=== PATIENT | female | born 1990 | race African-American/Black ===

== ENCOUNTER 2017-04-21 10:23 | Inpatient (IN) ==
[2017-04-21] MEDS ORDERED: SODIUM CHLORIDE 0.9% 250 ML IV PRN (11:23)
[2017-04-21] MEDS ORDERED: ACETAMINOPHEN 325 MG TABLET PO PRN (11:28)
--- NOTE | 2017-04-21 11:44 | Nephrology History & Physical ---
History of Present Illness Chief complaint: Uremia, anemia History of present illness: Ms. Carter is a 26 year old female with known chronic renal failure. She presents to the office today as a working and because of shortness of breath with exertion a.m. nausea and anorexia. Also with increasing edema. She has renal failure due to nephrosclerosis and hypertension. She was to have had a peritoneal catheter placed next week but with the development of symptomatic uremia we had recommended that she go ahead and begin hemodialysis and get a peritoneal catheter later. Creatinine is 9.8 She has a hematocrit of 22 and will need blood transfusion. Iron saturation is 13%. She will be given intravenous iron as well. She has 4 children at home and hopes to peritoneal dialysis will allow her to be with them more. For now she needs to go ahead and begin dialysis, get transfused, and began to feel better. Home Medications Medication Instructions Recorded Confirmed Type Insulin Glargine,Hum.rec.anlog 10 unit SUBCUT BEDTIME 04/13/17 04/21/17 History [Kristen Ruvalcaba] Sodium Bicarb Tab 650 mg PO BID 04/13/17 04/21/17 History amLODIPine [Norvasc] 10 mg PO DAILY 04/13/17 04/21/17 History Allergies Allergy/AdvReac Type Severity Reaction Status Date / Time No Known Allergies Allergy Verified 04/21/17 11:25 Review of Systems 12 point system: reviewed and no additional remarkable complaints except as stated Medical,Surgical,& Family Hx - Medical History Cardio: History of: Hypertension HEENT: History of: Eye Problem (Wears glasses) Endocrine: History of: Diabetes Mellitus (IDDM), Diabetes Mellitus (NIDDM) Respiratory: History of: Pneumonia Renal: History of: Renal Failure Hematology: History of: Anemia - Surgical History HEENT Surgeries: Surgical HX of: Tonsilectomy & Adenoidectomy - Family History Family History: Reports;: Family Hypertension (Father, sister), Family Psychiatric Problems (brother, sister) Denies;: Family Anesthesia Reaction, Family Cancer, Family Diabetes, Family Heart Disease, Family Stroke - Social History Smoking Status: Current every day smoker Exam - Nephrology - General Appearance General appearance: anxious EENT: ATNC Neck: no JVD, no thyromegaly, no carotid bruit, supple Respiratory: no kyphosis, no scoliosis Cardiology: no murmurs, no rub, no gallops, no edema, regular rate, regular rhythm, normal S1, normal S2 Gastrointestinal: normoactive bowel sounds Integumentary: no rash, warm and dry Neurologic: no focal deficit, no asterixis, alert and oriented x3, reflexes 2+ and symmetric, gait normal, strength 5/5 Musculoskeletal: no deformities, no erythema, no cyanosis, no clubbing Psychiatric: mood/affect appropriate (2+ edema), cooperative Assessment and Plan (1) ESRD (end stage renal disease) Status: Acute Assessment and plan: Begin hemodialysis Current Visit: Yes (2) Anemia Status: Acute Current Visit: Yes Qualifiers: Anemia type: due to chronic kidney disease
[2017-04-21] MEDS ORDERED: GLUCAGON 1 MG VIAL IM PRN ×2 (11:49→17:18)
[2017-04-21] MEDS ORDERED: DEXTROSE 50% 25 GM/50 ML SYRINGE IV PRN (11:49)
--- NOTE | 2017-04-21 12:15 | General Surgery Consult Note ---
Assessment and Plan (1) ESRD (end stage renal disease) Status: Acute Assessment and plan: Patient has peritoneal catheter placement scheduled for Wednesday, April 26, 2017. At this time she has developed worsening renal failure with symptomatic uremia and it is recommended she proceed with hemodialysis today, so she will require placement of a tunneled hemodialysis catheter. Current Visit: Yes History of Present Illness Chief complaint: increased edema History of present illness: Ms. 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 Rivera with placement of peritoneal catheter scheduled for April. Unfortunately in the interim, the patient has developed nausea symptomatic uremia with creatinine of 9.8. She was admitted for tunneled hemodialysis catheter placement to receive hemodialysis and blood transfusion. Home Medications Medication Instructions Recorded Confirmed Type Insulin Glargine,Hum.rec.anlog 10 unit SUBCUT BEDTIME 04/13/17 04/21/17 History [Toujeo SoloStar] Sodium Bicarb Tab 650 mg PO BID 04/13/17 04/21/17 History amLODIPine [Norvasc] 10 mg PO DAILY 04/13/17 04/21/17 History Gabapentin Cap/Tab [Neurontin 300 mg PO BEDTIME 04/21/17 04/21/17 History Cap/Tab] Allergies Allergy/AdvReac Type Severity Reaction Status Date / Time No Known Allergies Allergy Verified 04/21/17 11:25 Medical,Surgical,& Family Hx - Medical History Cardio: History of: Hypertension HEENT: History of: Eye Problem (Wears glasses) Endocrine: History of: Diabetes Mellitus (IDDM), Diabetes Mellitus (NIDDM) Respiratory: History of: Pneumonia Renal: History of: Renal Failure (ESRD - progressed secondary to nephrosclerosis due to HTN) Hematology: History of: Anemia - Surgical History HEENT Surgeries: Surgical HX of: Tonsilectomy & Adenoidectomy - Family History Family History: Reports;: Family Hypertension (Father, sister), Family Psychiatric Problems (brother, sister) Denies;: Family Anesthesia Reaction - Social History Smoking Status: Current every day smoker Frequency of Alcohol Use: None Type of Drug Use: None - Constitutional Constitutional: Absent: chills, fever(s) - Cardiovascular Cardiovascular: Absent: chest pain at rest, chest pain with activity - Respiratory Respiratory: Present: as per HPI. Absent: wheezing - Gastrointestinal Gastrointestinal: Present: as per HPI. Absent: diarrhea, vomiting Exam - Constitutional Vitals: Period Temp Pulse Resp BP Sys/Ayoub Pulse Ox Last 24 Hr 98.4 F 104 16-18 149/88 100 General appearance: no acute distress - Respiratory Respiratory exam: Present: clear to auscultation bilaterally - Cardiovascular Cardiovascular exam: Present: RRR - GI/Abdominal GI/Abdominal exam: Present: normal bowel sounds, soft. Absent: tenderness - Neurological Exam Neurological exam: Present: alert, oriented X3 - Skin Skin exam: Present: normal color Results - Labs Labs: Pending Dr. Valdes reported creatinine 9.8 in office and Hct 22.
[2017-04-21 12:35] LABS: Alanine Aminotransferase 18 U/L (13-56); Albumin 3.3 G/DL (3.4-5.0); Alkaline Phosphatase 95 U/L (45-117); Aspartate Amino Transferase 14 U/L (0-37); Bilirubin,Total < 0.39 MG/DL (0.2-1.0); Blood Urea Nitrogen 60 MG/DL (7-18); Calcium 8.8 MG/DL (8.5-10.1); Glucose 187 MG/DL (74-106); Osmolality,Calculated 300.4 MOS/KG (273-304); Potassium 5.1 MMOL/L (3.5-5.1); Sodium 140 MMOL/L (136-145); Total Protein 7.4 G/DL (6.4-8.3)
[2017-04-21] MEDS ORDERED: BUPIVACAINE 0.25% 50 ML VIAL ONE (12:39)
[2017-04-21] MEDS ORDERED: LIDOCAINE 1%/EPI INJ 20 ML VIAL ONE (12:39)
[2017-04-21] MEDS ORDERED: HEPARIN 5,000 UNIT/1 ML VIAL ONE (12:39)
[2017-04-21] MEDS ORDERED: LIDOCAINE 2% 5 ML VIAL ONE (13:40)
[2017-04-21] MEDS ORDERED: DEXAMETHASONE 4 MG/1 ML VIAL ONE (13:40)
[2017-04-21] MEDS ORDERED: PROPOFOL 200 MG/20 ML VIAL IV ONE (13:40)
[2017-04-21] MEDS ORDERED: ONDANSETRON 4 MG/2 ML VIAL ONE (13:40)
[2017-04-21] MEDS ORDERED: KETAMINE 500 MG/10 ML VIAL ONE (13:58)
--- NOTE | 2017-04-21 14:17 | Anesthesia Post-Op ---
Anesthesia Post OP - Post Ansesthetic Evaluation Patient seen in post op: Yes Resp: within normal limits CV: within normal limits Mental: within normal limits Temp: within normal limits [id number]: within normal limits Nausea and Vomiting: within normal limits Pain: within normal limits
[2017-04-21] MEDS ORDERED: fentaNYL 100 MCG/2 ML VIAL ONE (14:20)
[2017-04-21] MEDS ORDERED: MIDAZOLAM 2 MG/2 ML VIAL ONE (14:20)
--- NOTE | 2017-04-21 14:40 | XRay Report ---
Exam: XR chest 1V portable Date: 04/21/2017 2:04 PM Indication: Dialysis catheter placement Comparison: 11/03/2013 Technical: AP Findings: A right IJ dialysis catheter has been placed with the distal tip in the right atrium. Mild cardiac enlargement. No pneumothorax. External cardiac leads are present. Mediastinum is intact. Mid inspiratory chest was obtained with mild interstitial edema Impression: 1. Interval placement of the right-sided dialysis catheter 2. Cardiomegaly with mild interstitial edema 3. No pneumothorax PROCEDURE INTERPRETED AT [facility] DEPARTMENT OF RADIOLOGY Final Report Signed by: Dr. Jim Lake
--- NOTE | 2017-04-21 15:18 | Dialysis Note ---
Dialysis Note - Dialysis Note First dialysis with catheter going well. Good blood flow and tolerating well. Will be transfused today. We will begin iron tomorrow since her iron saturation is only 13% and will begin Epogen tomorrow as well.
[2017-04-21] MEDS ORDERED: EPOETIN ALFA 10,000 UNIT/1 ML VIAL IV PRN (15:19)
--- NOTE | 2017-04-21 16:07 | Operative Note ---
Date of procedure: 04/21/17 Pre-op diagnosis: End-stage renal disease Post-op diagnosis: same Procedure: Procedure performed: Placement of right internal jugular tunneled hemodialysis catheter Procedure in detail: After informed consent was obtained, the patient was taken operating suite lies upon the operating table. After monitored anesthesia initiated the bilateral neck and chest were prepped and draped in usual sterile fashion. After procedural pause local anesthetic infiltrated skin and subcutaneous tissue the right neck. Ultrasound confirmed a patent and compressible right internal jugular vein. The right internal jugular vein was then accessed using an 18-gauge Seldinger needle under ultrasound guidance on the first attempt. There was return of nonpulsatile dark red blood. Guidewire inserted without resistance. Fluoroscopy demonstrated guidewire be coursing in the appropriate position. Next a 19 cm cuffed hemodialysis catheter was tunneled from a separate incision in the right chest wall up to the base the right neck. Dilator and sheath were placed over the guidewire using Seldinger technique under fluoroscopic guidance. The dilator and guidewire were removed leaving the sheath in place. Catheter inserted through the sheath and sheath peeled away leaving the catheter tip at the junction of the superior vena cava and right atrium. Catheter was slightly longer than usual but I was unable to bring it any further back because on the outside it would be intact to her right breast. The catheter withdrew and flushed easily and was locked with heparinized saline. There was good hemostasis and the incision was closed with 2-0 nylon. Catheter was secured in place with 2-0 nylon. Sterile dressings applied. The patient was taken recovery room in stable condition. All lap and needle counts correct at the end of the case. Anesthesia: MAC, local Surgeon / Physician: Tristin Rivera Estimated blood loss: other (Less than 10 cc) Specimens: none sent Condition: stable Disposition: PACU Results - Labs CBC & BMP: 04/21/17 11:45 Discharge Plan - Discharge Medications No Action amLODIPine [Norvasc] 10 mg PO DAILY Sodium Bicarb Tab 650 mg PO BID Insulin Glargine,Hum.rec.anlog [Kristen Ruvalcaba] 10 unit SUBCUT BEDTIME Gabapentin Cap/Tab [Neurontin Cap/Tab] 300 mg PO BEDTIME - Follow Up or Referral - Forms/Instructions
[2017-04-21] MEDS ORDERED: HEPARIN 10,000 UNIT/10 ML VIAL IV PRN (16:40)
[2017-04-21] MEDS ORDERED: DEXTROSE 50% 25 GM/50 ML VIAL IV PRN (17:18)
--- NOTE | 2017-04-21 17:26 | Interventional Radiology Rpt ---
IR fluoro guide cv cath Indication: Dialysis catheter placement. Fluoroscopy chest: 2 captured fluoroscopic images show a tunneled right IJ dialysis catheter with the tip in the high right atrium. No pneumothorax seen. Fluoroscopy time: 10 seconds, 2 captured images. Impression: Dialysis catheter as described. PROCEDURE INTERPRETED AT [facility] DEPARTMENT OF RADIOLOGY Final Report Signed by: Chauncey Ramirez M.D.
[2017-04-21] MEDS: traMADol 50 MG TABLET PO PRN (17:45)
[2017-04-21] MEDS: INSULIN LISPRO 100 UNIT/ML SUBCUT SCH ×2 (17:46→20:49)
[2017-04-21] MEDS: MORPHINE 2 MG/1 ML SYRINGE IV PRN (19:47)
[2017-04-21] MEDS: GABAPENTIN 300 MG CAPSULE PO SCH (20:49)
[2017-04-22] MEDS ORDERED: IRON SUCROSE 100 MG/5 ML VIAL IV SCH (00:01)
[2017-04-22 06:28] LABS: Basophils % 0.4 % (0.0-0.8); Eosinophils # 0.3 10*3/uL (0.0-0.87); Eosinophils % 3.2 % (0.00-10.9); Hematocrit 28.7 VOL% (35.7-47.0); Hemoglobin 9.9 GM/DL (12.0-16.0); Immature Granulocytes % 0.5 %; Immature Granulocytes Absolute 0.05 #; Lymphocytes # 3.4 10*3/uL (1.4-4.0); Lymphocytes % 34.3 % (21.3-54.2); Mean Corpuscular HGB Conc 34.5 GM/DL (32-36); Mean Corpuscular Hemoglobin 28 PG (27-34); Mean Corpuscular Volume 81.1 FL (87-102); Mean Platelet Volume 8.4 FL (9.6-12.0); Monocytes # 0.6 10*3/uL (0.11-0.8); Neutrophils # 5.6 10*3/uL (1.4-7.4); Neutrophils % 55.6 % (38.7-73.9); Platelet Count 265 T/CUMM (130-400); Red Blood Count 3.54 MC/CUMM (3.8-5.5); Red Cell Distribution Width 14.6 % (9.3-17.3)
[2017-04-22 08:01] LABS: Hepatitis A Ab IgM Result Negative (Negative); Hepatitis B Core IgM Quant 0.15 Index; Hepatitis B Core IgM Result Negative (Negative); Hepatitis B Surface Ag Quant 0.34 Index; Hepatitis B Surface Ag Result Negative (Negative); Hepatitis C Virus Ab Quant 0.05 Index; Hepatitis C Virus Ab Result Negative (Negative)
[2017-04-22] MEDS: MORPHINE 2 MG/1 ML SYRINGE IV PRN ×3 (08:22→21:12)
[2017-04-22] MEDS: INSULIN LISPRO 100 UNIT/ML SUBCUT SCH ×4 (08:22→21:11)
[2017-04-22] MEDS: amLODIPine 10 MG TABLET PO SCH (08:22)
[2017-04-22] MEDS ORDERED: INSULIN GLARGINE 100 UNIT/ML SUBCUT SCH (09:00)
--- NOTE | 2017-04-22 12:43 | Dialysis Note ---
Dialysis Note - Dialysis Note Ms. Carter is seen during her hemodialysis. She received Venofer as an iron supplement today during dialysis and we remove 3 kg of volume. She is feeling better and says her chilly sensation has completely gone away after transfusion 2 units packed red cells. Her hematocrit is 28. Plan is for probable dialysis tomorrow and then discharge to outpatient status we are awaiting a dialysis schedule as an outpatient.
--- NOTE | 2017-04-22 13:51 | Event Note ---
Patient was on her 1 status post tunneled hemodialysis catheter placement the right internal jugular vein for urgent dialysis. She has received dialysis and blood transfusion through this access without complication. There is no local evidence of an infection or hematoma. She feels much improved since admission. Patient is scheduled for peritoneal dialysis catheter on Wednesday and has instructions for arrival.
[2017-04-22] MEDS: traMADol 50 MG TABLET PO PRN (14:09)
[2017-04-22] MEDS: GABAPENTIN 300 MG CAPSULE PO SCH (21:11)
[2017-04-23 07:46] VITALS: BP 138/88
[2017-04-23] MEDS: amLODIPine 10 MG TABLET PO SCH (09:05)
[2017-04-23] MEDS: INSULIN LISPRO 100 UNIT/ML SUBCUT SCH ×2 (09:05→11:53)
--- NOTE | 2017-04-23 09:55 | Dialysis Note ---
Dialysis Note - Dialysis Note Ms. Carter is seen during her hemodialysis. She is tolerating it well we are removing more fluid today she will be discharged postdialysis and will have her peritoneal catheter placed on Wednesday. She will then go for hemodialysis Wednesday at the [facility].
--- NOTE | 2017-04-23 09:57 | Discharge Summary ---
Hospital Course - Hospital Course Hospital Course: Ms. Carter is a 26-year-old lady who presented with uremia and was admitted for placement of hemodialysis catheter and institution of dialysis. Dr. Rivera placed catheter and she had dialysis on the . She received 2 units packed red cells on the and experienced significant improvement in her exercise tolerance. She has a hematocrit of approximately 28 at discharge and is now well dialyzed. He ultimately hopes to do peritoneal dialysis and was scheduled to have peritoneal dialysis catheter placed on this coming Wednesday. She will have that done and we will continue with hemodialysis until she is able to begin training with her peritoneal dialysis. She will be followed in the hemodialysis unit and subsequently in the peritoneal dialysis unit. See medication list below Final diagnosis end-stage renal disease #2 symptomatic anemia #3 hypertension Disposition hemo-dialysis Wednesday thank you - Time spent with patient Time with patient DS: Greater than 30 minutes Time spent discussing smoking cessation with patient: 3 to 10 minutes Diagnosis - Discharge Diagnosis (1) ESRD (end stage renal disease) Status: Acute (2) Anemia Status: Chronic Specialty Discharge - Follow Up or Referrals - Speciality Discharge Instructions Nephrology Instructions: Hemodialysis as scheduled Wednesday. Placement of peritoneal catheter next week by Dr. Abernathy as scheduled. Discharge Plan - Discharge Data Condition at Discharge: Stable Discharge Diet: advance to your usual diet Activity: resume usual activities as tolerated Hygiene: no restrictions Weight Bearing at Discharge: full weight bearing Driving: no restrictions - Discharge Medications New Iron Sucrose [Venofer] 100 mg IV WITH DIALYSIS vial traMADol TAB [Ultram] 50 mg PO Q6H PRN tablet PRN Reason: Pain Acetaminophen Tab [Tylenol Tab] 650 mg PO Q6H PRN tablet PRN Reason: Fever, Headache, Mild Pain amLODIPine [Norvasc] 10 mg PO DAILY tablet Continue Gabapentin Cap/Tab [Neurontin Cap/Tab] 300 mg PO BEDTIME No Action amLODIPine [Norvasc] 10 mg PO DAILY Sodium Bicarb Tab 650 mg PO BID Insulin Glargine,Hum.rec.anlog [Kristen Ruvalcaba] 10 unit SUBCUT BEDTIME - Follow Up or Referral - Forms/Instructions Exam - Constitutional Vitals: Period Temp Pulse Resp BP Sys/Ayoub Pulse Ox Last 24 Hr 97.0 F-98.8 F 85-107 16-20 128-155/70-98 92-98 Discharge Results Labs on day of discharge: Labs from last 24 hours 04/22/17 04/22/17 04/22/17 20:03 16:09 13:36 POC Glucose 110 H 343 H 138 H DS: Provider Date of admission: 04/21/17 10:48 Primary care physician: GAMA Dorman Attending physician on admission: Gene Valdes MD Consults: 04/21/17 12:10 Consult to Physician [CONS] Routine Comment: Consulting Provider: Tristin Rivera Person Notified: Attending physician Consult Notification Comment: No call required. Dr. Rivera aware and has seen patient. 04/21/17 12:53 Consult to Case Mgmt/Social Srvs [CONS] Routine Reason for Case Mgmt/Social Srvs: Other Consult Comment: having trouble getting insulin and diabetic supplies /ins related 04/21/17 14:36 Consult to Case Mgmt/Social Srvs [CONS] Routine Reason for Case Mgmt/Social Srvs: Other Consult Comment: will be new hemodialysis pt 04/21/17 15:06 Consult to Case Mgmt/Social Srvs [CONS] Routine Reason for Case Mgmt/Social Srvs: Dialysis Consult Comment: arrange outpt dialysis Discharging clinician: Gene Valdes MD
== END 2017-04-23 14:44 | disposition home or self-care (01) | DRG 950 ==
LOC: N.5E 10:48
PROVIDERS: ADMIT Internal Medicine Nephrology; ATTEND Internal Medicine Nephrology

== ENCOUNTER 2018-03-30 22:32 | Inpatient (IN) ==
[2018-03-30] MEDS ORDERED: ONDANSETRON 4 MG/2 ML VIAL IV STA (23:12)
[2018-03-30] MEDS ORDERED: METOCLOPRAMIDE 10 MG/2 ML VIAL IV STA (23:12)
[2018-03-30] MEDS ORDERED: DICYCLOMINE 20 MG/2 ML AMP IM ONE (23:12)
[2018-03-31 00:01] LABS: Basophils % 0.1 % (0.0-0.8); Eosinophils # 0.2 10*3/uL (0.0-0.87); Eosinophils % 1.3 % (0.00-10.9); Hematocrit 36.7 VOL% (35.7-47.0); Hemoglobin 11.6 GM/DL (12.0-16.0); Immature Granulocytes % 0.5 %; Immature Granulocytes Absolute 0.08 #; Lymphocytes # 2.5 10*3/uL (1.4-4.0); Lymphocytes % 16.6 % (21.3-54.2); Mean Corpuscular HGB Conc 31.6 GM/DL (32-36); Mean Corpuscular Hemoglobin 25 PG (27-34); Mean Corpuscular Volume 78.1 FL (87-102); Mean Platelet Volume 9.9 FL (9.6-12.0); Monocytes # 0.6 10*3/uL (0.11-0.8); Monocytes % 3.9 % (1.7-12.7); Neutrophils # 11.4 10*3/uL (1.4-7.4); Neutrophils % 77.6 % (38.7-73.9); Platelet Count 238 T/CUMM (130-400); Red Cell Distribution Width 17.9 % (9.3-17.3); White Blood Count 14.7 T/CUMM (4-12)
[2018-03-31 00:16] LABS: Alanine Aminotransferase 16 U/L (13-56); Albumin 2.7 G/DL (3.4-5.0); Alkaline Phosphatase 132 U/L (45-117); Amylase 92 U/L (25-115); Aspartate Amino Transferase 23 U/L (0-37); Bilirubin,Total < 0.39 MG/DL (0.2-1.0); Blood Urea Nitrogen 44 MG/DL (7-18); Calcium 8.6 MG/DL (8.5-10.1); Glucose 117 MG/DL (74-106); Lactic Acid 0.8 MMOL/L (0.4-2.0); Osmolality,Calculated 292.3 MOS/KG (273-304); Potassium 3.6 MMOL/L (3.5-5.1); Sodium 141 MMOL/L (136-145); Total Protein 7.2 G/DL (6.4-8.3)
[2018-03-31] MEDS ORDERED: ONDANSETRON 4 MG/2 ML VIAL IV STA (00:39)
[2018-03-31] MEDS ORDERED: fentaNYL 100 MCG/2 ML VIAL IV STA (00:39)
[2018-03-31] MEDS ORDERED: hydrALAZINE 20 MG/1 ML VIAL IV STA (01:07)
[2018-03-31] MEDS ORDERED: HYDROmorphone 2 MG/1 ML VIAL IV ONE (02:33)
[2018-03-31] MEDS ORDERED: PROMETHAZINE 25 MG/1 ML VIAL IM STA (02:33)
[2018-03-31] MEDS ORDERED: HYDROmorphone 2 MG/1 ML VIAL ONE (02:35)
[2018-03-31 02:59] LABS: RBC,Peritoneal Fluid 2153 T/CUMM
[2018-03-31 03:03] LABS: Neutrophils,Peritoneal Fluid 86 %
[2018-03-31] MEDS ORDERED: VANCOMYCIN INJ 1,000 MG in SODIUM CHLORIDE 0.9% 250 ML IV ONE (03:53)
[2018-03-31] MEDS ORDERED: LACTULOSE 20 GM/30 ML UDCUP PO PRN (03:53)
[2018-03-31] MEDS ORDERED: diphenhydrAMINE CAP 25 MG CAPSULE PO PRN (03:53)
[2018-03-31] MEDS ORDERED: ONDANSETRON 4 MG/2 ML VIAL IV PRN (03:53)
[2018-03-31] MEDS ORDERED: ACETAMINOPHEN 325 MG TABLET PO PRN (03:53)
[2018-03-31] MEDS ORDERED: GLUCAGON 1 MG VIAL IM PRN ×2 (04:11→08:00)
[2018-03-31] MEDS: SODIUM CHLORIDE 0.9% 1,000 ML IV SCH (05:01)
[2018-03-31] MEDS: MORPHINE 4 MG/1 ML VIAL IV PRN (06:11)
[2018-03-31 06:20] LABS: Basophils % 0.1 % (0.0-0.8); Eosinophils % 0.1 % (0.00-10.9); Hematocrit 38.2 VOL% (35.7-47.0); Hemoglobin 12.1 GM/DL (12.0-16.0); Immature Granulocytes % 0.5 %; Immature Granulocytes Absolute 0.05 #; Lymphocytes % 18.1 % (21.3-54.2); Mean Corpuscular HGB Conc 31.7 GM/DL (32-36); Mean Corpuscular Hemoglobin 25 PG (27-34); Mean Corpuscular Volume 78.3 FL (87-102); Mean Platelet Volume 9.5 FL (9.6-12.0); Monocytes # 0.4 10*3/uL (0.11-0.8); Monocytes % 3.5 % (1.7-12.7); Neutrophils # 8.5 10*3/uL (1.4-7.4); Neutrophils % 77.7 % (38.7-73.9); Platelet Count 252 T/CUMM (130-400); Red Blood Count 4.88 MC/CUMM (3.8-5.5); Red Cell Distribution Width 18.5 % (9.3-17.3)
[2018-03-31 06:55] LABS: Albumin 2.6 G/DL (3.4-5.0); Bilirubin,Total 0.6 MG/DL (0.2-1.0); Calcium 8.6 MG/DL (8.5-10.1); Osmolality,Calculated 288.5 MOS/KG (273-304); Total Protein 7.4 G/DL (6.4-8.3)
[2018-03-31] MEDS ORDERED: DEXTROSE 50% 25 GM/50 ML VIAL IV PRN (08:00)
[2018-03-31] MEDS ORDERED: SEVELAMER CARBONATE 800 MG TABLET PO SCH (09:00)
[2018-03-31] MEDS: INSULIN REGULAR 100 UNIT/ML SUBCUT SCH ×4 (09:08→20:54)
[2018-03-31] MEDS: IRBESARTAN 150 MG TABLET PO SCH (09:09)
[2018-03-31] MEDS: CARVEDILOL 25 MG TABLET PO SCH ×2 (09:09→20:52)
[2018-03-31] MEDS: CALCITRIOL 0.25 MCG CAPSULE PO SCH (09:09)
[2018-03-31] MEDS: amLODIPine 10 MG TABLET PO SCH (09:09)
[2018-03-31] MEDS: CINACALCET 30 MG TABLET PO SCH (09:09)
[2018-03-31] MEDS: DEXTROSE 50% 25 GM/50 ML VIAL IV PRN ×2 (11:07→11:40)
[2018-03-31] MEDS ORDERED: GENTAMICIN 80 MG/2 ML VIAL INTRAPERIT ONE (11:09)
[2018-03-31] MEDS: SEVELAMER CARBONATE 800 MG TABLET PO SCH ×2 (11:56→16:51)
[2018-03-31 14:16] LABS: Apearance,Urine CLEAR (Clear); Bacteria,Urine Occasional /HPF (Few); Bilirubin,Urine Negative (Negative); Blood, Urine Small mg/dL (Negative); Glucose,Urine (UA) 150 mg/dL (Negative); Ketones,Urine Negative (Negative); Mucus,Urine Occasional /LPF (Occasional); Nitrite,Urine Negative (Negative); Protein,Urine >=500 MG/DL; RBC,Urine 4 /HPF (0-4); Squamous Epithelial Cell,Urine Occasional /HPF (0-10); Urine Color Straw (Yellow); Urine Specific Gravity 1.005 (1.001-1.035); Urine Urobilinogen < 2.0 EU/DL (0.2-1.0); WBC,Urine 9 /HPF (0-6)
[2018-03-31] MEDS ORDERED: GENTAMICIN 80 MG/2 ML VIAL INTRAPERIT SCH (18:00)
[2018-03-31] MEDS ORDERED: INSULIN GLARGINE 100 UNIT/ML SUBCUT SCH (21:00)
[2018-04-01] MEDS: MORPHINE 4 MG/1 ML VIAL IV PRN (00:03)
[2018-04-01] MEDS: GENTAMICIN 80 MG/2 ML VIAL INTRAPERIT SCH ×4 (00:08→18:45)
[2018-04-01] MEDS: SODIUM CHLORIDE 0.9% 1,000 ML IV SCH ×2 (03:20→23:49)
[2018-04-01] MEDS: INSULIN REGULAR 100 UNIT/ML SUBCUT SCH ×5 (08:14→23:00)
[2018-04-01] MEDS: CARVEDILOL 25 MG TABLET PO SCH ×2 (08:27→21:52)
[2018-04-01] MEDS: CINACALCET 30 MG TABLET PO SCH (08:27)
[2018-04-01] MEDS: CALCITRIOL 0.25 MCG CAPSULE PO SCH (08:27)
[2018-04-01] MEDS: amLODIPine 10 MG TABLET PO SCH (08:27)
[2018-04-01] MEDS: SEVELAMER CARBONATE 800 MG TABLET PO SCH ×3 (08:27→17:06)
[2018-04-01] MEDS: IRBESARTAN 150 MG TABLET PO SCH (08:27)
[2018-04-01] MEDS ORDERED: VANCOMYCIN INJ 1,000 MG in SODIUM CHLORIDE 0.9% 250 ML IV PRN (13:00)
[2018-04-02] MEDS: GENTAMICIN 80 MG/2 ML VIAL INTRAPERIT SCH ×4 (00:15→17:58)
[2018-04-02] MEDS: SODIUM CHLORIDE 0.9% 1,000 ML IV SCH (06:22)
[2018-04-02] MEDS: SEVELAMER CARBONATE 800 MG TABLET PO SCH ×3 (08:29→17:29)
[2018-04-02] MEDS: amLODIPine 10 MG TABLET PO SCH (08:29)
[2018-04-02] MEDS: CALCITRIOL 0.25 MCG CAPSULE PO SCH (08:29)
[2018-04-02] MEDS: CARVEDILOL 25 MG TABLET PO SCH ×2 (08:29→21:09)
[2018-04-02] MEDS: CINACALCET 30 MG TABLET PO SCH (08:29)
[2018-04-02] MEDS: IRBESARTAN 150 MG TABLET PO SCH (08:29)
[2018-04-02] MEDS ORDERED: VANCOMYCIN INJ 1,000 MG in SODIUM CHLORIDE 0.9% 250 ML IV ONE (09:00)
[2018-04-02] MEDS: INSULIN REGULAR 100 UNIT/ML SUBCUT SCH ×3 (10:26→17:28)
[2018-04-03] MEDS: GENTAMICIN 80 MG/2 ML VIAL INTRAPERIT SCH ×4 (00:09→18:34)
[2018-04-03] MEDS: SODIUM CHLORIDE 0.9% 1,000 ML IV SCH (03:51)
[2018-04-03] MEDS: amLODIPine 10 MG TABLET PO SCH (08:44)
[2018-04-03] MEDS: SEVELAMER CARBONATE 800 MG TABLET PO SCH ×3 (08:44→17:02)
[2018-04-03] MEDS: CALCITRIOL 0.25 MCG CAPSULE PO SCH (08:44)
[2018-04-03] MEDS: CARVEDILOL 25 MG TABLET PO SCH ×2 (08:44→22:08)
[2018-04-03] MEDS: IRBESARTAN 150 MG TABLET PO SCH (08:44)
[2018-04-03] MEDS: INSULIN REGULAR 100 UNIT/ML SUBCUT SCH ×4 (08:44→22:16)
[2018-04-03] MEDS: CINACALCET 30 MG TABLET PO SCH (08:45)
[2018-04-04] MEDS: GENTAMICIN 80 MG/2 ML VIAL INTRAPERIT SCH ×3 (00:12→12:25)
[2018-04-04] MEDS: INSULIN REGULAR 100 UNIT/ML SUBCUT SCH ×3 (10:05→16:54)
[2018-04-04] MEDS: CALCITRIOL 0.25 MCG CAPSULE PO SCH (10:06)
[2018-04-04] MEDS: CARVEDILOL 25 MG TABLET PO SCH (10:06)
[2018-04-04] MEDS: CINACALCET 30 MG TABLET PO SCH (10:06)
[2018-04-04] MEDS: IRBESARTAN 150 MG TABLET PO SCH (10:06)
[2018-04-04] MEDS: SEVELAMER CARBONATE 800 MG TABLET PO SCH ×3 (10:06→16:35)
[2018-04-04] MEDS: amLODIPine 10 MG TABLET PO SCH (10:06)
[2018-04-04 16:21] VITALS: BP 133/85
[2018-04-04] MEDS ORDERED: VANCOMYCIN INJ 1,000 MG in SODIUM CHLORIDE 0.9% 250 ML IV ONE (21:00)
== END 2018-04-04 16:45 | disposition home or self-care (01) | DRG 466 ==
LOC: EDUNIT# → EDBD → N.ED 22:32 → N.EDINP 22:32 → SUATTDRO 03-31 03:42 → N.5E 03-31 05:15 → SUATTDRO 04-01 12:35
PROVIDERS: ADMIT Nurse Practitioner Adult Health; ATTEND Internal Medicine

== ENCOUNTER 2018-10-02 12:52 | Inpatient (IN) ==
[2018-10-02] MEDS ORDERED: amLODIPine 5 MG TABLET PO STA (13:37)
[2018-10-02] MEDS ORDERED: CARVEDILOL 3.125 MG TABLET PO STA (13:40)
[2018-10-02 13:51] LABS: Basophils % 0.4 % (0.0-0.8); Eosinophils # 0.1 10*3/uL (0.0-0.87); Eosinophils % 1.6 % (0.00-10.9); Hematocrit 35.7 VOL% (35.7-47.0); Hemoglobin 10.8 GM/DL (12.0-16.0); Immature Granulocytes % 0.5 %; Immature Granulocytes Absolute 0.04 #; Lymphocytes # 1.8 10*3/uL (1.4-4.0); Lymphocytes % 24.4 % (21.3-54.2); Mean Corpuscular HGB Conc 30.3 GM/DL (32-36); Mean Corpuscular Hemoglobin 23 PG (27-34); Mean Corpuscular Volume 76.9 FL (87-102); Mean Platelet Volume 9.2 FL (9.6-12.0); Monocytes # 0.5 10*3/uL (0.11-0.8); Neutrophils # 4.9 10*3/uL (1.4-7.4); Neutrophils % 66.1 % (38.7-73.9); Platelet Count 201 T/CUMM (130-400); Red Blood Count 4.64 MC/CUMM (3.8-5.5); Red Cell Distribution Width 18.9 % (9.3-17.3); White Blood Count 7.4 T/CUMM (4-12)
[2018-10-02 14:07] LABS: Bilirubin,Total 0.4 MG/DL (0.2-1.0); Calcium 8.1 MG/DL (8.5-10.1); Osmolality,Calculated 283.7 MOS/KG (273-304); Potassium 3.5 MMOL/L (3.5-5.1); Total Protein 6.7 G/DL (6.4-8.3)
[2018-10-02 15:10] LABS: Apearance,Urine Slightly Hazy (Clear); Bilirubin,Urine Negative (Negative); Blood, Urine Small mg/dL (Negative); Glucose,Urine (UA) 50 mg/dL (Negative); Ketones,Urine Negative (Negative); Mucus,Urine Occasional /LPF (Occasional); Nitrite,Urine Negative (Negative); Protein,Urine >=500 MG/DL; RBC,Urine 10 /HPF (0-4); Squamous Epithelial Cell,Urine Occasional /HPF (0-10); Urine Color Yellow (Yellow); Urine Specific Gravity 1.011 (1.001-1.035); Urine Urobilinogen < 2.0 EU/DL (0.2-1.0); WBC,Urine 6 /HPF (0-6)
[2018-10-02] MEDS: LOSARTAN 50 MG TABLET PO SCH (15:30)
[2018-10-02] MEDS ORDERED: BISACODYL 5 MG TABLET PO PRN (15:48)
[2018-10-02] MEDS ORDERED: GLUCAGON 1 MG VIAL IM PRN (15:48)
[2018-10-02] MEDS ORDERED: DEXTROSE 50% 25 GM/50 ML VIAL IV PRN (15:48)
[2018-10-02] MEDS ORDERED: ZALEPLON 5 MG CAPSULE PO PRN (15:48)
[2018-10-02 17:22] LABS: Neutrophils,Peritoneal Fluid 59 %; RBC,Peritoneal Fluid 46 T/CUMM
[2018-10-02] MEDS ORDERED: MORPHINE 4 MG/1 ML VIAL IV STA (18:06)
[2018-10-02] MEDS ORDERED: ONDANSETRON 4 MG/2 ML VIAL ONE (18:07)
[2018-10-02] MEDS ORDERED: MORPHINE 4 MG/1 ML VIAL ONE (18:08)
[2018-10-02] MEDS: ONDANSETRON 4 MG/2 ML VIAL IV PRN (18:13)
[2018-10-02] MEDS: CARVEDILOL 25 MG TABLET PO SCH (20:30)
[2018-10-02] MEDS ORDERED: SEVELAMER HCL 800 MG PO SCH (21:00)
[2018-10-02] MEDS: INSULIN NPH 100 UNIT/ML SUBCUT SCH (21:02)
[2018-10-02] MEDS: INSULIN REGULAR 100 UNIT/ML SUBCUT SCH (21:03)
[2018-10-02] MEDS: ENOXAPARIN 30 MG/0.3 ML SYRINGE SUBCUT SCH (21:03)
[2018-10-03 06:22] LABS: Basophils % 0.2 % (0.0-0.8); Eosinophils # 0.3 10*3/uL (0.0-0.87); Eosinophils % 3.1 % (0.00-10.9); Hematocrit 31.8 VOL% (35.7-47.0); Hemoglobin 9.9 GM/DL (12.0-16.0); Immature Granulocytes % 0.4 %; Immature Granulocytes Absolute 0.03 #; Lymphocytes # 2.6 10*3/uL (1.4-4.0); Lymphocytes % 32.5 % (21.3-54.2); Mean Corpuscular HGB Conc 31.1 GM/DL (32-36); Mean Corpuscular Hemoglobin 24 PG (27-34); Mean Platelet Volume 9.9 FL (9.6-12.0); Monocytes # 0.6 10*3/uL (0.11-0.8); Monocytes % 7.4 % (1.7-12.7); Neutrophils # 4.6 10*3/uL (1.4-7.4); Neutrophils % 56.4 % (38.7-73.9); Platelet Count 211 T/CUMM (130-400); Red Blood Count 4.13 MC/CUMM (3.8-5.5); Red Cell Distribution Width 18.8 % (9.3-17.3); White Blood Count 8.1 T/CUMM (4-12)
[2018-10-03] MEDS: INSULIN REGULAR 100 UNIT/ML SUBCUT SCH ×4 (07:49→21:30)
[2018-10-03] MEDS: INSULIN NPH 100 UNIT/ML SUBCUT SCH ×2 (08:46→16:05)
[2018-10-03] MEDS: CARVEDILOL 25 MG TABLET PO SCH ×2 (08:47→21:29)
[2018-10-03] MEDS: CINACALCET 30 MG TABLET PO SCH (08:47)
[2018-10-03] MEDS: CALCITRIOL 0.25 MCG CAPSULE PO SCH (08:47)
[2018-10-03] MEDS: LOSARTAN 50 MG TABLET PO SCH (08:47)
[2018-10-03] MEDS: amLODIPine 10 MG TABLET PO SCH (08:47)
[2018-10-03] MEDS ORDERED: IRBESARTAN 150 MG TABLET PO SCH (09:00)
[2018-10-03] MEDS: ENOXAPARIN 30 MG/0.3 ML SYRINGE SUBCUT SCH ×2 (21:29→21:33)
[2018-10-04 05:48] LABS: Basophils % 0.1 % (0.0-0.8); Eosinophils # 0.2 10*3/uL (0.0-0.87); Hematocrit 27.7 VOL% (35.7-47.0); Hemoglobin 8.7 GM/DL (12.0-16.0); Immature Granulocytes % 0.3 %; Immature Granulocytes Absolute 0.03 #; Lymphocytes # 2.2 10*3/uL (1.4-4.0); Lymphocytes % 25.7 % (21.3-54.2); Mean Corpuscular HGB Conc 31.4 GM/DL (32-36); Mean Corpuscular Hemoglobin 24 PG (27-34); Mean Corpuscular Volume 75.3 FL (87-102); Mean Platelet Volume 10.3 FL (9.6-12.0); Monocytes # 0.6 10*3/uL (0.11-0.8); Monocytes % 7.1 % (1.7-12.7); Neutrophils # 5.6 10*3/uL (1.4-7.4); Neutrophils % 64.8 % (38.7-73.9); Platelet Count 221 T/CUMM (130-400); Red Blood Count 3.68 MC/CUMM (3.8-5.5); Red Cell Distribution Width 18.5 % (9.3-17.3); White Blood Count 8.6 T/CUMM (4-12)
[2018-10-04 06:05] LABS: Calcium 6.9 MG/DL (8.5-10.1); Osmolality,Calculated 277.1 MOS/KG (273-304); Potassium 3.3 MMOL/L (3.5-5.1)
[2018-10-04] MEDS: INSULIN NPH 100 UNIT/ML SUBCUT SCH ×2 (07:49→17:40)
[2018-10-04] MEDS: INSULIN REGULAR 100 UNIT/ML SUBCUT SCH ×4 (07:49→21:29)
[2018-10-04] MEDS: CARVEDILOL 25 MG TABLET PO SCH ×2 (09:08→20:32)
[2018-10-04] MEDS: CALCITRIOL 0.25 MCG CAPSULE PO SCH (09:08)
[2018-10-04] MEDS: amLODIPine 10 MG TABLET PO SCH (09:08)
[2018-10-04] MEDS: LOSARTAN 50 MG TABLET PO SCH (09:08)
[2018-10-04] MEDS: CINACALCET 30 MG TABLET PO SCH (09:08)
[2018-10-04] MEDS ORDERED: MAGNESIUM SULF RIDER 4 GM in PREMIX 1 EACH IV PRN (17:07)
[2018-10-04] MEDS ORDERED: ACETAMINOPHEN 325 MG TABLET PO PRN (17:58)
[2018-10-04] MEDS: MORPHINE 4 MG/1 ML VIAL IV PRN (18:07)
[2018-10-04] MEDS: MAGNESIUM SULF RIDER 2 GM in PREMIX 1 EACH IV PRN ×2 (18:08→19:48)
[2018-10-04] MEDS: POTASSIUM CHLORIDE 20 MEQ TABLET PO PRN ×2 (19:46→21:30)
[2018-10-04] MEDS: ONDANSETRON 4 MG/2 ML VIAL IV PRN (19:53)
[2018-10-04] MEDS: ENOXAPARIN 30 MG/0.3 ML SYRINGE SUBCUT SCH (23:11)
[2018-10-05] MEDS: MORPHINE 4 MG/1 ML VIAL IV PRN (00:09)
[2018-10-05] MEDS: ONDANSETRON 4 MG/2 ML VIAL IV PRN (00:11)
[2018-10-05] MEDS: POTASSIUM CHLORIDE 20 MEQ TABLET PO PRN (00:14)
[2018-10-05] MEDS: ceFAZolin 1,000 MG VIAL INTRAPERIT SCH (01:20)
[2018-10-05] MEDS ORDERED: ceFAZolin 1,000 MG VIAL INTRAPERIT SCH (09:00)
[2018-10-05] MEDS: INSULIN REGULAR 100 UNIT/ML SUBCUT SCH ×4 (10:16→21:26)
[2018-10-05] MEDS: CARVEDILOL 25 MG TABLET PO SCH ×2 (10:18→20:56)
[2018-10-05] MEDS: LOSARTAN 50 MG TABLET PO SCH (10:18)
[2018-10-05] MEDS: amLODIPine 10 MG TABLET PO SCH (10:19)
[2018-10-05] MEDS: CALCITRIOL 0.25 MCG CAPSULE PO SCH (10:19)
[2018-10-05] MEDS: ENOXAPARIN 30 MG/0.3 ML SYRINGE SUBCUT SCH (21:27)
[2018-10-06] MEDS: ceFAZolin 1,000 MG VIAL INTRAPERIT SCH (00:17)
[2018-10-06 05:30] LABS: Basophils % 0.2 % (0.0-0.8); Eosinophils # 0.1 10*3/uL (0.0-0.87); Eosinophils % 1.2 % (0.00-10.9); Hematocrit 28.7 VOL% (35.7-47.0); Hemoglobin 9.1 GM/DL (12.0-16.0); Immature Granulocytes % 0.5 %; Immature Granulocytes Absolute 0.05 #; Lymphocytes # 1.5 10*3/uL (1.4-4.0); Lymphocytes % 15.3 % (21.3-54.2); Mean Corpuscular HGB Conc 31.7 GM/DL (32-36); Mean Corpuscular Hemoglobin 24 PG (27-34); Mean Corpuscular Volume 75.1 FL (87-102); Mean Platelet Volume 10.2 FL (9.6-12.0); Monocytes # 0.8 10*3/uL (0.11-0.8); Monocytes % 7.6 % (1.7-12.7); Neutrophils # 7.4 10*3/uL (1.4-7.4); Neutrophils % 75.2 % (38.7-73.9); Platelet Count 273 T/CUMM (130-400); Red Blood Count 3.82 MC/CUMM (3.8-5.5); Red Cell Distribution Width 18.5 % (9.3-17.3); White Blood Count 9.9 T/CUMM (4-12)
[2018-10-06] MEDS: MORPHINE 4 MG/1 ML VIAL IV PRN ×2 (05:38→12:20)
[2018-10-06 06:06] LABS: Calcium 7.3 MG/DL (8.5-10.1); Osmolality,Calculated 265.9 MOS/KG (273-304); Potassium 3.8 MMOL/L (3.5-5.1)
[2018-10-06] MEDS ORDERED: MEROPENEM 1,000 MG in SODIUM CHLORIDE 0.9% 100 ML IV SCH (07:00)
[2018-10-06] MEDS: INSULIN REGULAR 100 UNIT/ML SUBCUT SCH ×4 (07:46→20:08)
[2018-10-06] MEDS: ALBUTEROL/IPRATROPIUM 3 ML NEB RESP TX SCH ×3 (07:54→20:05)
[2018-10-06] MEDS ORDERED: LEVOFLOXACIN INJ 750 MG in PREMIX 1 EACH IV ONE (08:00)
[2018-10-06] MEDS: CALCITRIOL 0.25 MCG CAPSULE PO SCH (08:00)
[2018-10-06] MEDS: LOSARTAN 50 MG TABLET PO SCH (08:01)
[2018-10-06] MEDS: CARVEDILOL 25 MG TABLET PO SCH ×2 (08:01→21:19)
[2018-10-06] MEDS: amLODIPine 10 MG TABLET PO SCH (08:01)
[2018-10-06] MEDS: ONDANSETRON 4 MG/2 ML VIAL IV PRN ×2 (08:54→12:19)
[2018-10-06] MEDS: HYDROmorphone 2 MG/1 ML VIAL IV PRN ×2 (18:26→23:40)
[2018-10-06] MEDS: ENOXAPARIN 30 MG/0.3 ML SYRINGE SUBCUT SCH (21:19)
[2018-10-07] MEDS: ceFAZolin 1,000 MG VIAL INTRAPERIT SCH (00:29)
[2018-10-07] MEDS: ALBUTEROL/IPRATROPIUM 3 ML NEB RESP TX SCH ×4 (00:42→19:13)
[2018-10-07] MEDS: INSULIN REGULAR 100 UNIT/ML SUBCUT SCH ×4 (07:47→21:06)
[2018-10-07] MEDS: HYDROmorphone 2 MG/1 ML VIAL IV PRN ×4 (07:54→23:43)
[2018-10-07] MEDS: LOSARTAN 50 MG TABLET PO SCH (08:36)
[2018-10-07] MEDS: CALCITRIOL 0.25 MCG CAPSULE PO SCH (08:37)
[2018-10-07] MEDS: CARVEDILOL 25 MG TABLET PO SCH ×2 (08:37→20:26)
[2018-10-07] MEDS: amLODIPine 10 MG TABLET PO SCH (08:37)
[2018-10-07] MEDS: ENOXAPARIN 30 MG/0.3 ML SYRINGE SUBCUT SCH (20:44)
[2018-10-08] MEDS: VANCOMYCIN 1,000 MG VIAL INTRAPERIT SCH (00:40)
[2018-10-08] MEDS: ALBUTEROL/IPRATROPIUM 3 ML NEB RESP TX SCH ×4 (01:07→19:51)
[2018-10-08] MEDS: HYDROmorphone 2 MG/1 ML VIAL IV PRN ×4 (07:33→21:29)
[2018-10-08] MEDS: INSULIN REGULAR 100 UNIT/ML SUBCUT SCH ×4 (07:34→20:31)
[2018-10-08] MEDS: amLODIPine 10 MG TABLET PO SCH (08:56)
[2018-10-08] MEDS: CALCITRIOL 0.25 MCG CAPSULE PO SCH (08:56)
[2018-10-08] MEDS: ONDANSETRON 4 MG/2 ML VIAL IV PRN ×3 (08:56→23:55)
[2018-10-08] MEDS: LEVOFLOXACIN INJ 500 MG in PREMIX 1 EACH IV SCH (08:57)
[2018-10-08] MEDS: LOSARTAN 50 MG TABLET PO SCH (08:57)
[2018-10-08] MEDS: CARVEDILOL 25 MG TABLET PO SCH ×2 (08:57→21:29)
[2018-10-08] MEDS: POLYETHYLENE GLYCOL POWDER 17 GM PACK PO SCH (15:44)
[2018-10-08] MEDS: DOCUSATE SODIUM 100 MG CAPSULE PO SCH (15:44)
[2018-10-08] MEDS: ENOXAPARIN 30 MG/0.3 ML SYRINGE SUBCUT SCH (21:30)
[2018-10-09] MEDS: ALBUTEROL/IPRATROPIUM 3 ML NEB RESP TX SCH ×4 (00:16→19:39)
[2018-10-09] MEDS: VANCOMYCIN 1,000 MG VIAL INTRAPERIT SCH (01:02)
[2018-10-09] MEDS: INSULIN REGULAR 100 UNIT/ML SUBCUT SCH ×4 (07:48→21:34)
[2018-10-09] MEDS: CALCITRIOL 0.25 MCG CAPSULE PO SCH (08:00)
[2018-10-09] MEDS: DOCUSATE SODIUM 100 MG CAPSULE PO SCH ×2 (08:01→21:34)
[2018-10-09] MEDS: amLODIPine 10 MG TABLET PO SCH (08:01)
[2018-10-09] MEDS: LOSARTAN 50 MG TABLET PO SCH (08:01)
[2018-10-09] MEDS: POLYETHYLENE GLYCOL POWDER 17 GM PACK PO SCH (08:01)
[2018-10-09] MEDS: CARVEDILOL 25 MG TABLET PO SCH ×2 (08:01→21:34)
[2018-10-09] MEDS: HYDROmorphone 2 MG/1 ML VIAL IV PRN ×3 (08:05→21:43)
[2018-10-09] MEDS: ENOXAPARIN 30 MG/0.3 ML SYRINGE SUBCUT SCH (21:35)
[2018-10-10] MEDS: VANCOMYCIN 1,000 MG VIAL INTRAPERIT SCH (00:12)
[2018-10-10] MEDS: ALBUTEROL/IPRATROPIUM 3 ML NEB RESP TX SCH ×2 (00:34→07:35)
[2018-10-10 07:36] VITALS: BP 134/68
[2018-10-10] MEDS: INSULIN REGULAR 100 UNIT/ML SUBCUT SCH (08:26)
[2018-10-10] MEDS: LOSARTAN 50 MG TABLET PO SCH (08:27)
[2018-10-10] MEDS: CARVEDILOL 25 MG TABLET PO SCH (08:28)
[2018-10-10] MEDS: CALCITRIOL 0.25 MCG CAPSULE PO SCH (08:28)
[2018-10-10] MEDS: LEVOFLOXACIN INJ 500 MG in PREMIX 1 EACH IV SCH (08:28)
[2018-10-10] MEDS: amLODIPine 10 MG TABLET PO SCH (08:28)
[2018-10-10] MEDS: POLYETHYLENE GLYCOL POWDER 17 GM PACK PO SCH (08:28)
[2018-10-10] MEDS: DOCUSATE SODIUM 100 MG CAPSULE PO SCH (08:28)
[2018-10-10] MEDS: HYDROmorphone 2 MG/1 ML VIAL IV PRN (08:35)
== END 2018-10-10 11:03 | disposition home or self-care (01) | DRG 466 ==
LOC: N.ED 12:52 → SUATTDRO 15:59 → N.EDINP 15:59 → N.5E 19:32
PROVIDERS: ADMIT Internal Medicine Cardiovascular Disease; ATTEND Internal Medicine

== ENCOUNTER 2018-12-25 12:28 | Inpatient (IN) ==
[2018-12-25] MEDS ORDERED: LEVOFLOXACIN INJ 500 MG in PREMIX 1 EACH IV STA (15:59)
[2018-12-25] MEDS ORDERED: ALBUTEROL 2.5 MG/3 ML NEB RESP TX STA (16:01)
[2018-12-25 16:03] LABS: Basophils # 0.1 10*3/uL (0.0-0.2); Basophils % 0.4 % (0.0-0.8); Eosinophils # 0.2 10*3/uL (0.0-0.87); Eosinophils % 1.3 % (0.00-10.9); Hematocrit 34.1 VOL% (35.7-47.0); Hemoglobin 10.3 GM/DL (12.0-16.0); Immature Granulocytes % 0.6 %; Immature Granulocytes Absolute 0.07 #; Lymphocytes # 2.5 10*3/uL (1.4-4.0); Lymphocytes % 19.7 % (21.3-54.2); Mean Corpuscular HGB Conc 30.2 GM/DL (32-36); Mean Corpuscular Volume 76.8 FL (87-102); Monocytes % 4.9 % (1.7-12.7); Neutrophils % 73.1 % (38.7-73.9); Platelet Count 188 T/CUMM (130-400); Red Blood Count 4.44 MC/CUMM (3.8-5.5); Red Cell Distribution Width 18.3 % (9.3-17.3); White Blood Count 12.7 T/CUMM (4-12)
[2018-12-25 16:11] LABS: INR 0.9; PT Patient Result 10.3 SECS
[2018-12-25 16:20] LABS: Albumin 2.2 G/DL (3.4-5.0); Bilirubin,Total 0.5 MG/DL (0.2-1.0); Calcium 8.7 MG/DL (8.5-10.1); Osmolality,Calculated 290.4 MOS/KG (273-304); Total Protein 7.4 G/DL (6.4-8.3)
[2018-12-25] MEDS ORDERED: ONDANSETRON 4 MG/2 ML VIAL IV PRN (16:38)
[2018-12-25] MEDS ORDERED: ALBUTEROL 2.5 MG/3 ML NEB RESP TX PRN (16:38)
[2018-12-25] MEDS ORDERED: PROMETHAZINE 25 MG/1 ML VIAL IM PRN (16:38)
[2018-12-25] MEDS ORDERED: ACETAMINOPHEN 325 MG TABLET PO PRN (16:38)
[2018-12-25] MEDS: FUROSEMIDE 100 MG/10 ML VIAL IV SCH (16:56)
[2018-12-25] MEDS ORDERED: PANTOPRAZOLE 40 MG TABLET PO SCH (17:00)
[2018-12-25] MEDS ORDERED: DEXTROSE 50% 25 GM/50 ML VIAL IV PRN (17:44)
[2018-12-25] MEDS ORDERED: GLUCAGON 1 MG VIAL IM PRN (17:44)
[2018-12-25] MEDS: CALCITRIOL 0.5 MCG CAPSULE PO SCH (18:15)
[2018-12-25] MEDS: MAGNESIUM OXIDE 400 MG TABLET PO SCH (18:15)
[2018-12-25] MEDS: amLODIPine 10 MG TABLET PO SCH (18:15)
[2018-12-25] MEDS: LOSARTAN 50 MG TABLET PO SCH (18:15)
[2018-12-25] MEDS: PANTOPRAZOLE 40 MG TABLET PO SCH (18:15)
[2018-12-25] MEDS: FERROUS SULFATE 325 MG TABLET PO SCH (18:15)
[2018-12-25] MEDS: CINACALCET 30 MG TABLET PO SCH (18:16)
[2018-12-25] MEDS: LABETALOL 100 MG/20 ML VIAL IV PRN (19:12)
[2018-12-25] MEDS: ALBUTEROL/IPRATROPIUM 3 ML NEB RESP TX SCH (19:30)
[2018-12-25] MEDS: INSULIN LISPRO 100 UNIT/ML SUBCUT SCH (21:49)
[2018-12-25] MEDS: cloNIDine 0.1 MG TABLET PO SCH (21:49)
[2018-12-25] MEDS: CARVEDILOL 25 MG TABLET PO SCH (21:49)
[2018-12-26] MEDS: ALBUTEROL/IPRATROPIUM 3 ML NEB RESP TX SCH ×4 (01:23→19:59)
[2018-12-26 04:23] LABS: Basophils # 0.1 10*3/uL (0.0-0.2); Basophils % 0.4 % (0.0-0.8); Eosinophils % 0.2 % (0.00-10.9); Hematocrit 27.2 VOL% (35.7-47.0); Hemoglobin 8.4 GM/DL (12.0-16.0); Immature Granulocytes % 0.7 %; Immature Granulocytes Absolute 0.09 #; Lymphocytes # 1.7 10*3/uL (1.4-4.0); Lymphocytes % 12.9 % (21.3-54.2); Mean Corpuscular HGB Conc 30.9 GM/DL (32-36); Mean Corpuscular Volume 77.3 FL (87-102); Neutrophils % 81.8 % (38.7-73.9); Platelet Count 148 T/CUMM (130-400); Red Blood Count 3.52 MC/CUMM (3.8-5.5); Red Cell Distribution Width 17.8 % (9.3-17.3); White Blood Count 12.9 T/CUMM (4-12)
[2018-12-26 04:45] LABS: Alanine Aminotransferase < 9 U/L (13-56); Albumin 1.8 G/DL (3.4-5.0); Alkaline Phosphatase 83 U/L (45-117); Aspartate Amino Transferase 19 U/L (0-37); Blood Urea Nitrogen 51 MG/DL (7-18); Calcium 8.2 MG/DL (8.5-10.1); Glucose 156 MG/DL (74-106); HDL Cholesterol 59 MG/DL (40-60); Osmolality,Calculated 297.3 MOS/KG (273-304); Risk Ratio 2.93; Triglycerides 57 MG/DL (2-150); VLDL CHOLESTEROL 11.4 MG/DL
[2018-12-26 04:47] LABS: Hypochromasia 1+
[2018-12-26 04:48] LABS: Microcytosis 1+; Platelet Estimate Adequate; Target Cells Slight
[2018-12-26] MEDS: LABETALOL 100 MG/20 ML VIAL IV PRN (06:36)
[2018-12-26] MEDS: MAGNESIUM OXIDE 400 MG TABLET PO SCH (09:16)
[2018-12-26] MEDS: FUROSEMIDE 100 MG/10 ML VIAL IV SCH (09:16)
[2018-12-26] MEDS: LOSARTAN 50 MG TABLET PO SCH (09:16)
[2018-12-26] MEDS: FERROUS SULFATE 325 MG TABLET PO SCH ×3 (09:17→16:40)
[2018-12-26] MEDS: INSULIN LISPRO 100 UNIT/ML SUBCUT SCH ×2 (09:17→11:39)
[2018-12-26] MEDS: CALCITRIOL 0.5 MCG CAPSULE PO SCH (09:17)
[2018-12-26] MEDS: CARVEDILOL 25 MG TABLET PO SCH ×2 (09:17→16:40)
[2018-12-26] MEDS: PANTOPRAZOLE 40 MG TABLET PO SCH (09:17)
[2018-12-26] MEDS: amLODIPine 10 MG TABLET PO SCH (09:17)
[2018-12-26] MEDS: cloNIDine 0.1 MG TABLET PO SCH ×2 (09:20→21:45)
[2018-12-26] MEDS: CINACALCET 30 MG TABLET PO SCH (16:40)
[2018-12-27] MEDS: ALBUTEROL/IPRATROPIUM 3 ML NEB RESP TX SCH ×4 (01:58→19:18)
[2018-12-27 04:29] LABS: Basophils % 0.3 % (0.0-0.8); Eosinophils # 0.5 10*3/uL (0.0-0.87); Eosinophils % 5.1 % (0.00-10.9); Hemoglobin 7.5 GM/DL (12.0-16.0); Immature Granulocytes % 0.3 %; Immature Granulocytes Absolute 0.03 #; Lymphocytes # 2.4 10*3/uL (1.4-4.0); Lymphocytes % 27.7 % (21.3-54.2); Mean Corpuscular Volume 77.6 FL (87-102); Monocytes % 4.2 % (1.7-12.7); Neutrophils % 62.4 % (38.7-73.9); Platelet Count 158 T/CUMM (130-400); Red Blood Count 3.22 MC/CUMM (3.8-5.5); Red Cell Distribution Width 17.9 % (9.3-17.3); White Blood Count 8.8 T/CUMM (4-12)
[2018-12-27 04:48] LABS: Calcium 8.2 MG/DL (8.5-10.1); Osmolality,Calculated 290.5 MOS/KG (273-304)
[2018-12-27 08:37] LABS: Risk Ratio 2.49; VLDL CHOLESTEROL 11.4 MG/DL
[2018-12-27] MEDS: CARVEDILOL 25 MG TABLET PO SCH ×2 (09:30→17:50)
[2018-12-27] MEDS: FERROUS SULFATE 325 MG TABLET PO SCH ×3 (09:31→17:50)
[2018-12-27] MEDS: CALCITRIOL 0.5 MCG CAPSULE PO SCH (09:31)
[2018-12-27] MEDS: LOSARTAN 50 MG TABLET PO SCH (09:32)
[2018-12-27] MEDS: amLODIPine 10 MG TABLET PO SCH (09:33)
[2018-12-27] MEDS: PANTOPRAZOLE 40 MG TABLET PO SCH (09:33)
[2018-12-27] MEDS: cloNIDine 0.1 MG TABLET PO SCH (09:34)
[2018-12-27] MEDS: MAGNESIUM OXIDE 400 MG TABLET PO SCH (09:35)
[2018-12-27] MEDS ORDERED: EPOETIN ALFA 10,000 UNIT/1 ML VIAL SUBCUT ONE (12:47)
[2018-12-27] MEDS: CINACALCET 30 MG TABLET PO SCH (17:54)
[2018-12-27] MEDS ORDERED: LEVOFLOXACIN INJ 250 MG in PREMIX 1 EACH IV SCH (18:00)
[2018-12-27 20:06] VITALS: BP 107/83
== END 2018-12-27 20:19 | disposition home or self-care (01) | DRG 133 ==
LOC: N.ED 12:28 → N.EDINP 16:38 → SUATTDRO 16:38 → N.CC 17:24
PROVIDERS: ADMIT Internal Medicine; ATTEND Internal Medicine

== ENCOUNTER 2019-03-02 08:58 | Inpatient (IN) ==
[2019-03-02] MEDS ORDERED: PIPERACILLIN/TAZOBACTAM 3,375 MG in SODIUM CHLORIDE 0.9% 100 ML IV STA (09:17)
[2019-03-02] MEDS ORDERED: ONDANSETRON 4 MG/2 ML VIAL IV STA ×2 (09:17→13:15)
[2019-03-02] MEDS ORDERED: HYDROmorphone 2 MG/1 ML VIAL IV STA ×2 (09:17→13:15)
[2019-03-02] MEDS ORDERED: HYDROmorphone 2 MG/1 ML VIAL ONE (09:20)
[2019-03-02] MEDS ORDERED: ONDANSETRON 4 MG/2 ML VIAL ONE (09:20)
[2019-03-02 10:12] LABS: Basophils % 0.2 % (0.0-0.8); Eosinophils # 0.3 10*3/uL (0.0-0.87); Eosinophils % 1.9 % (0.00-10.9); Hematocrit 43.6 VOL% (35.7-47.0); Hemoglobin 13.4 GM/DL (12.0-16.0); Immature Granulocytes % 0.5 %; Immature Granulocytes Absolute 0.07 #; Lymphocytes # 1.1 10*3/uL (1.4-4.0); Lymphocytes % 8.4 % (21.3-54.2); Mean Corpuscular HGB Conc 30.7 GM/DL (32-36); Mean Corpuscular Volume 76.5 FL (87-102); Monocytes % 3.9 % (1.7-12.7); Neutrophils % 85.1 % (38.7-73.9); Platelet Count 203 T/CUMM (130-400); Red Cell Distribution Width 21.6 % (9.3-17.3); White Blood Count 12.9 T/CUMM (4-12)
[2019-03-02 10:31] LABS: Albumin 2.3 G/DL (3.4-5.0); Bilirubin,Total 0.4 MG/DL (0.2-1.0); Calcium 8.6 MG/DL (8.5-10.1); Total Protein 6.9 G/DL (6.4-8.3)
[2019-03-02 11:08] LABS: Hypochromasia 1+; Platelet Estimate Adequate
[2019-03-02] MEDS ORDERED: VANCOMYCIN 5,000 MG VIAL IV ONE (13:50)
[2019-03-02] MEDS ORDERED: DEXTROSE 50% 25 GM/50 ML VIAL IV PRN (13:54)
[2019-03-02] MEDS ORDERED: ONDANSETRON 4 MG/2 ML VIAL IV PRN (13:54)
[2019-03-02] MEDS ORDERED: GLUCAGON 1 MG VIAL IM PRN (13:54)
[2019-03-02] MEDS ORDERED: ACETAMINOPHEN 325 MG TABLET PO PRN (13:54)
[2019-03-02] MEDS ORDERED: VANCOMYCIN 1,000 MG VIAL INTRAPERIT ONE ×2 (14:02→23:00)
[2019-03-02] MEDS ORDERED: NICOTINE 14 MG/24 HR PATCH TRANSDERM PRN (14:21)
[2019-03-02] MEDS: cloNIDine 0.1 MG TABLET PO SCH ×2 (15:56→21:11)
[2019-03-02] MEDS: amLODIPine 10 MG TABLET PO SCH (15:56)
[2019-03-02] MEDS: LOSARTAN 50 MG TABLET PO SCH (15:56)
[2019-03-02] MEDS ORDERED: CINACALCET 30 MG TABLET PO SCH (17:00)
[2019-03-02] MEDS ORDERED: Sucroferric Oxyhydroxide [Velphoro] 1,000 MG PO SCH (17:00)
[2019-03-02] MEDS: SEVELAMER CARBONATE 800 MG TABLET PO SCH (17:36)
[2019-03-02] MEDS: INSULIN LISPRO 100 UNIT/ML SUBCUT SCH ×2 (17:46→20:25)
[2019-03-02] MEDS: HYDROmorphone 2 MG/1 ML VIAL IV PRN ×2 (18:17→23:58)
[2019-03-02] MEDS ORDERED: INSULIN GLARGINE 100 UNIT/ML SUBCUT SCH (21:00)
[2019-03-02] MEDS: CARVEDILOL 25 MG TABLET PO SCH (21:11)
[2019-03-03 06:36] LABS: Basophils % 0.3 % (0.0-0.8); Eosinophils # 0.2 10*3/uL (0.0-0.87); Hematocrit 43.7 VOL% (35.7-47.0); Hemoglobin 13.4 GM/DL (12.0-16.0); Immature Granulocytes % 0.4 %; Immature Granulocytes Absolute 0.04 #; Lymphocytes # 2.4 10*3/uL (1.4-4.0); Lymphocytes % 22.7 % (21.3-54.2); Mean Corpuscular HGB Conc 30.7 GM/DL (32-36); Mean Corpuscular Volume 76.9 FL (87-102); Monocytes % 8.4 % (1.7-12.7); Neutrophils % 66.2 % (38.7-73.9); Platelet Count 206 T/CUMM (130-400); Red Blood Count 5.68 MC/CUMM (3.8-5.5); Red Cell Distribution Width 21.4 % (9.3-17.3); White Blood Count 10.7 T/CUMM (4-12)
[2019-03-03 06:54] LABS: Hypochromasia 1+; Platelet Estimate Adequate
[2019-03-03 07:02] LABS: Calcium 8.4 MG/DL (8.5-10.1); Osmolality,Calculated 276.1 MOS/KG (273-304)
[2019-03-03] MEDS: INSULIN LISPRO 100 UNIT/ML SUBCUT SCH ×2 (07:51→13:10)
[2019-03-03] MEDS: HYDROmorphone 2 MG/1 ML VIAL IV PRN (08:29)
[2019-03-03] MEDS: SEVELAMER CARBONATE 800 MG TABLET PO SCH ×2 (08:32→13:10)
[2019-03-03] MEDS: CARVEDILOL 25 MG TABLET PO SCH (08:33)
[2019-03-03] MEDS: LOSARTAN 50 MG TABLET PO SCH (08:33)
[2019-03-03] MEDS: amLODIPine 10 MG TABLET PO SCH (08:33)
[2019-03-03] MEDS: cloNIDine 0.1 MG TABLET PO SCH (08:33)
[2019-03-03] MEDS ORDERED: MAGNESIUM OXIDE 400 MG TABLET PO SCH (09:00)
[2019-03-03] MEDS ORDERED: diphenhydrAMINE CAP 25 MG CAPSULE PO PRN (09:46)
[2019-03-03] MEDS ORDERED: diphenhydrAMINE CAP 50 MG CAPSULE PO ONE (09:46)
[2019-03-03 11:37] VITALS: BP 138/83
== END 2019-03-03 14:30 | disposition home or self-care (01) | DRG 466 ==
LOC: EDUNIT# → EDBD → N.ED 08:58 → N.EDINP 13:13 → INTOOBSV 13:13 → OBSVTOIN 13:13 → N.5E 14:53
PROVIDERS: ADMIT Internal Medicine; ATTEND Internal Medicine

== ENCOUNTER 2019-04-10 17:47 | Inpatient (IN) ==
[2019-04-10] MEDS ORDERED: ONDANSETRON 4 MG/2 ML VIAL IV STA (18:10)
[2019-04-10] MEDS ORDERED: MORPHINE 4 MG/1 ML VIAL IV STA (18:10)
[2019-04-10 18:19] LABS: Basophils % 0.5 % (0.0-0.8); Eosinophils # 0.1 10*3/uL (0.0-0.87); Eosinophils % 1.2 % (0.00-10.9); Hematocrit 53.5 VOL% (35.7-47.0); Hemoglobin 17.2 GM/DL (12.0-16.0); Immature Granulocytes % 0.3 %; Immature Granulocytes Absolute 0.02 #; Lymphocytes # 1.5 10*3/uL (1.4-4.0); Mean Corpuscular HGB Conc 32.1 GM/DL (32-36); Mean Corpuscular Volume 73.8 FL (87-102); Monocytes % 5.9 % (1.7-12.7); Neutrophils % 66.1 % (38.7-73.9); Platelet Count 211 T/CUMM (130-400); Red Blood Count 7.25 MC/CUMM (3.8-5.5); Red Cell Distribution Width 20.8 % (9.3-17.3); White Blood Count 5.7 T/CUMM (4-12)
[2019-04-10] MEDS ORDERED: hydrALAZINE 20 MG/1 ML VIAL IV STA ×2 (18:29→20:18)
[2019-04-10 18:39] LABS: Alanine Aminotransferase 16 U/L (13-56); Albumin 2.7 G/DL (3.4-5.0); Alkaline Phosphatase 140 U/L (45-117); Amylase 64 U/L (25-115); Aspartate Amino Transferase 24 U/L (0-37); Blood Urea Nitrogen 32 MG/DL (7-18); Calcium 9.3 MG/DL (8.5-10.1); Glucose 175 MG/DL (74-106); Osmolality,Calculated 278.2 MOS/KG (273-304); Total Protein 8.6 G/DL (6.4-8.3)
[2019-04-10 18:57] LABS: Apearance,Urine Slightly Hazy (Clear); Glucose,Urine (UA) 150 mg/dL (Negative); Ketones,Urine Negative (Negative); Nitrite,Urine Negative (Negative); Protein,Urine >=500 MG/DL; Urine Color Light Yellow (Yellow); Urine Specific Gravity 1.005 (1.001-1.035)
[2019-04-10 18:58] LABS: Bacteria,Urine Moderate /HPF (Few); Bilirubin,Urine Negative (Negative); Blood, Urine Negative (Negative); RBC,Urine 0-3 /HPF (0-4); Urine Urobilinogen 0.2 EU/DL (0.2-1.0)
[2019-04-10] MEDS ORDERED: HYDROmorphone 2 MG/1 ML VIAL IV STA (19:35)
[2019-04-10] MEDS ORDERED: hydrALAZINE 20 MG/1 ML VIAL IV ONE (22:10)
[2019-04-10] MEDS: HEPARIN 5,000 UNIT/1 ML VIAL SUBCUT SCH (23:22)
[2019-04-10] MEDS: ONDANSETRON 4 MG/2 ML VIAL IV PRN (23:31)
[2019-04-11] MEDS ORDERED: DEXTROSE 50% 25 GM/50 ML VIAL IV PRN (04:49)
[2019-04-11] MEDS ORDERED: GLUCAGON 1 MG VIAL IM PRN (04:49)
[2019-04-11 05:31] LABS: Basophils % 0.5 % (0.0-0.8); Eosinophils % 0.5 % (0.00-10.9); Hematocrit 41.8 VOL% (35.7-47.0); Hemoglobin 13.1 GM/DL (12.0-16.0); Immature Granulocytes % 0.5 %; Immature Granulocytes Absolute 0.03 #; Lymphocytes # 2.2 10*3/uL (1.4-4.0); Mean Corpuscular HGB Conc 31.3 GM/DL (32-36); Mean Corpuscular Volume 74.9 FL (87-102); Monocytes % 7.6 % (1.7-12.7); Neutrophils % 57.9 % (38.7-73.9); Platelet Count 179 T/CUMM (130-400); Red Blood Count 5.58 MC/CUMM (3.8-5.5); Red Cell Distribution Width 19.8 % (9.3-17.3); White Blood Count 6.6 T/CUMM (4-12)
[2019-04-11 06:04] LABS: Hypochromasia 1+; Platelet Estimate Adequate
[2019-04-11 06:05] LABS: Albumin 1.9 G/DL (3.4-5.0); Bilirubin,Total 0.4 MG/DL (0.2-1.0); Calcium 8.1 MG/DL (8.5-10.1); Osmolality,Calculated 283.5 MOS/KG (273-304); Total Protein 5.8 G/DL (6.4-8.3)
[2019-04-11] MEDS ORDERED: Sucroferric Oxyhydroxide [Velphoro] 1,000 MG PO SCH (08:00)
[2019-04-11] MEDS: INSULIN LISPRO 100 UNIT/ML SUBCUT SCH ×4 (08:14→21:18)
[2019-04-11] MEDS: LOSARTAN 50 MG TABLET PO SCH (08:53)
[2019-04-11] MEDS: cloNIDine 0.1 MG TABLET PO SCH ×2 (08:54→21:18)
[2019-04-11] MEDS: PANTOPRAZOLE 40 MG TABLET PO SCH (08:54)
[2019-04-11] MEDS: CARVEDILOL 25 MG TABLET PO SCH ×2 (08:54→21:18)
[2019-04-11] MEDS: amLODIPine 10 MG TABLET PO SCH (08:54)
[2019-04-11] MEDS: ONDANSETRON 4 MG/2 ML VIAL IV PRN ×2 (09:18→21:07)
[2019-04-11] MEDS: HEPARIN 5,000 UNIT/1 ML VIAL SUBCUT SCH ×3 (09:36→21:18)
[2019-04-11] MEDS ORDERED: CINACALCET 30 MG TABLET PO SCH (17:00)
[2019-04-12] MEDS: CARVEDILOL 25 MG TABLET PO SCH (08:48)
[2019-04-12] MEDS: cloNIDine 0.1 MG TABLET PO SCH (08:48)
[2019-04-12] MEDS: PANTOPRAZOLE 40 MG TABLET PO SCH (08:48)
[2019-04-12] MEDS: amLODIPine 10 MG TABLET PO SCH (08:48)
[2019-04-12] MEDS: LOSARTAN 50 MG TABLET PO SCH (08:48)
[2019-04-12] MEDS: INSULIN LISPRO 100 UNIT/ML SUBCUT SCH ×2 (09:02→12:09)
[2019-04-12 09:18] VITALS: BP 194/101
[2019-04-12] MEDS: HEPARIN 5,000 UNIT/1 ML VIAL SUBCUT SCH (10:11)
== END 2019-04-12 13:00 | disposition home or self-care (01) | DRG 249 ==
LOC: EDBD → EDUNIT# → N.ED 17:47 → N.EDINP 21:33 → N.5E 22:05
PROVIDERS: ADMIT Internal Medicine; ATTEND Internal Medicine

== ENCOUNTER 2019-05-10 18:01 | Inpatient (IN) ==
[2019-05-10] MEDS ORDERED: FUROSEMIDE 100 MG/10 ML VIAL IV STA (18:50)
[2019-05-10] MEDS ORDERED: hydrALAZINE 20 MG/1 ML VIAL IV STA ×2 (18:50→20:33)
[2019-05-10] MEDS ORDERED: methylPREDNISolone SOD SUC 125 MG/2 ML VIAL IV STA (18:50)
[2019-05-10] MEDS ORDERED: ONDANSETRON 4 MG/2 ML VIAL IV STA (18:50)
[2019-05-10] MEDS ORDERED: MORPHINE 4 MG/1 ML VIAL ONE (19:06)
[2019-05-10] MEDS ORDERED: MORPHINE 4 MG/1 ML VIAL IV STA (19:13)
[2019-05-10 19:27] LABS: Basophils % 0.4 % (0.0-0.8); Eosinophils # 0.1 10*3/uL (0.0-0.87); Eosinophils % 0.6 % (0.00-10.9); Hematocrit 39.7 VOL% (35.7-47.0); Hemoglobin 12.9 GM/DL (12.0-16.0); Immature Granulocytes % 0.7 %; Immature Granulocytes Absolute 0.07 #; Mean Corpuscular HGB Conc 32.5 GM/DL (32-36); Mean Corpuscular Volume 70.3 FL (87-102); Monocytes % 5.2 % (1.7-12.7); Neutrophils % 73.1 % (38.7-73.9); Platelet Count 253 T/CUMM (130-400); Red Blood Count 5.65 MC/CUMM (3.8-5.5); Red Cell Distribution Width 21.5 % (9.3-17.3)
[2019-05-10 19:29] LABS: Alanine Aminotransferase < 9 U/L (13-56); Albumin 2.6 G/DL (3.4-5.0); Alkaline Phosphatase 132 U/L (45-117); Aspartate Amino Transferase 29 U/L (0-37); Blood Urea Nitrogen 58 MG/DL (7-18); Calcium 10.1 MG/DL (8.5-10.1); Estimated Glom Filtration Rate 2 ML/MIN; Glucose 67 MG/DL (74-106); Osmolality,Calculated 283.1 MOS/KG (273-304); Total Protein 8.2 G/DL (6.4-8.3)
[2019-05-10 19:48] LABS: INR 0.9; PT Patient Result 9.9 SECS (9.6-12.2)
[2019-05-10] MEDS ORDERED: ONDANSETRON 4 MG/2 ML VIAL IV PRN (21:00)
[2019-05-10] MEDS ORDERED: PROMETHAZINE 25 MG/1 ML VIAL IM PRN (21:00)
[2019-05-10] MEDS ORDERED: diphenhydrAMINE CAP 25 MG CAPSULE PO PRN (21:00)
[2019-05-10] MEDS ORDERED: hydrALAZINE 20 MG/1 ML VIAL IV PRN (21:00)
[2019-05-10] MEDS ORDERED: ACETAMINOPHEN 325 MG TABLET PO PRN (21:00)
[2019-05-11] MEDS: cloNIDine 0.1 MG TABLET PO SCH ×3 (00:03→23:16)
[2019-05-11 05:19] LABS: Basophils % 0.2 % (0.0-0.8); Hematocrit 32.4 VOL% (35.7-47.0); Hemoglobin 10.5 GM/DL (12.0-16.0); Immature Granulocytes % 0.5 %; Immature Granulocytes Absolute 0.03 #; Lymphocytes # 0.7 10*3/uL (1.4-4.0); Lymphocytes % 11.9 % (21.3-54.2); Mean Corpuscular HGB Conc 32.4 GM/DL (32-36); Mean Corpuscular Volume 70.4 FL (87-102); Neutrophils % 86.4 % (38.7-73.9); Platelet Count 188 T/CUMM (130-400); Red Cell Distribution Width 21.1 % (9.3-17.3); White Blood Count 6.2 T/CUMM (4-12)
[2019-05-11 05:39] LABS: Anisocytosis 1+; Hypochromasia 1+; Microcytosis 1+; Ovalocytes Slight
[2019-05-11 05:40] LABS: Platelet Estimate Adequate
[2019-05-11 05:55] LABS: Alanine Aminotransferase < 6 U/L (13-56); Albumin 1.9 G/DL (3.4-5.0); Alkaline Phosphatase 105 U/L (45-117); Aspartate Amino Transferase 19 U/L (0-37); Blood Urea Nitrogen 62 MG/DL (7-18); Calcium 9.3 MG/DL (8.5-10.1); Estimated Glom Filtration Rate 3 ML/MIN; Glucose 196 MG/DL (74-106); Osmolality,Calculated 292.1 MOS/KG (273-304); Total Protein 6.6 G/DL (6.4-8.3)
[2019-05-11] MEDS: amLODIPine 10 MG TABLET PO SCH (09:19)
[2019-05-11] MEDS: carvediloL 25 MG TABLET PO SCH ×2 (09:19→16:37)
[2019-05-11] MEDS: LOSARTAN 50 MG TABLET PO SCH (09:19)
[2019-05-11] MEDS: MORPHINE 4 MG/1 ML VIAL IV PRN ×2 (10:12)
[2019-05-11 15:13] LABS: Apearance,Urine Slightly Hazy (Clear); Bacteria,Urine Occasional /HPF (Few); Bilirubin,Urine Negative (Negative); Blood, Urine Small mg/dL (Negative); Glucose,Urine (UA) 150 mg/dL (Negative); Ketones,Urine Negative (Negative); Mucus,Urine Occasional /LPF (Occasional); Nitrite,Urine Negative (Negative); Protein,Urine >=500 MG/DL; RBC,Urine 1 /HPF (0-4); Squamous Epithelial Cell,Urine Occasional /HPF (0-10); Urine Color Yellow (Yellow); Urine Specific Gravity 1.011 (1.001-1.035); Urine Urobilinogen < 2.0 EU/DL (0.2-1.0); WBC,Urine 14 /HPF (0-6)
[2019-05-12] MEDS: MORPHINE 4 MG/1 ML VIAL IV PRN ×3 (00:59→18:54)
[2019-05-12] MEDS: LOSARTAN 50 MG TABLET PO SCH (09:11)
[2019-05-12] MEDS: carvediloL 25 MG TABLET PO SCH ×2 (09:11→17:05)
[2019-05-12] MEDS: amLODIPine 10 MG TABLET PO SCH (09:12)
[2019-05-12] MEDS: cloNIDine 0.1 MG TABLET PO SCH ×2 (09:13→21:35)
[2019-05-13] MEDS: MORPHINE 4 MG/1 ML VIAL IV PRN ×4 (00:05→23:35)
[2019-05-13 06:07] LABS: Eosinophils # 0.1 10*3/uL (0.0-0.87); Eosinophils % 0.9 % (0.00-10.9); Hematocrit 26.9 VOL% (35.7-47.0); Hemoglobin 8.6 GM/DL (12.0-16.0); Immature Granulocytes % 1.1 %; Lymphocytes # 2.6 10*3/uL (1.4-4.0); Lymphocytes % 28.7 % (21.3-54.2); Mean Corpuscular Volume 71.2 FL (87-102); Monocytes % 7.1 % (1.7-12.7); Neutrophils % 62.2 % (38.7-73.9); Platelet Count 185 T/CUMM (130-400); Red Blood Count 3.78 MC/CUMM (3.8-5.5); Red Cell Distribution Width 21.7 % (9.3-17.3); White Blood Count 9.1 T/CUMM (4-12)
[2019-05-13 06:24] LABS: Hypochromasia Slight; Platelet Estimate Adequate; Polychromasia Few
[2019-05-13 06:36] LABS: Albumin 1.7 G/DL (3.4-5.0); Calcium 8.2 MG/DL (8.5-10.1); Osmolality,Calculated 292.2 MOS/KG (273-304)
[2019-05-13] MEDS: amLODIPine 10 MG TABLET PO SCH (09:13)
[2019-05-13] MEDS: LOSARTAN 50 MG TABLET PO SCH (09:13)
[2019-05-13] MEDS: carvediloL 25 MG TABLET PO SCH ×2 (09:14→17:33)
[2019-05-13] MEDS: cloNIDine 0.1 MG TABLET PO SCH ×2 (09:14→21:19)
[2019-05-13] MEDS ORDERED: DEXTROSE 50% 25 GM/50 ML VIAL IV PRN (10:02)
[2019-05-13] MEDS ORDERED: GLUCAGON 1 MG VIAL IM PRN (10:02)
[2019-05-13] MEDS: INSULIN LISPRO 100 UNIT/ML SUBCUT SCH ×3 (12:46→21:20)
[2019-05-14 03:47] LABS: Basophils % 0.4 % (0.0-0.8); Eosinophils # 0.2 10*3/uL (0.0-0.87); Eosinophils % 2.6 % (0.00-10.9); Hematocrit 28.5 VOL% (35.7-47.0); Immature Granulocytes % 0.6 %; Immature Granulocytes Absolute 0.05 #; Lymphocytes # 2.5 10*3/uL (1.4-4.0); Lymphocytes % 29.8 % (21.3-54.2); Mean Corpuscular HGB Conc 31.6 GM/DL (32-36); Mean Corpuscular Volume 72.3 FL (87-102); Mean Platelet Volume 9.9 FL (9.6-12.0); Monocytes % 7.8 % (1.7-12.7); Neutrophils % 58.8 % (38.7-73.9); Platelet Count 198 T/CUMM (130-400); Red Blood Count 3.94 MC/CUMM (3.8-5.5); Red Cell Distribution Width 21.3 % (9.3-17.3); White Blood Count 8.4 T/CUMM (4-12)
[2019-05-14 04:14] LABS: Albumin 1.7 G/DL (3.4-5.0); Calcium 8.1 MG/DL (8.5-10.1); Osmolality,Calculated 286.5 MOS/KG (273-304)
[2019-05-14 04:18] LABS: % Iron Saturation 37.1 % (18-50); Ferritin 1133.4 ng/ml (8-252)
[2019-05-14 04:27] LABS: Folate 1.5 NG/ML (5.4-24.0)
[2019-05-14] MEDS: MORPHINE 4 MG/1 ML VIAL IV PRN ×2 (06:00→17:36)
[2019-05-14] MEDS: LOSARTAN 50 MG TABLET PO SCH (08:47)
[2019-05-14] MEDS: amLODIPine 10 MG TABLET PO SCH (08:48)
[2019-05-14] MEDS: INSULIN LISPRO 100 UNIT/ML SUBCUT SCH ×4 (08:48→21:19)
[2019-05-14] MEDS: cloNIDine 0.1 MG TABLET PO SCH ×2 (08:48→21:19)
[2019-05-14] MEDS: FOLIC ACID 1 MG TABLET PO SCH (08:48)
[2019-05-14] MEDS: carvediloL 25 MG TABLET PO SCH ×2 (08:48→16:45)
[2019-05-14 09:23] LABS: Barbiturates Screen,Urine Negative (Negative); Benzodiazepines Screen,Urine Positive (Negative); Cannabinoid Screen,Urine Negative (Negative); Opiate Screen,Urine Positive (Negative); Phencyclidine Screen,Urine Negative (Negative)
[2019-05-15] MEDS: MORPHINE 4 MG/1 ML VIAL IV PRN (02:21)
[2019-05-15 04:28] LABS: Basophils % 0.2 % (0.0-0.8); Eosinophils # 0.4 10*3/uL (0.0-0.87); Hematocrit 27.9 VOL% (35.7-47.0); Hemoglobin 8.8 GM/DL (12.0-16.0); Immature Granulocytes % 0.8 %; Immature Granulocytes Absolute 0.07 #; Lymphocytes % 22.1 % (21.3-54.2); Mean Corpuscular HGB Conc 31.5 GM/DL (32-36); Mean Corpuscular Volume 72.1 FL (87-102); Mean Platelet Volume 9.5 FL (9.6-12.0); Neutrophils % 64.9 % (38.7-73.9); Platelet Count 221 T/CUMM (130-400); Red Blood Count 3.87 MC/CUMM (3.8-5.5); Red Cell Distribution Width 21.6 % (9.3-17.3); White Blood Count 8.9 T/CUMM (4-12)
[2019-05-15 04:40] LABS: Albumin 1.7 G/DL (3.4-5.0); Calcium 8.6 MG/DL (8.5-10.1); Osmolality,Calculated 280.4 MOS/KG (273-304)
[2019-05-15] MEDS: INSULIN LISPRO 100 UNIT/ML SUBCUT SCH ×2 (08:37→12:41)
[2019-05-15] MEDS: carvediloL 25 MG TABLET PO SCH (09:15)
[2019-05-15] MEDS: FOLIC ACID 1 MG TABLET PO SCH (09:15)
[2019-05-15] MEDS: LOSARTAN 50 MG TABLET PO SCH (09:15)
[2019-05-15] MEDS: amLODIPine 10 MG TABLET PO SCH (09:15)
[2019-05-15] MEDS: cloNIDine 0.1 MG TABLET PO SCH (09:16)
[2019-05-15] MEDS ORDERED: MELOXICAM 7.5 MG TABLET PO SCH (12:30)
[2019-05-15 15:57] VITALS: BP 120/73
== END 2019-05-15 17:38 | disposition home or self-care (01) | DRG 194 ==
LOC: EDBD → EDUNIT# → N.ED 18:01 → SUATTDRO 21:00 → N.EDINP 21:00 → N.TELEN 21:31
PROVIDERS: ADMIT Internal Medicine; ATTEND Internal Medicine

== ENCOUNTER 2019-06-02 14:20 | Inpatient (IN) ==
[2019-06-02] MEDS ORDERED: MORPHINE 4 MG/1 ML VIAL IV STA ×2 (14:38→17:24)
[2019-06-02] MEDS ORDERED: ONDANSETRON ODT 4 MG TABLET PO STA (14:38)
[2019-06-02 15:54] LABS: Basophils % 0.4 % (0.0-0.8); Eosinophils # 0.2 10*3/uL (0.0-0.87); Eosinophils % 2.2 % (0.00-10.9); Hematocrit 25.1 VOL% (35.7-47.0); Hemoglobin 7.8 GM/DL (12.0-16.0); Immature Granulocytes % 0.4 %; Immature Granulocytes Absolute 0.03 #; Lymphocytes # 2.6 10*3/uL (1.4-4.0); Lymphocytes % 35.6 % (21.3-54.2); Mean Corpuscular HGB Conc 31.1 GM/DL (32-36); Mean Corpuscular Volume 74.5 FL (87-102); Mean Platelet Volume 8.1 FL (9.6-12.0); Monocytes % 5.6 % (1.7-12.7); Neutrophils % 55.8 % (38.7-73.9); Platelet Count 287 T/CUMM (130-400); Red Blood Count 3.37 MC/CUMM (3.8-5.5); Red Cell Distribution Width 21.9 % (9.3-17.3); White Blood Count 7.2 T/CUMM (4-12)
[2019-06-02] MEDS: ALBUTEROL 2.5 MG/3 ML NEB RESP TX SCH ×2 (16:00→16:09)
[2019-06-02] MEDS ORDERED: ONDANSETRON 4 MG/2 ML VIAL ONE (16:00)
[2019-06-02 16:10] LABS: PT Patient Result 10.5 SECS (9.6-12.2)
[2019-06-02 16:19] LABS: ABG Base Excess 10.1 MMOL/L (-2.5-2.5); ABG HCO3 33.8 MMOL/L (20-26); ABG Oxygen Saturation 99.4 % (95-100); ABG PCO2 26.5 MM HG (35-48); ABG TCO2 29.3 MMOL/L (23-27); Allen Test Positive
[2019-06-02 16:23] LABS: ABG PH 7.676 (7.35-7.45)
[2019-06-02 16:45] LABS: Calcium 9.4 MG/DL (8.5-10.1); Osmolality,Calculated 276.4 MOS/KG (273-304)
[2019-06-02] MEDS ORDERED: ONDANSETRON 4 MG/2 ML VIAL IV STA (17:02)
[2019-06-02] MEDS ORDERED: FUROSEMIDE 40 MG/4 ML VIAL ONE (18:33)
[2019-06-02] MEDS ORDERED: FUROSEMIDE 40 MG/4 ML VIAL IV STA (18:35)
[2019-06-02] MEDS ORDERED: ENOXAPARIN 60 MG/0.6 ML SYRINGE SUBCUT STA (18:35)
[2019-06-02] MEDS ORDERED: POTASSIUM CHLORIDE 20 MEQ TABLET PO STA (18:44)
[2019-06-02] MEDS ORDERED: SODIUM CHLORIDE 0.9% 1,000 ML IV PRN (18:50)
[2019-06-02] MEDS ORDERED: MAGNESIUM SULF RIDER 2 GM in PREMIX 1 EACH IV PRN (20:39)
[2019-06-02] MEDS ORDERED: ACETAMINOPHEN 325 MG TABLET PO PRN (20:39)
[2019-06-02] MEDS ORDERED: ALBUTEROL 2.5 MG/3 ML NEB RESP TX PRN (20:39)
[2019-06-02] MEDS ORDERED: MAGNESIUM SULF RIDER 4 GM in PREMIX 1 EACH IV PRN (20:39)
[2019-06-02] MEDS ORDERED: GLUCAGON 1 MG VIAL IM PRN (20:39)
[2019-06-02] MEDS: ALBUTEROL/IPRATROPIUM 3 ML NEB RESP TX SCH (20:58)
[2019-06-02] MEDS: cefTRIAXone 1,000 MG in SYRINGE 1 EACH IV SCH (22:02)
[2019-06-02] MEDS: CALCITRIOL 0.5 MCG CAPSULE PO SCH (22:02)
[2019-06-02] MEDS: cloNIDine 0.1 MG TABLET PO SCH (22:03)
[2019-06-02] MEDS: AZITHROMYCIN INJ 500 MG in SODIUM CHLORIDE 0.9% 250 ML IV SCH (22:06)
[2019-06-02] MEDS: carvediloL 25 MG TABLET PO SCH (22:06)
[2019-06-02] MEDS: INSULIN REGULAR 100 UNIT/ML SUBCUT SCH (22:06)
[2019-06-03] MEDS: ALBUTEROL/IPRATROPIUM 3 ML NEB RESP TX SCH ×4 (00:21→19:24)
[2019-06-03 05:53] LABS: Basophils % 0.6 % (0.0-0.8); Eosinophils # 0.3 10*3/uL (0.0-0.87); Eosinophils % 5.2 % (0.00-10.9); Hematocrit 18.8 VOL% (35.7-47.0); Immature Granulocytes % 0.4 %; Immature Granulocytes Absolute 0.02 #; Lymphocytes # 1.9 10*3/uL (1.4-4.0); Lymphocytes % 36.2 % (21.3-54.2); Mean Corpuscular HGB Conc 30.3 GM/DL (32-36); Mean Corpuscular Volume 76.4 FL (87-102); Monocytes % 7.9 % (1.7-12.7); Neutrophils % 49.7 % (38.7-73.9); Platelet Count 222 T/CUMM (130-400); Red Blood Count 2.46 MC/CUMM (3.8-5.5); Red Cell Distribution Width 22.4 % (9.3-17.3); White Blood Count 5.2 T/CUMM (4-12)
[2019-06-03 05:55] LABS: Hemoglobin 5.7 GM/DL (12.0-16.0)
[2019-06-03 06:18] LABS: Alanine Aminotransferase < 9 U/L (13-56); Albumin 1.7 G/DL (3.4-5.0); Alkaline Phosphatase 101 U/L (45-117); Aspartate Amino Transferase 12 U/L (0-37); Bilirubin,Total < 0.39 MG/DL (0.2-1.0); Blood Urea Nitrogen 17 MG/DL (7-18); Calcium 8.1 MG/DL (8.5-10.1); Estimated Glom Filtration Rate 9 ML/MIN; Glucose 185 MG/DL (74-106); Osmolality,Calculated 283.5 MOS/KG (273-304); Total Protein 5.6 G/DL (6.4-8.3)
[2019-06-03] MEDS ORDERED: SODIUM CHLORIDE 0.9% 1,000 ML IV PRN (08:32)
[2019-06-03] MEDS ORDERED: EPOETIN ALFA 10,000 UNIT/1 ML VIAL IV PRN (09:09)
[2019-06-03] MEDS: INSULIN REGULAR 100 UNIT/ML SUBCUT SCH ×4 (09:27→22:32)
[2019-06-03] MEDS: CALCITRIOL 0.5 MCG CAPSULE PO SCH ×2 (09:27→22:30)
[2019-06-03] MEDS: amLODIPine 10 MG TABLET PO SCH (09:28)
[2019-06-03] MEDS: cloNIDine 0.1 MG TABLET PO SCH ×2 (09:28→22:30)
[2019-06-03] MEDS: LOSARTAN 50 MG TABLET PO SCH ×2 (09:28→09:32)
[2019-06-03] MEDS: metOLazone 2.5 MG TABLET PO SCH (09:28)
[2019-06-03] MEDS: PANTOPRAZOLE 40 MG TABLET PO SCH (09:28)
[2019-06-03] MEDS: carvediloL 25 MG TABLET PO SCH ×2 (09:28→17:43)
[2019-06-03 10:51] LABS: Hepatitis B Surface Ag Quant < 0.10 Index; Hepatitis B Surface Ag Result Negative (Negative); Hepatitis C Virus Ab Quant < 0.02 Index; Hepatitis C Virus Ab Result Negative (Negative)
[2019-06-03] MEDS ORDERED: HEPARIN 10,000 UNIT/10 ML VIAL IV SCH (11:30)
[2019-06-03] MEDS: CINACALCET 30 MG TABLET PO SCH (17:43)
[2019-06-03] MEDS: cefTRIAXone 1,000 MG in SYRINGE 1 EACH IV SCH (22:30)
[2019-06-03] MEDS: ENOXAPARIN 30 MG/0.3 ML SYRINGE SUBCUT SCH (22:31)
[2019-06-03] MEDS: AZITHROMYCIN INJ 500 MG in SODIUM CHLORIDE 0.9% 250 ML IV SCH (22:31)
[2019-06-04] MEDS: ALBUTEROL/IPRATROPIUM 3 ML NEB RESP TX SCH ×4 (01:45→19:40)
[2019-06-04 05:21] LABS: Basophils % 0.3 % (0.0-0.8); Eosinophils # 0.4 10*3/uL (0.0-0.87); Hematocrit 26.6 VOL% (35.7-47.0); Hemoglobin 8.6 GM/DL (12.0-16.0); Immature Granulocytes % 0.3 %; Immature Granulocytes Absolute 0.02 #; Lymphocytes # 2.7 10*3/uL (1.4-4.0); Lymphocytes % 37.1 % (21.3-54.2); Mean Corpuscular HGB Conc 32.3 GM/DL (32-36); Mean Corpuscular Volume 78.7 FL (87-102); Mean Platelet Volume 9.5 FL (9.6-12.0); Monocytes % 7.1 % (1.7-12.7); Neutrophils % 50.2 % (38.7-73.9); Platelet Count 211 T/CUMM (130-400); Red Blood Count 3.38 MC/CUMM (3.8-5.5); White Blood Count 7.2 T/CUMM (4-12)
[2019-06-04 05:42] LABS: Alanine Aminotransferase < 6 U/L (13-56); Albumin 1.9 G/DL (3.4-5.0); Alkaline Phosphatase 100 U/L (45-117); Aspartate Amino Transferase 11 U/L (0-37); Blood Urea Nitrogen 10 MG/DL (7-18); Calcium 8.4 MG/DL (8.5-10.1); Estimated Glom Filtration Rate 12 ML/MIN; Glucose 77 MG/DL (74-106); Total Protein 6.1 G/DL (6.4-8.3)
[2019-06-04 05:51] LABS: Free T4 (Free Thyroxine) 1.38 NG/DL (0.76-1.46)
[2019-06-04] MEDS: metOLazone 2.5 MG TABLET PO SCH (08:30)
[2019-06-04] MEDS: amLODIPine 10 MG TABLET PO SCH (08:31)
[2019-06-04] MEDS: PANTOPRAZOLE 40 MG TABLET PO SCH (08:31)
[2019-06-04] MEDS: LOSARTAN 50 MG TABLET PO SCH (08:31)
[2019-06-04] MEDS: carvediloL 25 MG TABLET PO SCH ×2 (08:31→16:39)
[2019-06-04] MEDS: CALCITRIOL 0.5 MCG CAPSULE PO SCH ×2 (08:31→20:39)
[2019-06-04] MEDS: cloNIDine 0.1 MG TABLET PO SCH ×2 (08:32→20:39)
[2019-06-04] MEDS: INSULIN REGULAR 100 UNIT/ML SUBCUT SCH ×4 (09:34→21:04)
[2019-06-04] MEDS: CINACALCET 30 MG TABLET PO SCH (16:39)
[2019-06-04] MEDS: ENOXAPARIN 30 MG/0.3 ML SYRINGE SUBCUT SCH (20:35)
[2019-06-04] MEDS: cefTRIAXone 1,000 MG in SYRINGE 1 EACH IV SCH (20:35)
[2019-06-04] MEDS: DEXTROSE 10% 250 ML BAG IV PRN (22:49)
[2019-06-05] MEDS: DEXTROSE 10% 250 ML BAG IV PRN (01:12)
[2019-06-05 04:40] LABS: Basophils % 0.4 % (0.0-0.8); Eosinophils # 0.3 10*3/uL (0.0-0.87); Eosinophils % 4.2 % (0.00-10.9); Hematocrit 27.1 VOL% (35.7-47.0); Hemoglobin 8.8 GM/DL (12.0-16.0); Immature Granulocytes % 0.4 %; Immature Granulocytes Absolute 0.03 #; Lymphocytes # 1.3 10*3/uL (1.4-4.0); Lymphocytes % 16.5 % (21.3-54.2); Mean Corpuscular HGB Conc 32.5 GM/DL (32-36); Mean Corpuscular Volume 79.2 FL (87-102); Mean Platelet Volume 8.9 FL (9.6-12.0); Monocytes % 7.4 % (1.7-12.7); Neutrophils % 71.1 % (38.7-73.9); Platelet Count 189 T/CUMM (130-400); Red Blood Count 3.42 MC/CUMM (3.8-5.5); Red Cell Distribution Width 20.3 % (9.3-17.3); White Blood Count 8.1 T/CUMM (4-12)
[2019-06-05 04:59] LABS: Alanine Aminotransferase < 6 U/L (13-56); Alkaline Phosphatase 109 U/L (45-117); Aspartate Amino Transferase 14 U/L (0-37); Bilirubin,Total < 0.39 MG/DL (0.2-1.0); Blood Urea Nitrogen 18 MG/DL (7-18); Calcium 8.6 MG/DL (8.5-10.1); Estimated Glom Filtration Rate 8 ML/MIN; Glucose 74 MG/DL (74-106); Osmolality,Calculated 277.5 MOS/KG (273-304); Total Protein 6.4 G/DL (6.4-8.3)
[2019-06-05] MEDS: ALBUTEROL/IPRATROPIUM 3 ML NEB RESP TX SCH ×4 (08:05→19:43)
[2019-06-05] MEDS: LOSARTAN 50 MG TABLET PO SCH (08:42)
[2019-06-05] MEDS: cloNIDine 0.1 MG TABLET PO SCH ×2 (08:42→20:34)
[2019-06-05] MEDS: AZITHROMYCIN INJ 500 MG in SODIUM CHLORIDE 0.9% 250 ML IV SCH ×2 (08:43)
[2019-06-05] MEDS: carvediloL 25 MG TABLET PO SCH ×2 (08:43→17:33)
[2019-06-05] MEDS: PANTOPRAZOLE 40 MG TABLET PO SCH (08:43)
[2019-06-05] MEDS: metOLazone 2.5 MG TABLET PO SCH (08:43)
[2019-06-05] MEDS: amLODIPine 10 MG TABLET PO SCH (08:43)
[2019-06-05] MEDS: CALCITRIOL 0.5 MCG CAPSULE PO SCH ×2 (08:43→20:34)
[2019-06-05] MEDS: INSULIN REGULAR 100 UNIT/ML SUBCUT SCH ×4 (08:54→20:48)
[2019-06-05] MEDS: ONDANSETRON 4 MG/2 ML VIAL IV PRN ×2 (15:55→20:34)
[2019-06-05] MEDS: CINACALCET 30 MG TABLET PO SCH (17:33)
[2019-06-05] MEDS: ENOXAPARIN 30 MG/0.3 ML SYRINGE SUBCUT SCH (20:33)
[2019-06-05] MEDS: cefTRIAXone 1,000 MG in SYRINGE 1 EACH IV SCH (20:34)
[2019-06-06] MEDS: ALBUTEROL/IPRATROPIUM 3 ML NEB RESP TX SCH ×4 (00:42→19:38)
[2019-06-06 05:22] LABS: Basophils % 0.3 % (0.0-0.8); Eosinophils # 0.1 10*3/uL (0.0-0.87); Eosinophils % 0.8 % (0.00-10.9); Hematocrit 27.1 VOL% (35.7-47.0); Hemoglobin 8.8 GM/DL (12.0-16.0); Immature Granulocytes % 0.8 %; Immature Granulocytes Absolute 0.11 #; Lymphocytes # 2.3 10*3/uL (1.4-4.0); Lymphocytes % 16.3 % (21.3-54.2); Mean Corpuscular HGB Conc 32.5 GM/DL (32-36); Mean Corpuscular Volume 79.7 FL (87-102); Mean Platelet Volume 9.2 FL (9.6-12.0); Monocytes % 5.8 % (1.7-12.7); Platelet Count 186 T/CUMM (130-400); Red Cell Distribution Width 20.7 % (9.3-17.3); White Blood Count 13.8 T/CUMM (4-12)
[2019-06-06 05:54] LABS: Calcium 8.3 MG/DL (8.5-10.1)
[2019-06-06] MEDS: INSULIN REGULAR 100 UNIT/ML SUBCUT SCH ×4 (10:15→20:46)
[2019-06-06] MEDS: CALCITRIOL 0.5 MCG CAPSULE PO SCH ×2 (10:49→20:45)
[2019-06-06] MEDS: LOSARTAN 50 MG TABLET PO SCH (10:50)
[2019-06-06] MEDS: amLODIPine 10 MG TABLET PO SCH (10:50)
[2019-06-06] MEDS: cloNIDine 0.1 MG TABLET PO SCH ×2 (10:50→20:45)
[2019-06-06] MEDS: carvediloL 25 MG TABLET PO SCH ×2 (10:50→17:12)
[2019-06-06] MEDS: metOLazone 2.5 MG TABLET PO SCH (10:50)
[2019-06-06] MEDS: PANTOPRAZOLE 40 MG TABLET PO SCH (10:51)
[2019-06-06] MEDS ORDERED: VANCOMYCIN INJ 1,000 MG in SODIUM CHLORIDE 0.9% 250 ML IV ONE (11:10)
[2019-06-06] MEDS: AZITHROMYCIN INJ 500 MG in SODIUM CHLORIDE 0.9% 250 ML IV SCH (15:17)
[2019-06-06 15:47] LABS: Apearance,Urine CLOUDY (Clear); Bilirubin,Urine Negative (Negative); Blood, Urine Small mg/dL (Negative); Glucose,Urine (UA) 50 mg/dL (Negative); Ketones,Urine Negative (Negative); Mucus,Urine Occasional /LPF (Occasional); Nitrite,Urine Negative (Negative); Protein,Urine >=500 MG/DL; RBC,Urine 3 /HPF (0-4); Squamous Epithelial Cell,Urine Many /HPF (0-10); Urine Color Yellow (Yellow); Urine Specific Gravity 1.007 (1.001-1.035); Urine Urobilinogen < 2.0 EU/DL (0.2-1.0); WBC,Urine 43 /HPF (0-6)
[2019-06-06] MEDS: CINACALCET 30 MG TABLET PO SCH (17:11)
[2019-06-06] MEDS: ENOXAPARIN 30 MG/0.3 ML SYRINGE SUBCUT SCH (20:45)
[2019-06-06] MEDS: cefTRIAXone 2,000 MG in SYRINGE 1 EACH IV SCH (20:46)
[2019-06-07] MEDS: ALBUTEROL/IPRATROPIUM 3 ML NEB RESP TX SCH ×4 (00:18→20:05)
[2019-06-07 05:06] LABS: Basophils % 0.4 % (0.0-0.8); Eosinophils # 0.3 10*3/uL (0.0-0.87); Eosinophils % 2.5 % (0.00-10.9); Hematocrit 25.4 VOL% (35.7-47.0); Hemoglobin 8.1 GM/DL (12.0-16.0); Immature Granulocytes % 0.6 %; Immature Granulocytes Absolute 0.06 #; Lymphocytes # 2.8 10*3/uL (1.4-4.0); Lymphocytes % 27.6 % (21.3-54.2); Mean Corpuscular HGB Conc 31.9 GM/DL (32-36); Mean Corpuscular Volume 79.9 FL (87-102); Mean Platelet Volume 10.4 FL (9.6-12.0); Monocytes % 7.4 % (1.7-12.7); Neutrophils % 61.5 % (38.7-73.9); Platelet Count 173 T/CUMM (130-400); Red Blood Count 3.18 MC/CUMM (3.8-5.5); Red Cell Distribution Width 20.5 % (9.3-17.3); White Blood Count 10.1 T/CUMM (4-12)
[2019-06-07 05:30] LABS: Calcium 8.2 MG/DL (8.5-10.1); Osmolality,Calculated 274.8 MOS/KG (273-304)
[2019-06-07] MEDS: INSULIN REGULAR 100 UNIT/ML SUBCUT SCH ×4 (08:40→21:35)
[2019-06-07] MEDS: CALCITRIOL 0.5 MCG CAPSULE PO SCH ×2 (09:30→20:52)
[2019-06-07] MEDS: metOLazone 2.5 MG TABLET PO SCH (09:30)
[2019-06-07] MEDS: AZITHROMYCIN 250 MG TABLET PO SCH (09:30)
[2019-06-07] MEDS: carvediloL 25 MG TABLET PO SCH ×2 (09:31→17:02)
[2019-06-07] MEDS: LOSARTAN 50 MG TABLET PO SCH (09:31)
[2019-06-07] MEDS: PANTOPRAZOLE 40 MG TABLET PO SCH (09:32)
[2019-06-07] MEDS: cloNIDine 0.1 MG TABLET PO SCH ×2 (09:32→20:52)
[2019-06-07] MEDS: amLODIPine 10 MG TABLET PO SCH (09:32)
[2019-06-07] MEDS: guaiFENesin/CODEINE 5 ML LIQUID PO PRN ×2 (10:46→18:52)
[2019-06-07] MEDS: CINACALCET 30 MG TABLET PO SCH (17:01)
[2019-06-07] MEDS: ENOXAPARIN 30 MG/0.3 ML SYRINGE SUBCUT SCH (20:52)
[2019-06-07] MEDS: cefTRIAXone 2,000 MG in SYRINGE 1 EACH IV SCH (20:56)
[2019-06-08] MEDS: ALBUTEROL/IPRATROPIUM 3 ML NEB RESP TX SCH ×4 (01:15→20:18)
[2019-06-08 03:56] LABS: Basophils % 0.3 % (0.0-0.8); Eosinophils # 0.5 10*3/uL (0.0-0.87); Eosinophils % 5.1 % (0.00-10.9); Hematocrit 25.2 VOL% (35.7-47.0); Immature Granulocytes % 0.5 %; Immature Granulocytes Absolute 0.05 #; Lymphocytes # 2.4 10*3/uL (1.4-4.0); Lymphocytes % 26.3 % (21.3-54.2); Mean Corpuscular HGB Conc 31.7 GM/DL (32-36); Mean Corpuscular Volume 80.5 FL (87-102); Mean Platelet Volume 10.1 FL (9.6-12.0); Monocytes % 5.8 % (1.7-12.7); Platelet Count 191 T/CUMM (130-400); Red Blood Count 3.13 MC/CUMM (3.8-5.5); Red Cell Distribution Width 20.3 % (9.3-17.3); White Blood Count 9.2 T/CUMM (4-12)
[2019-06-08 04:17] LABS: Calcium 8.2 MG/DL (8.5-10.1); Osmolality,Calculated 273.1 MOS/KG (273-304)
[2019-06-08] MEDS: amLODIPine 10 MG TABLET PO SCH (09:06)
[2019-06-08] MEDS: PANTOPRAZOLE 40 MG TABLET PO SCH (09:06)
[2019-06-08] MEDS: metOLazone 2.5 MG TABLET PO SCH (09:06)
[2019-06-08] MEDS: AZITHROMYCIN 250 MG TABLET PO SCH (09:06)
[2019-06-08] MEDS: cloNIDine 0.1 MG TABLET PO SCH ×2 (09:06→20:57)
[2019-06-08] MEDS: carvediloL 25 MG TABLET PO SCH ×2 (09:06→17:18)
[2019-06-08] MEDS: LOSARTAN 50 MG TABLET PO SCH (09:06)
[2019-06-08] MEDS: CALCITRIOL 0.5 MCG CAPSULE PO SCH ×2 (09:06→20:57)
[2019-06-08] MEDS: INSULIN REGULAR 100 UNIT/ML SUBCUT SCH ×3 (09:25→16:54)
[2019-06-08] MEDS: CINACALCET 30 MG TABLET PO SCH (17:17)
[2019-06-08] MEDS: guaiFENesin/CODEINE 5 ML LIQUID PO PRN (17:23)
[2019-06-08] MEDS: ENOXAPARIN 30 MG/0.3 ML SYRINGE SUBCUT SCH (20:57)
[2019-06-08] MEDS: cefTRIAXone 2,000 MG in SYRINGE 1 EACH IV SCH (21:47)
[2019-06-09] MEDS: INSULIN REGULAR 100 UNIT/ML SUBCUT SCH ×5 (00:02→21:08)
[2019-06-09] MEDS: ALBUTEROL/IPRATROPIUM 3 ML NEB RESP TX SCH ×4 (01:48→19:33)
[2019-06-09 05:45] LABS: Basophils % 0.5 % (0.0-0.8); Eosinophils # 0.4 10*3/uL (0.0-0.87); Eosinophils % 6.7 % (0.00-10.9); Hemoglobin 7.7 GM/DL (12.0-16.0); Immature Granulocytes % 0.5 %; Immature Granulocytes Absolute 0.03 #; Lymphocytes # 1.7 10*3/uL (1.4-4.0); Lymphocytes % 30.4 % (21.3-54.2); Mean Corpuscular HGB Conc 32.1 GM/DL (32-36); Mean Corpuscular Volume 80.5 FL (87-102); Mean Platelet Volume 10.7 FL (9.6-12.0); Monocytes % 10.3 % (1.7-12.7); Neutrophils % 51.6 % (38.7-73.9); Platelet Count 208 T/CUMM (130-400); Red Blood Count 2.98 MC/CUMM (3.8-5.5); White Blood Count 5.6 T/CUMM (4-12)
[2019-06-09 05:58] LABS: Calcium 8.4 MG/DL (8.5-10.1); Osmolality,Calculated 282.4 MOS/KG (273-304)
[2019-06-09] MEDS: AZITHROMYCIN 250 MG TABLET PO SCH (08:47)
[2019-06-09] MEDS: cloNIDine 0.1 MG TABLET PO SCH ×2 (08:47→20:52)
[2019-06-09] MEDS: LOSARTAN 50 MG TABLET PO SCH (08:47)
[2019-06-09] MEDS: CALCITRIOL 0.5 MCG CAPSULE PO SCH ×2 (08:47→20:52)
[2019-06-09] MEDS: metOLazone 2.5 MG TABLET PO SCH (08:47)
[2019-06-09] MEDS: amLODIPine 10 MG TABLET PO SCH (08:47)
[2019-06-09] MEDS: carvediloL 25 MG TABLET PO SCH ×2 (08:48→17:08)
[2019-06-09] MEDS: PANTOPRAZOLE 40 MG TABLET PO SCH (08:48)
[2019-06-09] MEDS: guaiFENesin/CODEINE 5 ML LIQUID PO PRN (12:44)
[2019-06-09] MEDS: CINACALCET 30 MG TABLET PO SCH (17:08)
[2019-06-09] MEDS: cefTRIAXone 2,000 MG in SYRINGE 1 EACH IV SCH (20:53)
[2019-06-09] MEDS: ENOXAPARIN 30 MG/0.3 ML SYRINGE SUBCUT SCH (20:53)
[2019-06-10] MEDS: ALBUTEROL/IPRATROPIUM 3 ML NEB RESP TX SCH ×4 (01:42→19:16)
[2019-06-10] MEDS: INSULIN REGULAR 100 UNIT/ML SUBCUT SCH ×4 (07:37→21:17)
[2019-06-10] MEDS: carvediloL 25 MG TABLET PO SCH ×2 (13:36→17:50)
[2019-06-10] MEDS: PANTOPRAZOLE 40 MG TABLET PO SCH (13:44)
[2019-06-10] MEDS: CALCITRIOL 0.5 MCG CAPSULE PO SCH ×2 (13:44→21:41)
[2019-06-10] MEDS: metOLazone 2.5 MG TABLET PO SCH (13:44)
[2019-06-10] MEDS: cloNIDine 0.1 MG TABLET PO SCH ×2 (13:44→21:42)
[2019-06-10] MEDS: AZITHROMYCIN 250 MG TABLET PO SCH (13:44)
[2019-06-10] MEDS: amLODIPine 10 MG TABLET PO SCH (13:44)
[2019-06-10] MEDS: LOSARTAN 50 MG TABLET PO SCH (13:44)
[2019-06-10] MEDS: CINACALCET 30 MG TABLET PO SCH (17:50)
[2019-06-10] MEDS: cefTRIAXone 2,000 MG in SYRINGE 1 EACH IV SCH (21:42)
[2019-06-10] MEDS: ENOXAPARIN 30 MG/0.3 ML SYRINGE SUBCUT SCH ×2 (21:42→21:45)
[2019-06-11] MEDS: ALBUTEROL/IPRATROPIUM 3 ML NEB RESP TX SCH ×2 (00:55→07:05)
[2019-06-11] MEDS: INSULIN REGULAR 100 UNIT/ML SUBCUT SCH ×2 (07:43→12:18)
[2019-06-11] MEDS: metOLazone 2.5 MG TABLET PO SCH (08:53)
[2019-06-11] MEDS: LOSARTAN 50 MG TABLET PO SCH (08:54)
[2019-06-11] MEDS: amLODIPine 10 MG TABLET PO SCH (08:54)
[2019-06-11] MEDS: CALCITRIOL 0.5 MCG CAPSULE PO SCH (08:54)
[2019-06-11] MEDS: AZITHROMYCIN 250 MG TABLET PO SCH (08:54)
[2019-06-11] MEDS: PANTOPRAZOLE 40 MG TABLET PO SCH (08:54)
[2019-06-11] MEDS: carvediloL 25 MG TABLET PO SCH (08:54)
[2019-06-11] MEDS: cloNIDine 0.1 MG TABLET PO SCH (08:54)
[2019-06-11 12:54] VITALS: BP 120/60
== END 2019-06-11 14:57 | disposition home or self-care (01) | DRG 139 ==
LOC: EDUNIT# → N.ED 14:20 → N.EDINP 18:34 → SUATTDRO 18:34 → N.2E 19:48
PROVIDERS: ADMIT Internal Medicine; ATTEND Internal Medicine

== ENCOUNTER 2019-09-04 11:27 | Inpatient (IN) ==
[2019-09-04 13:59] LABS: Basophils % 0.2 % (0.0-0.8); Eosinophils # 0.2 10*3/uL (0.0-0.87); Eosinophils % 1.5 % (0.00-10.9); Hematocrit 21.9 VOL% (35.7-47.0); Hemoglobin 6.8 GM/DL (12.0-16.0); Immature Granulocytes % 0.7 %; Lymphocytes # 1.3 10*3/uL (1.4-4.0); Lymphocytes % 9.9 % (21.3-54.2); Mean Corpuscular HGB Conc 31.1 GM/DL (32-36); Mean Corpuscular Volume 82.6 FL (87-102); Mean Platelet Volume 10.8 FL (9.6-12.0); Monocytes % 6.7 % (1.7-12.7); Platelet Count 296 T/CUMM (130-400); Red Blood Count 2.65 MC/CUMM (3.8-5.5); Red Cell Distribution Width 21.6 % (9.3-17.3); White Blood Count 13.4 T/CUMM (4-12)
[2019-09-04] MEDS ORDERED: cefTRIAXone 1,000 MG in SODIUM CHLORIDE 0.9% 100 ML IV STA (14:13)
[2019-09-04 14:14] LABS: Albumin 2.5 G/DL (3.4-5.0); Bilirubin,Total 0.6 MG/DL (0.2-1.0); Calcium 8.6 MG/DL (8.5-10.1); Osmolality,Calculated 268.8 MOS/KG (273-304); Total Protein 8.2 G/DL (6.4-8.3)
[2019-09-04] MEDS ORDERED: ONDANSETRON 4 MG/2 ML VIAL IV PRN (16:42)
[2019-09-04] MEDS ORDERED: ACETAMINOPHEN 325 MG TABLET PO PRN (16:42)
[2019-09-04] MEDS ORDERED: SODIUM CHLORIDE 0.9% 1,000 ML IV PRN (18:30)
[2019-09-05 05:06] LABS: Basophils % 0.2 % (0.0-0.8); Eosinophils # 0.2 10*3/uL (0.0-0.87); Eosinophils % 1.8 % (0.00-10.9); Hematocrit 21.3 VOL% (35.7-47.0); Hemoglobin 6.8 GM/DL (12.0-16.0); Lymphocytes # 1.4 10*3/uL (1.4-4.0); Lymphocytes % 14.1 % (21.3-54.2); Mean Corpuscular HGB Conc 31.9 GM/DL (32-36); Mean Corpuscular Volume 80.7 FL (87-102); Mean Platelet Volume 11.5 FL (9.6-12.0); Monocytes % 5.6 % (1.7-12.7); Neutrophils % 77.3 % (38.7-73.9); Platelet Count 293 T/CUMM (130-400); Red Blood Count 2.64 MC/CUMM (3.8-5.5); Red Cell Distribution Width 21.9 % (9.3-17.3)
[2019-09-05 05:43] LABS: Albumin 2.4 G/DL (3.4-5.0); Bilirubin,Total 0.6 MG/DL (0.2-1.0); Osmolality,Calculated 268.9 MOS/KG (273-304); Risk Ratio 4.26; Thyroid Stimulating Hormone 1.43 uIU/ml (0.358-3.74); Total Protein 7.4 G/DL (6.4-8.3); VLDL CHOLESTEROL 19.2 MG/DL
[2019-09-05] MEDS: PANTOPRAZOLE 40 MG TABLET PO SCH (08:49)
[2019-09-05] MEDS: AZITHROMYCIN INJ 500 MG in SODIUM CHLORIDE 0.9% 250 ML IV SCH (08:50)
[2019-09-05] MEDS: cefTRIAXone 1,000 MG in SYRINGE 1 EACH IV SCH (08:50)
[2019-09-05] MEDS ORDERED: guaiFENesin 200 MG/10 ML UDCUP PO PRN (16:17)
[2019-09-05] MEDS: ALBUTEROL/IPRATROPIUM 3 ML NEB RESP TX SCH (19:27)
[2019-09-06] MEDS: ALBUTEROL/IPRATROPIUM 3 ML NEB RESP TX SCH ×4 (01:09→19:34)
[2019-09-06 05:12] LABS: Basophils % 0.3 % (0.0-0.8); Eosinophils # 0.1 10*3/uL (0.0-0.87); Hemoglobin 8.5 GM/DL (12.0-16.0); Immature Granulocytes % 0.9 %; Immature Granulocytes Absolute 0.12 #; Lymphocytes # 1.3 10*3/uL (1.4-4.0); Lymphocytes % 10.2 % (21.3-54.2); Mean Corpuscular HGB Conc 31.5 GM/DL (32-36); Mean Corpuscular Volume 80.8 FL (87-102); Mean Platelet Volume 11.7 FL (9.6-12.0); Monocytes % 8.5 % (1.7-12.7); Neutrophils % 79.1 % (38.7-73.9); Platelet Count 309 T/CUMM (130-400); Red Blood Count 3.34 MC/CUMM (3.8-5.5); Red Cell Distribution Width 19.8 % (9.3-17.3); White Blood Count 12.8 T/CUMM (4-12)
[2019-09-06 05:29] LABS: Albumin 2.3 G/DL (3.4-5.0); Bilirubin,Total 0.5 MG/DL (0.2-1.0); Calcium 8.7 MG/DL (8.5-10.1); Osmolality,Calculated 269.4 MOS/KG (273-304)
[2019-09-06] MEDS: PANTOPRAZOLE 40 MG TABLET PO SCH (09:18)
[2019-09-06] MEDS: AZITHROMYCIN INJ 500 MG in SODIUM CHLORIDE 0.9% 250 ML IV SCH (09:19)
[2019-09-06] MEDS: cefTRIAXone 1,000 MG in SYRINGE 1 EACH IV SCH (09:21)
[2019-09-06] MEDS ORDERED: CEFEPIME 1,000 MG in SODIUM CHLORIDE 0.9% 100 ML IV ONE (10:00)
[2019-09-07] MEDS: ALBUTEROL/IPRATROPIUM 3 ML NEB RESP TX SCH ×4 (00:10→19:50)
[2019-09-07 05:03] LABS: Basophils % 0.4 % (0.0-0.8); Eosinophils # 0.3 10*3/uL (0.0-0.87); Eosinophils % 3.1 % (0.00-10.9); Hematocrit 26.1 VOL% (35.7-47.0); Hemoglobin 8.4 GM/DL (12.0-16.0); Lymphocytes # 1.6 10*3/uL (1.4-4.0); Lymphocytes % 15.5 % (21.3-54.2); Mean Corpuscular HGB Conc 32.2 GM/DL (32-36); Mean Corpuscular Volume 80.3 FL (87-102); Mean Platelet Volume 10.4 FL (9.6-12.0); Monocytes % 8.9 % (1.7-12.7); Neutrophils % 71.1 % (38.7-73.9); Platelet Count 300 T/CUMM (130-400); Red Blood Count 3.25 MC/CUMM (3.8-5.5); Red Cell Distribution Width 19.9 % (9.3-17.3); White Blood Count 10.2 T/CUMM (4-12)
[2019-09-07 05:58] LABS: Albumin 2.4 G/DL (3.4-5.0); Bilirubin,Total 0.7 MG/DL (0.2-1.0); Calcium 8.7 MG/DL (8.5-10.1); Osmolality,Calculated 277.2 MOS/KG (273-304); Total Protein 8.2 G/DL (6.4-8.3)
[2019-09-07] MEDS: PANTOPRAZOLE 40 MG TABLET PO SCH (08:18)
[2019-09-07] MEDS ORDERED: POTASSIUM CHLORIDE 20 MEQ TABLET PO ONE (08:19)
[2019-09-07] MEDS ORDERED: ALTEPLASE 2 MG VIAL IV SCH ×2 (13:00)
[2019-09-07] MEDS ORDERED: HEPARIN 10,000 UNIT/10 ML VIAL IV SCH (13:00)
[2019-09-07] MEDS: AZITHROMYCIN INJ 500 MG in SODIUM CHLORIDE 0.9% 250 ML IV SCH (13:13)
[2019-09-07] MEDS ORDERED: CEFEPIME 1,000 MG in SODIUM CHLORIDE 0.9% 100 ML IV SCH (17:00)
[2019-09-08] MEDS: ALBUTEROL/IPRATROPIUM 3 ML NEB RESP TX SCH ×4 (00:28→19:42)
[2019-09-08 08:22] LABS: Basophils # 0.1 10*3/uL (0.0-0.2); Basophils % 0.6 % (0.0-0.8); Eosinophils # 0.3 10*3/uL (0.0-0.87); Eosinophils % 3.5 % (0.00-10.9); Hematocrit 29.8 VOL% (35.7-47.0); Hemoglobin 9.3 GM/DL (12.0-16.0); Immature Granulocytes % 0.7 %; Immature Granulocytes Absolute 0.06 #; Lymphocytes # 1.5 10*3/uL (1.4-4.0); Lymphocytes % 16.6 % (21.3-54.2); Mean Corpuscular HGB Conc 31.2 GM/DL (32-36); Mean Corpuscular Volume 82.8 FL (87-102); Mean Platelet Volume 11.4 FL (9.6-12.0); Monocytes % 9.6 % (1.7-12.7); Platelet Count 390 T/CUMM (130-400); Red Cell Distribution Width 19.9 % (9.3-17.3); White Blood Count 8.8 T/CUMM (4-12)
[2019-09-08] MEDS: PANTOPRAZOLE 40 MG TABLET PO SCH (08:26)
[2019-09-08] MEDS: AZITHROMYCIN INJ 500 MG in SODIUM CHLORIDE 0.9% 250 ML IV SCH (08:26)
[2019-09-08 08:41] LABS: Osmolality,Calculated 274.1 MOS/KG (273-304)
[2019-09-08] MEDS ORDERED: GENTAMICIN INJ 80 MG in PREMIX 1 EACH IV ONE (15:00)
[2019-09-09] MEDS: ALBUTEROL/IPRATROPIUM 3 ML NEB RESP TX SCH ×3 (01:22→14:28)
[2019-09-09 05:31] LABS: Basophils # 0.1 10*3/uL (0.0-0.2); Basophils % 0.9 % (0.0-0.8); Eosinophils # 0.4 10*3/uL (0.0-0.87); Eosinophils % 4.8 % (0.00-10.9); Hematocrit 26.9 VOL% (35.7-47.0); Hemoglobin 8.3 GM/DL (12.0-16.0); Immature Granulocytes % 1.6 %; Immature Granulocytes Absolute 0.13 #; Lymphocytes % 24.8 % (21.3-54.2); Mean Corpuscular HGB Conc 30.9 GM/DL (32-36); Mean Corpuscular Volume 83.5 FL (87-102); Monocytes % 8.8 % (1.7-12.7); Neutrophils % 59.1 % (38.7-73.9); Platelet Count 388 T/CUMM (130-400); Red Blood Count 3.22 MC/CUMM (3.8-5.5); Red Cell Distribution Width 19.9 % (9.3-17.3); White Blood Count 8.2 T/CUMM (4-12)
[2019-09-09 05:52] LABS: Calcium 8.8 MG/DL (8.5-10.1); Osmolality,Calculated 273.1 MOS/KG (273-304)
[2019-09-09] MEDS: PANTOPRAZOLE 40 MG TABLET PO SCH (08:08)
[2019-09-09] MEDS: AZITHROMYCIN INJ 500 MG in SODIUM CHLORIDE 0.9% 250 ML IV SCH (08:09)
[2019-09-09 14:57] VITALS: BP 159/96
[2019-09-09] MEDS ORDERED: GENTAMICIN INJ 80 MG in PREMIX 1 EACH IV SCH (17:00)
== END 2019-09-09 15:52 | disposition home or self-care (01) | DRG 139 ==
LOC: N.ED 11:27 → N.EDINP 15:40 → N.5E 17:05
PROVIDERS: ADMIT Internal Medicine; ATTEND Internal Medicine

== ENCOUNTER 2019-09-19 17:32 | Observation (INO) ==
[2019-09-19 19:06] LABS: Basophils # 0.1 10*3/uL (0.0-0.2); Basophils % 0.5 % (0.0-0.8); Eosinophils # 0.2 10*3/uL (0.0-0.87); Eosinophils % 1.8 % (0.00-10.9); Hematocrit 28.1 VOL% (35.7-47.0); Hemoglobin 8.7 GM/DL (12.0-16.0); Immature Granulocytes % 0.6 %; Immature Granulocytes Absolute 0.06 #; Lymphocytes # 2.1 10*3/uL (1.4-4.0); Lymphocytes % 20.4 % (21.3-54.2); Mean Corpuscular Volume 82.4 FL (87-102); Mean Platelet Volume 9.4 FL (9.6-12.0); Monocytes % 5.1 % (1.7-12.7); Neutrophils % 71.6 % (38.7-73.9); Platelet Count 261 T/CUMM (130-400); Red Blood Count 3.41 MC/CUMM (3.8-5.5); Red Cell Distribution Width 22.8 % (9.3-17.3); White Blood Count 10.2 T/CUMM (4-12)
[2019-09-19 19:26] LABS: Albumin 2.9 G/DL (3.4-5.0); Bilirubin,Total 0.6 MG/DL (0.2-1.0); Calcium 9.4 MG/DL (8.5-10.1); Osmolality,Calculated 275.2 MOS/KG (273-304)
[2019-09-19 19:32] LABS: Troponin I 0.017 NG/ML (0.00-0.045)
[2019-09-19 19:33] LABS: PT Patient Result 10.7 SECS (9.6-12.2); Partial Thromboplastin Time 27.3 SECS (20.8-36.0)
[2019-09-19 19:42] LABS: Anisocytosis 1+; Hypochromasia Slight; Macrocytosis Slight; Microcytosis 1+; Platelet Estimate Normal; Polychromasia Slight
[2019-09-19] MEDS ORDERED: cefTRIAXone 1,000 MG in SODIUM CHLORIDE 0.9% 100 ML IV STA (21:08)
[2019-09-20] MEDS ORDERED: ACETAMINOPHEN 325 MG TABLET PO PRN (00:35)
[2019-09-20] MEDS ORDERED: ONDANSETRON 4 MG/2 ML VIAL IV PRN (00:35)
[2019-09-20] MEDS ORDERED: DEXTROSE 50% 25 GM/50 ML SYRINGE IV PRN (00:53)
[2019-09-20] MEDS ORDERED: GLUCAGON 1 MG VIAL IM PRN (00:53)
[2019-09-20] MEDS: AZITHROMYCIN INJ 500 MG in SODIUM CHLORIDE 0.9% 250 ML IV SCH (01:51)
[2019-09-20] MEDS: ALBUTEROL/IPRATROPIUM 3 ML NEB RESP TX SCH ×4 (02:06→19:38)
[2019-09-20 07:04] LABS: Basophils # 0.1 10*3/uL (0.0-0.2); Basophils % 0.7 % (0.0-0.8); Eosinophils # 0.2 10*3/uL (0.0-0.87); Eosinophils % 2.9 % (0.00-10.9); Hematocrit 26.8 VOL% (35.7-47.0); Immature Granulocytes % 0.8 %; Immature Granulocytes Absolute 0.07 #; Lymphocytes # 2.2 10*3/uL (1.4-4.0); Mean Corpuscular HGB Conc 29.9 GM/DL (32-36); Mean Corpuscular Volume 85.1 FL (87-102); Mean Platelet Volume 9.2 FL (9.6-12.0); Monocytes % 5.8 % (1.7-12.7); Neutrophils % 63.8 % (38.7-73.9); Platelet Count 226 T/CUMM (130-400); Red Blood Count 3.15 MC/CUMM (3.8-5.5); Red Cell Distribution Width 22.6 % (9.3-17.3); White Blood Count 8.3 T/CUMM (4-12)
[2019-09-20 07:23] LABS: Albumin 2.4 G/DL (3.4-5.0); Bilirubin,Total 0.4 MG/DL (0.2-1.0); Calcium 8.8 MG/DL (8.5-10.1); Total Protein 7.9 G/DL (6.4-8.3)
[2019-09-20 07:25] LABS: Anisocytosis 1+; Hypochromasia 1+; Microcytosis 1+; Polychromasia Slight
[2019-09-20 07:26] LABS: Platelet Estimate Normal
[2019-09-20] MEDS: INSULIN REGULAR 100 UNIT/ML SUBCUT SCH ×4 (08:52→21:24)
[2019-09-20] MEDS: ENOXAPARIN 30 MG/0.3 ML SYRINGE SUBCUT SCH (08:52)
[2019-09-20] MEDS: PANTOPRAZOLE 40 MG TABLET PO SCH (08:52)
[2019-09-20] MEDS ORDERED: guaiFENesin 200 MG/10 ML UDCUP PO PRN (14:50)
[2019-09-20] MEDS ORDERED: GENTAMICIN INJ 80 MG in PREMIX 1 EACH IV PRN (14:58)
[2019-09-20 15:39] LABS: Troponin I < 0.015 NG/ML (0.00-0.045)
[2019-09-20] MEDS ORDERED: CINACALCET 30 MG TABLET PO SCH (17:00)
[2019-09-20] MEDS ORDERED: GENTAMICIN INJ 80 MG in PREMIX 1 EACH IV ONE (17:00)
[2019-09-20] MEDS: SEVELAMER CARBONATE 800 MG TABLET PO SCH (17:52)
[2019-09-20] MEDS ORDERED: cefTRIAXone 1,000 MG in SYRINGE 1 EACH IV SCH (18:00)
[2019-09-20] MEDS: carvediloL 25 MG TABLET PO SCH (21:10)
[2019-09-20] MEDS: cloNIDine 0.1 MG TABLET PO SCH (21:10)
[2019-09-21] MEDS: AZITHROMYCIN INJ 500 MG in SODIUM CHLORIDE 0.9% 250 ML IV SCH (01:31)
[2019-09-21] MEDS: ALBUTEROL/IPRATROPIUM 3 ML NEB RESP TX SCH ×2 (02:05→08:05)
[2019-09-21 04:47] LABS: Basophils # 0.1 10*3/uL (0.0-0.2); Basophils % 0.7 % (0.0-0.8); Eosinophils # 0.3 10*3/uL (0.0-0.87); Eosinophils % 3.4 % (0.00-10.9); Hematocrit 26.2 VOL% (35.7-47.0); Hemoglobin 7.8 GM/DL (12.0-16.0); Immature Granulocytes % 0.8 %; Immature Granulocytes Absolute 0.06 #; Lymphocytes # 1.5 10*3/uL (1.4-4.0); Lymphocytes % 19.2 % (21.3-54.2); Mean Corpuscular HGB Conc 29.8 GM/DL (32-36); Mean Corpuscular Volume 85.1 FL (87-102); Mean Platelet Volume 9.3 FL (9.6-12.0); Monocytes % 6.3 % (1.7-12.7); Neutrophils % 69.6 % (38.7-73.9); Platelet Count 199 T/CUMM (130-400); Red Blood Count 3.08 MC/CUMM (3.8-5.5); Red Cell Distribution Width 22.6 % (9.3-17.3); White Blood Count 7.6 T/CUMM (4-12)
[2019-09-21 05:09] LABS: Hypochromasia 1+; Platelet Estimate Adequate
[2019-09-21 05:10] LABS: Macrocytosis Slight; Polychromasia Slight
[2019-09-21 05:15] LABS: Troponin I 0.018 NG/ML (0.00-0.045)
[2019-09-21 05:31] LABS: Osmolality,Calculated 284.1 MOS/KG (273-304)
[2019-09-21] MEDS ORDERED: HEPARIN 10,000 UNIT/10 ML VIAL IV PRN (07:29)
[2019-09-21] MEDS: INSULIN REGULAR 100 UNIT/ML SUBCUT SCH ×2 (07:34→12:49)
[2019-09-21] MEDS ORDERED: GENTAMICIN IV SCH (08:00)
[2019-09-21 08:33] VITALS: BP 162/86
[2019-09-21] MEDS ORDERED: MAGNESIUM OXIDE 400 MG TABLET PO SCH (09:00)
[2019-09-21] MEDS ORDERED: LOSARTAN 50 MG TABLET PO SCH (09:00)
[2019-09-21] MEDS ORDERED: amLODIPine 10 MG TABLET PO SCH (09:00)
[2019-09-21] MEDS: SEVELAMER CARBONATE 800 MG TABLET PO SCH ×2 (10:09→12:49)
[2019-09-21] MEDS: ENOXAPARIN 30 MG/0.3 ML SYRINGE SUBCUT SCH (12:48)
[2019-09-21] MEDS: cloNIDine 0.1 MG TABLET PO SCH (12:48)
[2019-09-21] MEDS: carvediloL 25 MG TABLET PO SCH (12:48)
[2019-09-21] MEDS: PANTOPRAZOLE 40 MG TABLET PO SCH (12:49)
[2019-09-22] MEDS ORDERED: AZITHROMYCIN 250 MG TABLET PO SCH (09:00)
== END 2019-09-21 12:58 | disposition home or self-care (01) ==
LOC: N.EDINP 17:32 → N.ED 17:32 → N.EDINP 09-20 01:15 → N.TELEN 09-20 01:54
PROVIDERS: ADMIT Internal Medicine; ATTEND Internal Medicine

== ENCOUNTER 2019-10-24 20:03 | Inpatient (IN) ==
[2019-10-24] MEDS ORDERED: SODIUM CHLORIDE 0.9% 1,000 ML IV STA (20:40)
[2019-10-24] MEDS ORDERED: ONDANSETRON 4 MG/2 ML VIAL IV STA (20:40)
[2019-10-24] MEDS ORDERED: AZITHROMYCIN INJ 500 MG in SODIUM CHLORIDE 0.9% 250 ML IV STA (20:40)
[2019-10-24] MEDS ORDERED: VANCOMYCIN INJ 750 MG in SODIUM CHLORIDE 0.9% 250 ML IV STA (20:40)
[2019-10-24] MEDS ORDERED: ACETAMINOPHEN 500 MG TABLET ONE (20:56)
[2019-10-24] MEDS ORDERED: ACETAMINOPHEN 500 MG TABLET PO STA (20:57)
[2019-10-24] MEDS: TERBUTALINE 1 MG/1 ML VIAL SUBCUT SCH (21:00)
[2019-10-24 21:01] LABS: Basophils # 0.1 10*3/uL (0.0-0.2); Basophils % 0.5 % (0.0-0.8); Eosinophils % 0.4 % (0.00-10.9); Hematocrit 30.9 VOL% (35.7-47.0); Hemoglobin 9.1 GM/DL (12.0-16.0); Immature Granulocytes % 0.6 %; Immature Granulocytes Absolute 0.06 #; Lymphocytes # 1.4 10*3/uL (1.4-4.0); Lymphocytes % 12.5 % (21.3-54.2); Mean Corpuscular HGB Conc 29.4 GM/DL (32-36); Monocytes % 3.3 % (1.7-12.7); Neutrophils % 82.7 % (38.7-73.9); Platelet Count 238 T/CUMM (130-400); Red Blood Count 3.96 MC/CUMM (3.8-5.5); Red Cell Distribution Width 23.4 % (9.3-17.3); White Blood Count 10.8 T/CUMM (4-12)
[2019-10-24 21:19] LABS: INR 1.1; PT Patient Result 11.3 SECS (9.8-11.9); Partial Thromboplastin Time 30.5 SECS (20.8-36.0)
[2019-10-24 21:22] LABS: Alanine Aminotransferase 16 U/L (13-56); Albumin 3.1 G/DL (3.4-5.0); Alkaline Phosphatase 133 U/L (45-117); Aspartate Amino Transferase 19 U/L (0-37); Blood Urea Nitrogen 67 MG/DL (7-18); Calcium 9.6 MG/DL (8.5-10.1); Estimated Glom Filtration Rate 3 ML/MIN; Glucose 113 MG/DL (74-106); Osmolality,Calculated 281.7 MOS/KG (273-304); Total Protein 9.5 G/DL (6.4-8.3)
[2019-10-24 21:25] LABS: Troponin I 0.062 NG/ML (0.00-0.045)
[2019-10-24] MEDS ORDERED: ZALEPLON 5 MG CAPSULE PO PRN (22:56)
[2019-10-24] MEDS ORDERED: ONDANSETRON 4 MG/2 ML VIAL IV PRN (22:56)
[2019-10-24] MEDS ORDERED: diphenhydrAMINE CAP 25 MG CAPSULE PO PRN (22:56)
[2019-10-24] MEDS ORDERED: GLUCAGON 1 MG VIAL IM PRN (22:56)
[2019-10-24] MEDS ORDERED: DEXTROSE 50% 25 GM/50 ML VIAL IV PRN (22:56)
[2019-10-24] MEDS ORDERED: NICOTINE 21 MG/24 HR PATCH TRANSDERM PRN (22:56)
[2019-10-24] MEDS ORDERED: guaiFENesin/DM ER 600-30 MG TABLET PO PRN (22:56)
[2019-10-24] MEDS ORDERED: ALUMINUM/MAGNES/SIMETH MAX STR 30 ML UDCUP PO PRN (22:56)
[2019-10-25] MEDS: INSULIN REGULAR 100 UNIT/ML SUBCUT SCH ×4 (02:46→18:41)
[2019-10-25] MEDS: cefTRIAXone 2,000 MG in SYRINGE 1 EACH IV SCH (03:55)
[2019-10-25 06:02] LABS: Allen Test Positive
[2019-10-25 06:03] LABS: ABG Base Excess -0.1 MMOL/L (-2.5-2.5); ABG HCO3 24.2 MMOL/L (20-26); ABG Oxygen Saturation 89.5 % (95-100); ABG PCO2 34.4 MM HG (35-48); ABG PH 7.444 (7.35-7.45); ABG PO2 60.6 MM HG (80-95); ABG TCO2 21.7 MMOL/L (23-27)
[2019-10-25 06:33] LABS: Bilirubin,Total 0.7 MG/DL (0.2-1.0); Calcium 9.6 MG/DL (8.5-10.1); Osmolality,Calculated 288.1 MOS/KG (273-304); Total Protein 8.6 G/DL (6.4-8.3)
[2019-10-25] MEDS: ACETAMINOPHEN 325 MG TABLET PO PRN (08:58)
[2019-10-25] MEDS ORDERED: HEPARIN 10,000 UNIT/10 ML VIAL IV SCH (11:00)
[2019-10-25] MEDS: TERBUTALINE 1 MG/1 ML VIAL SUBCUT SCH (17:12)
[2019-10-25 17:16] LABS: Apearance,Urine CLOUDY (Clear); Bacteria,Urine Occasional /HPF (Few); Bilirubin,Urine Negative (Negative); Blood, Urine Small mg/dL (Negative); Calcium Oxalate Crystals,Urine Occasional /HPF (Few); Glucose,Urine (UA) 50 mg/dL (Negative); Ketones,Urine Negative (Negative); Nitrite,Urine Negative (Negative); Protein,Urine >=500 MG/DL; RBC,Urine 8 /HPF (0-4); Squamous Epithelial Cell,Urine Many /HPF (0-10); Urine Color Yellow (Yellow); Urine Specific Gravity 1.011 (1.001-1.035); Urine Urobilinogen < 2.0 EU/DL (0.2-1.0); WBC,Urine 37 /HPF (0-6)
[2019-10-25 19:07] LABS: Barbiturates Screen,Urine Negative (Negative); Benzodiazepines Screen,Urine Negative (Negative); Cannabinoid Screen,Urine Negative (Negative); Opiate Screen,Urine Negative (Negative); Phencyclidine Screen,Urine Negative (Negative)
[2019-10-25] MEDS ORDERED: AZITHROMYCIN INJ 500 MG in SODIUM CHLORIDE 0.9% 250 ML IV SCH (21:00)
[2019-10-25] MEDS: AZITHROMYCIN 250 MG TABLET PO SCH (21:20)
[2019-10-26] MEDS: INSULIN REGULAR 100 UNIT/ML SUBCUT SCH ×4 (00:44→17:16)
[2019-10-26] MEDS: cefTRIAXone 2,000 MG in SYRINGE 1 EACH IV SCH (03:20)
[2019-10-26 04:11] LABS: Basophils % 0.4 % (0.0-0.8); Eosinophils # 0.2 10*3/uL (0.0-0.87); Eosinophils % 1.9 % (0.00-10.9); Hematocrit 26.4 VOL% (35.7-47.0); Hemoglobin 7.9 GM/DL (12.0-16.0); Immature Granulocytes % 0.6 %; Immature Granulocytes Absolute 0.05 #; Lymphocytes # 1.6 10*3/uL (1.4-4.0); Lymphocytes % 18.9 % (21.3-54.2); Mean Corpuscular HGB Conc 29.9 GM/DL (32-36); Mean Corpuscular Volume 78.1 FL (87-102); Monocytes % 6.6 % (1.7-12.7); Neutrophils % 71.6 % (38.7-73.9); Platelet Count 199 T/CUMM (130-400); Red Blood Count 3.38 MC/CUMM (3.8-5.5); Red Cell Distribution Width 24.3 % (9.3-17.3); White Blood Count 8.2 T/CUMM (4-12)
[2019-10-26 04:30] LABS: Hypochromasia 2+; Ovalocytes Slight; Platelet Estimate Adequate
[2019-10-26 05:07] LABS: Allen Test Positive
[2019-10-26 05:10] LABS: ABG Base Excess 2.7 MMOL/L (-2.5-2.5); ABG HCO3 26.9 MMOL/L (20-26); ABG Oxygen Saturation 98.2 % (95-100); ABG PCO2 41.6 MM HG (35-48); ABG PH 7.426 (7.35-7.45); ABG PO2 98.2 MM HG (80-95); ABG TCO2 25.6 MMOL/L (23-27)
[2019-10-26 06:35] LABS: Calcium 8.9 MG/DL (8.5-10.1); Osmolality,Calculated 280.2 MOS/KG (273-304)
[2019-10-26] MEDS ORDERED: LIDOCAINE 1%/EPI INJ 20 ML VIAL MISC INJ ONE (10:00)
[2019-10-26] MEDS: AZITHROMYCIN 250 MG TABLET PO SCH (20:34)
[2019-10-26] MEDS: hydrALAZINE 20 MG/1 ML VIAL IV PRN (20:42)
[2019-10-26] MEDS ORDERED: guaiFENesin 200 MG/10 ML UDCUP PO PRN (23:33)
[2019-10-26] MEDS ORDERED: LORazepam 2 MG/1 ML VIAL IV PRN (23:45)
[2019-10-27] MEDS ORDERED: LORazepam 2 MG/1 ML VIAL IV ONE
[2019-10-27] MEDS: INSULIN REGULAR 100 UNIT/ML SUBCUT SCH ×4 (01:49→19:53)
[2019-10-27] MEDS ORDERED: FUROSEMIDE 20 MG/2 ML VIAL ONE (02:33)
[2019-10-27] MEDS: cefTRIAXone 2,000 MG in SYRINGE 1 EACH IV SCH (03:50)
[2019-10-27] MEDS: hydrALAZINE 20 MG/1 ML VIAL IV PRN (03:56)
[2019-10-27 05:44] LABS: Calcium 9.9 MG/DL (8.5-10.1); Osmolality,Calculated 281.1 MOS/KG (273-304)
[2019-10-27] MEDS ORDERED: MEROPENEM 500 MG in SODIUM CHLORIDE 0.9% 100 ML IV SCH (13:00)
[2019-10-27] MEDS ORDERED: LORazepam 2 MG/1 ML VIAL IV PRN (19:51)
[2019-10-27] MEDS: AZITHROMYCIN 250 MG TABLET PO SCH (20:54)
[2019-10-28] MEDS: INSULIN REGULAR 100 UNIT/ML SUBCUT SCH ×4 (00:09→18:03)
[2019-10-28 05:19] LABS: Basophils # 0.1 10*3/uL (0.0-0.2); Basophils % 0.6 % (0.0-0.8); Eosinophils # 0.3 10*3/uL (0.0-0.87); Hematocrit 25.2 VOL% (35.7-47.0); Hemoglobin 7.5 GM/DL (12.0-16.0); Immature Granulocytes % 0.5 %; Immature Granulocytes Absolute 0.04 #; Lymphocytes # 1.8 10*3/uL (1.4-4.0); Lymphocytes % 22.6 % (21.3-54.2); Mean Corpuscular HGB Conc 29.8 GM/DL (32-36); Mean Corpuscular Volume 77.5 FL (87-102); Mean Platelet Volume 9.5 FL (9.6-12.0); Monocytes % 5.1 % (1.7-12.7); Neutrophils % 67.2 % (38.7-73.9); Platelet Count 236 T/CUMM (130-400); Red Blood Count 3.25 MC/CUMM (3.8-5.5); Red Cell Distribution Width 23.3 % (9.3-17.3); White Blood Count 8.1 T/CUMM (4-12)
[2019-10-28 05:44] LABS: Calcium 9.5 MG/DL (8.5-10.1); Osmolality,Calculated 282.2 MOS/KG (273-304)
[2019-10-28 05:52] LABS: Hypochromasia 1+; Ovalocytes Slight; Platelet Estimate Adequate
[2019-10-28] MEDS: LOSARTAN 50 MG TABLET PO SCH (10:53)
[2019-10-28] MEDS: cloNIDine 0.1 MG TABLET PO SCH ×2 (10:53→21:39)
[2019-10-28] MEDS: amLODIPine 10 MG TABLET PO SCH (10:54)
[2019-10-28] MEDS: SEVELAMER CARBONATE 800 MG TABLET PO SCH ×2 (13:00→17:02)
[2019-10-28] MEDS: cefTRIAXone 2,000 MG in SYRINGE 1 EACH IV SCH (14:05)
[2019-10-28] MEDS: AZITHROMYCIN 250 MG TABLET PO SCH (21:39)
[2019-10-29] MEDS: INSULIN REGULAR 100 UNIT/ML SUBCUT SCH ×4 (00:33→18:29)
[2019-10-29 04:47] LABS: Basophils # 0.1 10*3/uL (0.0-0.2); Basophils % 0.8 % (0.0-0.8); Eosinophils # 0.3 10*3/uL (0.0-0.87); Eosinophils % 4.5 % (0.00-10.9); Hematocrit 24.9 VOL% (35.7-47.0); Hemoglobin 7.5 GM/DL (12.0-16.0); Immature Granulocytes % 0.3 %; Immature Granulocytes Absolute 0.02 #; Lymphocytes # 2.1 10*3/uL (1.4-4.0); Lymphocytes % 34.9 % (21.3-54.2); Mean Corpuscular HGB Conc 30.1 GM/DL (32-36); Mean Corpuscular Volume 76.4 FL (87-102); Mean Platelet Volume 9.4 FL (9.6-12.0); Monocytes % 7.3 % (1.7-12.7); Neutrophils % 52.2 % (38.7-73.9); Platelet Count 220 T/CUMM (130-400); Red Blood Count 3.26 MC/CUMM (3.8-5.5); Red Cell Distribution Width 22.9 % (9.3-17.3)
[2019-10-29 05:12] LABS: Calcium 9.5 MG/DL (8.5-10.1); Osmolality,Calculated 277.2 MOS/KG (273-304)
[2019-10-29 05:35] LABS: Hypochromasia 1+; Platelet Estimate Normal
[2019-10-29 05:36] LABS: Microcytosis 1+
[2019-10-29] MEDS: LOSARTAN 50 MG TABLET PO SCH (07:30)
[2019-10-29] MEDS: cloNIDine 0.1 MG TABLET PO SCH ×2 (07:30→21:46)
[2019-10-29] MEDS: SEVELAMER CARBONATE 800 MG TABLET PO SCH ×3 (07:30→17:21)
[2019-10-29] MEDS: amLODIPine 10 MG TABLET PO SCH (07:30)
[2019-10-29] MEDS: cefTRIAXone 2,000 MG in SYRINGE 1 EACH IV SCH (12:21)
[2019-10-30] MEDS: INSULIN REGULAR 100 UNIT/ML SUBCUT SCH ×4 (01:05→18:41)
[2019-10-30] MEDS: SEVELAMER CARBONATE 800 MG TABLET PO SCH ×3 (09:23→16:47)
[2019-10-30] MEDS: LOSARTAN 50 MG TABLET PO SCH (09:35)
[2019-10-30] MEDS: cloNIDine 0.1 MG TABLET PO SCH ×2 (09:35→21:43)
[2019-10-30] MEDS: amLODIPine 10 MG TABLET PO SCH (09:35)
[2019-10-30] MEDS: cefTRIAXone 2,000 MG in SYRINGE 1 EACH IV SCH (11:40)
[2019-10-31] MEDS: INSULIN REGULAR 100 UNIT/ML SUBCUT SCH ×4 (05:00→18:11)
[2019-10-31 05:26] LABS: Albumin 2.5 G/DL (3.4-5.0); Bilirubin,Total 0.6 MG/DL (0.2-1.0); Calcium 9.3 MG/DL (8.5-10.1); Osmolality,Calculated 284.4 MOS/KG (273-304); Total Protein 8.1 G/DL (6.4-8.3)
[2019-10-31 08:01] LABS: Basophils % 0.5 % (0.0-0.8); Eosinophils # 0.2 10*3/uL (0.0-0.87); Eosinophils % 3.7 % (0.00-10.9); Hematocrit 23.8 VOL% (35.7-47.0); Hemoglobin 7.1 GM/DL (12.0-16.0); Immature Granulocytes % 0.3 %; Immature Granulocytes Absolute 0.02 #; Lymphocytes # 2.1 10*3/uL (1.4-4.0); Lymphocytes % 31.4 % (21.3-54.2); Mean Corpuscular HGB Conc 29.8 GM/DL (32-36); Mean Corpuscular Volume 78.3 FL (87-102); Mean Platelet Volume 8.7 FL (9.6-12.0); Monocytes % 5.6 % (1.7-12.7); Neutrophils % 58.5 % (38.7-73.9); Platelet Count 245 T/CUMM (130-400); Red Blood Count 3.04 MC/CUMM (3.8-5.5); Red Cell Distribution Width 23.6 % (9.3-17.3); White Blood Count 6.6 T/CUMM (4-12)
[2019-10-31] MEDS: ACETAMINOPHEN 325 MG TABLET PO PRN (08:06)
[2019-10-31] MEDS: amLODIPine 10 MG TABLET PO SCH (08:07)
[2019-10-31] MEDS: LOSARTAN 50 MG TABLET PO SCH (08:07)
[2019-10-31] MEDS: cloNIDine 0.1 MG TABLET PO SCH ×2 (08:07→22:21)
[2019-10-31] MEDS: SEVELAMER CARBONATE 800 MG TABLET PO SCH ×3 (08:13→16:20)
[2019-10-31 08:38] LABS: Hypochromasia 2+
[2019-10-31 08:39] LABS: Microcytosis 1+; Platelet Estimate Normal
[2019-10-31] MEDS ORDERED: SODIUM CHLORIDE 0.9% 1,000 ML IV PRN (09:23)
[2019-10-31] MEDS: cefTRIAXone 2,000 MG in SYRINGE 1 EACH IV SCH (13:02)
[2019-11-01] MEDS: INSULIN REGULAR 100 UNIT/ML SUBCUT SCH ×4 (01:35→17:40)
[2019-11-01 05:42] LABS: Basophils % 0.6 % (0.0-0.8); Eosinophils # 0.2 10*3/uL (0.0-0.87); Eosinophils % 2.8 % (0.00-10.9); Hematocrit 27.6 VOL% (35.7-47.0); Hemoglobin 8.3 GM/DL (12.0-16.0); Immature Granulocytes % 0.3 %; Immature Granulocytes Absolute 0.02 #; Lymphocytes # 1.9 10*3/uL (1.4-4.0); Lymphocytes % 28.2 % (21.3-54.2); Mean Corpuscular HGB Conc 30.1 GM/DL (32-36); Mean Corpuscular Volume 79.8 FL (87-102); Monocytes % 5.7 % (1.7-12.7); Neutrophils % 62.4 % (38.7-73.9); Platelet Count 240 T/CUMM (130-400); Red Blood Count 3.46 MC/CUMM (3.8-5.5); Red Cell Distribution Width 22.3 % (9.3-17.3); White Blood Count 6.9 T/CUMM (4-12)
[2019-11-01 06:19] LABS: Hypochromasia 1+; Microcytosis 1+; Platelet Estimate Normal; Polychromasia Few
[2019-11-01] MEDS: SEVELAMER CARBONATE 800 MG TABLET PO SCH ×3 (08:26→17:40)
[2019-11-01] MEDS: LOSARTAN 50 MG TABLET PO SCH (09:49)
[2019-11-01] MEDS: amLODIPine 10 MG TABLET PO SCH (09:49)
[2019-11-01] MEDS: cloNIDine 0.1 MG TABLET PO SCH ×2 (09:49→20:42)
[2019-11-01] MEDS: cefTRIAXone 2,000 MG in SYRINGE 1 EACH IV SCH (10:36)
[2019-11-01] MEDS ORDERED: SODIUM CHLORIDE 0.9% 250 ML IV SCH (12:00)
[2019-11-01] MEDS ORDERED: LIDOCAINE 1%/EPI INJ 20 ML VIAL ONE (12:35)
[2019-11-01] MEDS ORDERED: SEVOFLURANE 1 UNIT/15 MINUTE INH ONE (13:12)
[2019-11-01] MEDS ORDERED: propofoL 200 MG/20 ML VIAL IV ONE (13:12)
[2019-11-01] MEDS ORDERED: MIDAZOLAM 2 MG/2 ML VIAL ONE (13:12)
[2019-11-01] MEDS ORDERED: LIDOCAINE 2% 5 ML VIAL ONE (13:12)
[2019-11-01] MEDS ORDERED: fentaNYL 100 MCG/2 ML VIAL ONE (13:13)
[2019-11-01] MEDS: HYDROmorphone 2 MG/1 ML VIAL IV PRN ×2 (13:36→13:41)
[2019-11-01] MEDS ORDERED: HYDROmorphone 2 MG/1 ML VIAL ONE (13:36)
[2019-11-02 05:42] LABS: Basophils % 0.6 % (0.0-0.8); Eosinophils # 0.3 10*3/uL (0.0-0.87); Eosinophils % 3.9 % (0.00-10.9); Hematocrit 26.6 VOL% (35.7-47.0); Hemoglobin 8.2 GM/DL (12.0-16.0); Immature Granulocytes % 0.3 %; Immature Granulocytes Absolute 0.02 #; Lymphocytes % 28.8 % (21.3-54.2); Mean Corpuscular HGB Conc 30.8 GM/DL (32-36); Mean Corpuscular Volume 77.8 FL (87-102); Mean Platelet Volume 9.1 FL (9.6-12.0); Monocytes % 6.8 % (1.7-12.7); Neutrophils % 59.6 % (38.7-73.9); Platelet Count 243 T/CUMM (130-400); Red Blood Count 3.42 MC/CUMM (3.8-5.5); Red Cell Distribution Width 22.7 % (9.3-17.3); White Blood Count 6.9 T/CUMM (4-12)
[2019-11-02 06:11] LABS: Albumin 2.7 G/DL (3.4-5.0); Bilirubin,Total 0.5 MG/DL (0.2-1.0); Calcium 9.4 MG/DL (8.5-10.1); Osmolality,Calculated 281.4 MOS/KG (273-304); Total Protein 8.3 G/DL (6.4-8.3)
[2019-11-02 06:16] LABS: Anisocytosis 1+; Hypochromasia 2+; Microcytosis 1+
[2019-11-02] MEDS: INSULIN REGULAR 100 UNIT/ML SUBCUT SCH ×3 (07:49→14:23)
[2019-11-02 08:49] VITALS: BP 147/85
[2019-11-02] MEDS: cloNIDine 0.1 MG TABLET PO SCH (08:58)
[2019-11-02] MEDS: SEVELAMER CARBONATE 800 MG TABLET PO SCH ×2 (08:58→14:23)
[2019-11-02] MEDS: amLODIPine 10 MG TABLET PO SCH (08:58)
[2019-11-02] MEDS: LOSARTAN 50 MG TABLET PO SCH (08:58)
[2019-11-02] MEDS ORDERED: LEVOFLOXACIN 750 MG TABLET PO ONE (14:17)
[2019-11-02] MEDS: cefTRIAXone 2,000 MG in SYRINGE 1 EACH IV SCH (14:23)
== END 2019-11-02 15:43 | disposition home or self-care (01) | DRG 951 ==
LOC: N.ED 20:03 → N.EDINP 22:56 → SUATTDRO 22:56 → N.ICU 23:54 → N.2W 10-25 18:50 → N.3E 10-29 11:22
PROVIDERS: ADMIT Internal Medicine; ATTEND Family Medicine

== ENCOUNTER 2019-11-20 07:07 | Inpatient (IN) ==
[2019-11-20] MEDS ORDERED: hydrALAZINE 20 MG/1 ML VIAL IV STA (07:23)
[2019-11-20] MEDS ORDERED: METOPROLOL TARTRATE 5 MG/5 ML VIAL IV STA (07:23)
[2019-11-20] MEDS ORDERED: niCARdipine INJ 25 MG in SODIUM CHLORIDE 0.9% 240 ML IV PRN (07:24)
[2019-11-20] MEDS ORDERED: niCARdipine 25 MG/10 ML VIAL IV ONE (07:26)
[2019-11-20] MEDS ORDERED: cloNIDine 0.1 MG TABLET PO STA (07:35)
[2019-11-20 08:17] LABS: Basophils # 0.1 10*3/uL (0.0-0.2); Basophils % 0.4 % (0.0-0.8); Eosinophils # 0.3 10*3/uL (0.0-0.87); Hematocrit 32.7 VOL% (35.7-47.0); Immature Granulocytes % 0.5 %; Immature Granulocytes Absolute 0.07 #; Lymphocytes # 1.6 10*3/uL (1.4-4.0); Lymphocytes % 12.3 % (21.3-54.2); Mean Corpuscular HGB Conc 30.6 GM/DL (32-36); Mean Corpuscular Volume 76.8 FL (87-102); Monocytes % 4.4 % (1.7-12.7); Neutrophils % 80.4 % (38.7-73.9); Platelet Count 271 T/CUMM (130-400); Red Blood Count 4.26 MC/CUMM (3.8-5.5); White Blood Count 13.1 T/CUMM (4-12)
[2019-11-20 08:30] LABS: Albumin 3.5 G/DL (3.4-5.0); Bilirubin,Total 0.8 MG/DL (0.2-1.0); Calcium 9.8 MG/DL (8.5-10.1); Osmolality,Calculated 277.5 MOS/KG (273-304); Total Protein 10.2 G/DL (6.4-8.3)
[2019-11-20 08:39] LABS: Hypochromasia 1+; Microcytosis 1+; Platelet Estimate Adequate
[2019-11-20] MEDS ORDERED: ALBUTEROL/IPRATROPIUM 3 ML NEB RESP TX PRN (12:07)
[2019-11-20] MEDS: amLODIPine 10 MG TABLET PO SCH (12:15)
[2019-11-20] MEDS: cloNIDine 0.1 MG TABLET PO SCH ×2 (12:15→20:57)
[2019-11-20] MEDS: LOSARTAN 50 MG TABLET PO SCH (12:15)
[2019-11-20] MEDS: carvediloL 25 MG TABLET PO SCH ×2 (12:15→20:57)
[2019-11-20] MEDS: SEVELAMER CARBONATE 800 MG TABLET PO SCH ×2 (16:26→20:44)
[2019-11-20] MEDS: CINACALCET 30 MG TABLET PO SCH (20:45)
[2019-11-20] MEDS: INSULIN GLARGINE 100 UNIT/ML SUBCUT SCH (20:57)
[2019-11-20 22:53] LABS: INR 1.1; PT Patient Result 11.5 SECS (9.8-11.9)
[2019-11-21] MEDS: LORazepam 2 MG/1 ML VIAL IV PRN ×2 (00:20→20:31)
[2019-11-21 03:12] LABS: Ferritin 1491.9 ng/ml (8-252)
[2019-11-21] MEDS ORDERED: DEXTROSE 10% 250 ML BAG IV PRN (06:38)
[2019-11-21] MEDS ORDERED: ONDANSETRON 4 MG/2 ML VIAL IV PRN (06:38)
[2019-11-21] MEDS ORDERED: GLUCAGON 1 MG VIAL IM PRN (06:38)
[2019-11-21] MEDS ORDERED: guaiFENesin/DM ER 600-30 MG TABLET PO PRN (06:38)
[2019-11-21] MEDS ORDERED: ACETAMINOPHEN 325 MG TABLET PO PRN (06:38)
[2019-11-21] MEDS ORDERED: VANCOMYCIN INJ 1,000 MG in SODIUM CHLORIDE 0.9% 250 ML IV ONE (07:30)
[2019-11-21] MEDS: carvediloL 25 MG TABLET PO SCH ×2 (09:00→20:30)
[2019-11-21] MEDS: HEPARIN 5,000 UNIT/1 ML VIAL SUBCUT SCH ×2 (09:00→20:30)
[2019-11-21] MEDS: cloNIDine 0.1 MG TABLET PO SCH ×2 (09:00→20:30)
[2019-11-21] MEDS: amLODIPine 10 MG TABLET PO SCH (09:00)
[2019-11-21] MEDS: SEVELAMER CARBONATE 800 MG TABLET PO SCH ×2 (09:00→18:13)
[2019-11-21] MEDS: FAMOTIDINE 20 MG/2 ML VIAL IV SCH (09:00)
[2019-11-21] MEDS: LOSARTAN 50 MG TABLET PO SCH (09:00)
[2019-11-21] MEDS ORDERED: VANCOMYCIN INJ 500 MG in SODIUM CHLORIDE 0.9% 100 ML IV PRN (09:12)
[2019-11-21] MEDS: MEROPENEM 500 MG in SODIUM CHLORIDE 0.9% 100 ML IV SCH (09:30)
[2019-11-21 15:00] LABS: Eosinophils,Pleural Fluid 17 %; Lymphocytes,Pleural Fluid 48 %; Monocytes,Pleural Fluid 29 %; Neutrophils,Pleural Fluid 6 %; RBC,Pleural Fluid 181 T/CUMM
[2019-11-21] MEDS: CINACALCET 30 MG TABLET PO SCH (18:14)
[2019-11-21] MEDS: INSULIN GLARGINE 100 UNIT/ML SUBCUT SCH (20:30)
[2019-11-22 05:34] LABS: Basophils % 0.5 % (0.0-0.8); Eosinophils # 0.3 10*3/uL (0.0-0.87); Eosinophils % 4.9 % (0.00-10.9); Hematocrit 24.5 VOL% (35.7-47.0); Hemoglobin 7.2 GM/DL (12.0-16.0); Immature Granulocytes % 0.3 %; Immature Granulocytes Absolute 0.02 #; Lymphocytes # 1.7 10*3/uL (1.4-4.0); Lymphocytes % 29.5 % (21.3-54.2); Mean Corpuscular HGB Conc 29.4 GM/DL (32-36); Mean Corpuscular Volume 79.8 FL (87-102); Mean Platelet Volume 9.6 FL (9.6-12.0); Neutrophils % 57.8 % (38.7-73.9); Platelet Count 209 T/CUMM (130-400); Red Blood Count 3.07 MC/CUMM (3.8-5.5); Red Cell Distribution Width 23.5 % (9.3-17.3); White Blood Count 5.9 T/CUMM (4-12)
[2019-11-22 05:49] LABS: Calcium 8.7 MG/DL (8.5-10.1); Osmolality,Calculated 283.2 MOS/KG (273-304)
[2019-11-22 05:50] LABS: Hypochromasia 1+; Ovalocytes Slight; Platelet Estimate Adequate
[2019-11-22 05:52] LABS: Microcytosis 1+
[2019-11-22] MEDS: HEPARIN 5,000 UNIT/1 ML VIAL SUBCUT SCH ×2 (08:12→21:16)
[2019-11-22] MEDS: FAMOTIDINE 20 MG/2 ML VIAL IV SCH (08:12)
[2019-11-22] MEDS: MEROPENEM 500 MG in SODIUM CHLORIDE 0.9% 100 ML IV SCH (08:12)
[2019-11-22] MEDS: cloNIDine 0.1 MG TABLET PO SCH ×2 (08:12→21:16)
[2019-11-22] MEDS: amLODIPine 10 MG TABLET PO SCH (08:12)
[2019-11-22] MEDS: carvediloL 25 MG TABLET PO SCH ×2 (08:12→21:16)
[2019-11-22] MEDS: LOSARTAN 50 MG TABLET PO SCH (08:12)
[2019-11-22] MEDS: SEVELAMER CARBONATE 800 MG TABLET PO SCH ×3 (08:12→17:17)
[2019-11-22] MEDS: CINACALCET 30 MG TABLET PO SCH (17:16)
[2019-11-22] MEDS ORDERED: VANCOMYCIN INJ 500 MG in SODIUM CHLORIDE 0.9% 100 ML IV ONE (21:00)
[2019-11-22] MEDS: INSULIN GLARGINE 100 UNIT/ML SUBCUT SCH (21:21)
[2019-11-23] MEDS: LORazepam 2 MG/1 ML VIAL IV PRN (00:17)
[2019-11-23] MEDS: SEVELAMER CARBONATE 800 MG TABLET PO SCH ×3 (09:28→17:42)
[2019-11-23 10:21] LABS: Basophils % 0.4 % (0.0-0.8); Eosinophils # 0.3 10*3/uL (0.0-0.87); Eosinophils % 5.6 % (0.00-10.9); Hematocrit 22.9 VOL% (35.7-47.0); Immature Granulocytes % 0.6 %; Immature Granulocytes Absolute 0.03 #; Lymphocytes # 1.2 10*3/uL (1.4-4.0); Lymphocytes % 22.4 % (21.3-54.2); Mean Corpuscular HGB Conc 30.6 GM/DL (32-36); Mean Corpuscular Volume 74.6 FL (87-102); Mean Platelet Volume 9.6 FL (9.6-12.0); Monocytes % 5.6 % (1.7-12.7); Neutrophils % 65.4 % (38.7-73.9); Platelet Count 208 T/CUMM (130-400); Red Blood Count 3.07 MC/CUMM (3.8-5.5); Red Cell Distribution Width 22.6 % (9.3-17.3); White Blood Count 5.1 T/CUMM (4-12)
[2019-11-23 10:39] LABS: Hypochromasia 2+; Microcytosis Slight; Ovalocytes Slight; Platelet Estimate Adequate
[2019-11-23] MEDS: HEPARIN 5,000 UNIT/1 ML VIAL SUBCUT SCH ×2 (12:54→21:46)
[2019-11-23] MEDS: MEROPENEM 500 MG in SODIUM CHLORIDE 0.9% 100 ML IV SCH (12:54)
[2019-11-23] MEDS: FAMOTIDINE 20 MG/2 ML VIAL IV SCH (12:55)
[2019-11-23] MEDS: carvediloL 25 MG TABLET PO SCH ×2 (13:10→21:46)
[2019-11-23] MEDS: LOSARTAN 50 MG TABLET PO SCH (13:10)
[2019-11-23] MEDS: cloNIDine 0.1 MG TABLET PO SCH ×2 (13:10→21:46)
[2019-11-23] MEDS: amLODIPine 10 MG TABLET PO SCH (13:10)
[2019-11-23] MEDS ORDERED: VANCOMYCIN INJ 500 MG in SODIUM CHLORIDE 0.9% 100 ML IV ONE (17:00)
[2019-11-23] MEDS: CINACALCET 30 MG TABLET PO SCH (17:42)
[2019-11-23] MEDS: INSULIN GLARGINE 100 UNIT/ML SUBCUT SCH (21:53)
[2019-11-24] MEDS: LORazepam 2 MG/1 ML VIAL IV PRN ×2 (00:13→21:48)
[2019-11-24] MEDS: cloNIDine 0.1 MG TABLET PO SCH ×2 (09:32→21:47)
[2019-11-24] MEDS: carvediloL 25 MG TABLET PO SCH ×2 (09:32→21:47)
[2019-11-24] MEDS: SEVELAMER CARBONATE 800 MG TABLET PO SCH ×3 (09:32→17:10)
[2019-11-24] MEDS: FAMOTIDINE 20 MG/2 ML VIAL IV SCH (09:33)
[2019-11-24] MEDS: amLODIPine 10 MG TABLET PO SCH (09:33)
[2019-11-24] MEDS: LOSARTAN 50 MG TABLET PO SCH (09:33)
[2019-11-24] MEDS: HEPARIN 5,000 UNIT/1 ML VIAL SUBCUT SCH ×2 (09:33→21:48)
[2019-11-24] MEDS: MEROPENEM 500 MG in SODIUM CHLORIDE 0.9% 100 ML IV SCH (09:40)
[2019-11-24] MEDS: methylPREDNISolone SOD SUC 40 MG/1 ML VIAL IV SCH ×2 (13:12→21:49)
[2019-11-24] MEDS: CINACALCET 30 MG TABLET PO SCH (17:10)
[2019-11-24] MEDS: ALBUTEROL/IPRATROPIUM 3 ML NEB RESP TX SCH (19:22)
[2019-11-24] MEDS: INSULIN GLARGINE 100 UNIT/ML SUBCUT SCH (21:48)
[2019-11-25] MEDS: ALBUTEROL/IPRATROPIUM 3 ML NEB RESP TX SCH ×4 (01:44→19:27)
[2019-11-25] MEDS: methylPREDNISolone SOD SUC 40 MG/1 ML VIAL IV SCH (05:38)
[2019-11-25] MEDS: MEROPENEM 500 MG in SODIUM CHLORIDE 0.9% 100 ML IV SCH (09:35)
[2019-11-25] MEDS: FAMOTIDINE 20 MG/2 ML VIAL IV SCH (09:36)
[2019-11-25] MEDS: SEVELAMER CARBONATE 800 MG TABLET PO SCH ×3 (09:36→16:54)
[2019-11-25] MEDS: HEPARIN 5,000 UNIT/1 ML VIAL SUBCUT SCH ×2 (09:36→23:36)
[2019-11-25] MEDS: amLODIPine 10 MG TABLET PO SCH (09:37)
[2019-11-25] MEDS: carvediloL 25 MG TABLET PO SCH ×2 (09:38→23:36)
[2019-11-25] MEDS: cloNIDine 0.1 MG TABLET PO SCH ×2 (09:38→23:36)
[2019-11-25] MEDS: LOSARTAN 50 MG TABLET PO SCH (09:40)
[2019-11-25] MEDS ORDERED: SODIUM CHLORIDE 0.9% 1,000 ML IV PRN (10:59)
[2019-11-25] MEDS ORDERED: hydrALAZINE 20 MG/1 ML VIAL IV PRN (11:03)
[2019-11-25] MEDS ORDERED: DEXTROSE 50% 25 GM/50 ML VIAL IV PRN ×3 (11:06→12:39)
[2019-11-25] MEDS ORDERED: GLUCAGON 1 MG VIAL IM PRN ×3 (11:06→12:39)
[2019-11-25] MEDS: NON-FORMULARY MEDICATION (Sucroferric Oxyhydroxide [Velphoro] 1,000 MG) PO SCH ×2 (12:50→16:23)
[2019-11-25] MEDS: CINACALCET 30 MG TABLET PO SCH (16:54)
[2019-11-25] MEDS ORDERED: VANCOMYCIN INJ 500 MG in SODIUM CHLORIDE 0.9% 100 ML IV ONE (17:00)
[2019-11-25] MEDS: INSULIN LISPRO 100 UNIT/ML SUBCUT SCH (17:15)
[2019-11-25] MEDS: INSULIN GLARGINE 100 UNIT/ML SUBCUT SCH (23:36)
[2019-11-26] MEDS: ALBUTEROL/IPRATROPIUM 3 ML NEB RESP TX SCH ×2 (00:49→07:20)
[2019-11-26] MEDS: LORazepam 2 MG/1 ML VIAL IV PRN (01:20)
[2019-11-26] MEDS ORDERED: MAGNESIUM OXIDE 400 MG TABLET PO SCH (09:00)
[2019-11-26] MEDS: INSULIN LISPRO 100 UNIT/ML SUBCUT SCH ×2 (09:36→12:08)
[2019-11-26] MEDS: MEROPENEM 500 MG in SODIUM CHLORIDE 0.9% 100 ML IV SCH (09:37)
[2019-11-26] MEDS: SEVELAMER CARBONATE 800 MG TABLET PO SCH ×2 (09:38→12:07)
[2019-11-26] MEDS: amLODIPine 10 MG TABLET PO SCH (09:39)
[2019-11-26] MEDS: HEPARIN 5,000 UNIT/1 ML VIAL SUBCUT SCH (09:39)
[2019-11-26] MEDS: carvediloL 25 MG TABLET PO SCH (09:39)
[2019-11-26] MEDS: cloNIDine 0.1 MG TABLET PO SCH (09:39)
[2019-11-26] MEDS: NON-FORMULARY MEDICATION (Sucroferric Oxyhydroxide [Velphoro] 1,000 MG) PO SCH ×2 (09:39→11:46)
[2019-11-26] MEDS: LOSARTAN 50 MG TABLET PO SCH (09:39)
[2019-11-26] MEDS ORDERED: LEVOFLOXACIN 750 MG TABLET PO ONE (11:32)
[2019-11-26 11:55] VITALS: BP 140/75
== END 2019-11-26 12:53 | disposition home or self-care (01) | DRG 139 ==
LOC: N.ED 07:07 → N.EDINP 08:37 → N.ICU 09:53 → N.3E 17:30 → N.ICU 20:04 → N.TELEN 11-22 15:08
PROVIDERS: ADMIT Family Medicine; ATTEND Family Medicine

== ENCOUNTER 2019-12-21 00:15 | Inpatient (IN) ==
[2019-12-21] MEDS ORDERED: NITROGLYCERIN 2% OINT 1 INCH/GM PACK TOP ONE (00:22)
[2019-12-21 00:34] LABS: Basophils # 0.1 10*3/uL (0.0-0.2); Basophils % 0.4 % (0.0-0.8); Eosinophils # 0.2 10*3/uL (0.0-0.87); Hematocrit 37.3 VOL% (35.7-47.0); Hemoglobin 11.1 GM/DL (12.0-16.0); Immature Granulocytes % 0.4 %; Immature Granulocytes Absolute 0.05 #; Lymphocytes # 3.1 10*3/uL (1.4-4.0); Lymphocytes % 27.7 % (21.3-54.2); Mean Corpuscular HGB Conc 29.8 GM/DL (32-36); Mean Corpuscular Volume 80.9 FL (87-102); Mean Platelet Volume 8.9 FL (9.6-12.0); Monocytes % 4.1 % (1.7-12.7); NRBC # 0.02 10*3/uL; Neutrophils % 65.4 % (38.7-73.9); Platelet Count 305 T/CUMM (130-400); Red Blood Count 4.61 MC/CUMM (3.8-5.5); Red Cell Distribution Width 23.8 % (9.3-17.3); White Blood Count 11.2 T/CUMM (4-12)
[2019-12-21 00:44] LABS: Partial Thromboplastin Time 27.1 SECS (23.9-33.8)
[2019-12-21] MEDS ORDERED: NITROGLYCERIN 2% OINT 1 INCH/GM PACK TOP STA (00:53)
[2019-12-21] MEDS ORDERED: ROCURONIUM 100 MG/10 ML VIAL IV STA ×2 (00:53→02:00)
[2019-12-21] MEDS ORDERED: ETOMIDATE 20 MG/10 ML VIAL IV STA (00:53)
[2019-12-21 01:02] LABS: ABG Base Excess -1.9 MMOL/L (-2.5-2.5); ABG HCO3 22.8 MMOL/L (20-26); ABG Oxygen Saturation 95.9 % (95-100); ABG PCO2 52.8 MM HG (35-48); ABG PO2 90.5 MM HG (80-95); ABG TCO2 23.1 MMOL/L (23-27); Allen Test Positive; Pt O2 Delivery Device Ventilator
[2019-12-21 01:07] LABS: Albumin 3.5 G/DL (3.4-5.0); Bilirubin,Total 0.6 MG/DL (0.2-1.0); Calcium 9.3 MG/DL (8.5-10.1); Osmolality,Calculated 288.2 MOS/KG (273-304); Total Protein 9.6 G/DL (6.4-8.3)
[2019-12-21] MEDS ORDERED: niCARdipine 25 MG/10 ML VIAL IV ONE (01:12)
[2019-12-21] MEDS ORDERED: niCARdipine INJ 25 MG in SODIUM CHLORIDE 0.9% 240 ML IV SCH (01:30)
[2019-12-21] MEDS ORDERED: LABETALOL 20 MG/4 ML SYRINGE IV STA (01:54)
[2019-12-21] MEDS ORDERED: LABETALOL 20 MG/4 ML SYRINGE IV ONE (01:54)
[2019-12-21] MEDS ORDERED: ROCURONIUM 500 MG in SODIUM CHLORIDE 0.9% 500 ML IV PRN (02:20)
[2019-12-21] MEDS ORDERED: DEXTROSE 50% 25 GM/50 ML VIAL IV PRN (03:46)
[2019-12-21] MEDS ORDERED: GLUCAGON 1 MG VIAL IM PRN (03:46)
[2019-12-21] MEDS ORDERED: ONDANSETRON 4 MG/2 ML VIAL IV PRN (03:46)
[2019-12-21] MEDS: LORazepam INJ 40 MG in DEXTROSE 5% 30 ML IV PRN ×2 (04:20→20:35)
[2019-12-21 04:31] LABS: ABG Base Excess 0.4 MMOL/L (-2.5-2.5); ABG HCO3 25.8 MMOL/L (20-26); ABG Oxygen Saturation 99.4 % (95-100); ABG PCO2 44.9 MM HG (35-48); ABG PH 7.377 (7.35-7.45); ABG PO2 228.4 MM HG (80-95); ABG TCO2 27.2 MMOL/L (23-27); Allen Test Positive; Pt O2 Delivery Device Ventilator
[2019-12-21 04:45] LABS: Basophils % 0.4 % (0.0-0.8); Eosinophils # 0.1 10*3/uL (0.0-0.87); Eosinophils % 0.5 % (0.00-10.9); Hematocrit 34.4 VOL% (35.7-47.0); Hemoglobin 10.6 GM/DL (12.0-16.0); Immature Granulocytes % 0.5 %; Immature Granulocytes Absolute 0.05 #; Lymphocytes # 1.4 10*3/uL (1.4-4.0); Lymphocytes % 13.8 % (21.3-54.2); Mean Corpuscular HGB Conc 30.8 GM/DL (32-36); Mean Platelet Volume 8.9 FL (9.6-12.0); Neutrophils % 79.8 % (38.7-73.9); Platelet Count 252 T/CUMM (130-400); Red Blood Count 4.41 MC/CUMM (3.8-5.5); Red Cell Distribution Width 23.5 % (9.3-17.3)
[2019-12-21 05:13] LABS: Hypochromasia 2+; Microcytosis 1+
[2019-12-21 05:14] LABS: Anisocytosis 1+; Polychromasia Slight
[2019-12-21 05:15] LABS: Platelet Estimate Normal
[2019-12-21 05:22] LABS: Calcium 9.5 MG/DL (8.5-10.1); Osmolality,Calculated 288.2 MOS/KG (273-304)
[2019-12-21] MEDS: INSULIN REGULAR 100 UNIT/ML SUBCUT SCH ×3 (06:00→17:27)
[2019-12-21] MEDS: PANTOPRAZOLE 40 MG VIAL IV SCH (08:10)
[2019-12-21] MEDS: ENOXAPARIN 30 MG/0.3 ML SYRINGE SUBCUT SCH (08:10)
[2019-12-21] MEDS ORDERED: LEVOFLOXACIN INJ 750 MG in PREMIX 1 EACH IV ONE (10:00)
[2019-12-21] MEDS ORDERED: NOREPINEPHRINE 8 MG in SODIUM CHLORIDE 0.9% 242 ML IV PRN (10:30)
[2019-12-21] MEDS ORDERED: DEXTROSE 10% 250 ML IV ONE (11:42)
[2019-12-21] MEDS: ASPIRIN CHEW 81 MG TABLET PO SCH (11:51)
[2019-12-21] MEDS: ASCORBIC ACID 500 MG TABLET NG SCH ×2 (11:51→20:26)
[2019-12-21] MEDS: DEXTROSE 10% 250 ML BAG IV PRN ×2 (11:53→14:49)
[2019-12-21] MEDS: DEXTROSE 5% 1,000 ML IV SCH (15:09)
[2019-12-21] MEDS: HYDROCORTISONE 100 MG VIAL IV SCH ×2 (15:21→20:26)
[2019-12-22] MEDS: INSULIN REGULAR 100 UNIT/ML SUBCUT SCH ×5 (00:04→20:24)
[2019-12-22] MEDS: HYDROCORTISONE 100 MG VIAL IV SCH ×4 (03:50→20:23)
[2019-12-22] MEDS ORDERED: INSULIN REGULAR 100 UNIT/ML SUBCUT SCH (04:00)
[2019-12-22 04:49] LABS: Allen Test Positive; Pt O2 Delivery Device Ventilator
[2019-12-22 04:50] LABS: ABG Base Excess 0.4 MMOL/L (-2.5-2.5); ABG HCO3 24.8 MMOL/L (20-26); ABG PCO2 35.9 MM HG (35-48); ABG PH 7.438 (7.35-7.45); ABG TCO2 22.1 MMOL/L (23-27)
[2019-12-22 04:52] LABS: Basophils % 0.1 % (0.0-0.8); Hematocrit 31.6 VOL% (35.7-47.0); Immature Granulocytes % 0.4 %; Immature Granulocytes Absolute 0.03 #; Lymphocytes # 0.8 10*3/uL (1.4-4.0); Lymphocytes % 10.6 % (21.3-54.2); Mean Corpuscular HGB Conc 31.6 GM/DL (32-36); Mean Corpuscular Volume 77.1 FL (87-102); Monocytes % 3.5 % (1.7-12.7); Neutrophils % 85.4 % (38.7-73.9); Platelet Count 206 T/CUMM (130-400); Red Cell Distribution Width 23.1 % (9.3-17.3); White Blood Count 7.5 T/CUMM (4-12)
[2019-12-22 04:58] LABS: Calcium 9.4 MG/DL (8.5-10.1); Osmolality,Calculated 263.8 MOS/KG (273-304)
[2019-12-22 06:16] LABS: Platelet Estimate Normal
[2019-12-22 06:17] LABS: Anisocytosis 3+; Macrocytosis Slight; Polychromasia Slight
[2019-12-22] MEDS ORDERED: INSULIN REGULAR 100 UNIT/ML ONE (07:46)
[2019-12-22] MEDS: PANTOPRAZOLE 40 MG VIAL IV SCH (08:45)
[2019-12-22] MEDS: ASPIRIN CHEW 81 MG TABLET PO SCH (08:45)
[2019-12-22] MEDS: ASCORBIC ACID 500 MG TABLET NG SCH ×2 (08:45→20:26)
[2019-12-22] MEDS: ENOXAPARIN 30 MG/0.3 ML SYRINGE SUBCUT SCH (08:50)
[2019-12-22] MEDS: niCARdipine INJ 25 MG in SODIUM CHLORIDE 0.9% 240 ML IV PRN (09:55)
[2019-12-22] MEDS: DEXTROSE 5% 1,000 ML IV SCH ×2 (09:55→11:00)
[2019-12-23] MEDS: INSULIN REGULAR 100 UNIT/ML SUBCUT SCH ×6 (00:04→20:26)
[2019-12-23 04:00] LABS: Basophils % 0.2 % (0.0-0.8); Hematocrit 30.6 VOL% (35.7-47.0); Hemoglobin 9.8 GM/DL (12.0-16.0); Immature Granulocytes % 1.1 %; Immature Granulocytes Absolute 0.13 #; Lymphocytes % 8.6 % (21.3-54.2); Mean Corpuscular Volume 76.1 FL (87-102); Monocytes % 3.9 % (1.7-12.7); NRBC # 0.06 10*3/uL; Neutrophils % 86.2 % (38.7-73.9); Platelet Count 243 T/CUMM (130-400); Red Blood Count 4.02 MC/CUMM (3.8-5.5); Red Cell Distribution Width 23.9 % (9.3-17.3); White Blood Count 11.8 T/CUMM (4-12)
[2019-12-23] MEDS: HYDROCORTISONE 100 MG VIAL IV SCH ×4 (04:00→20:15)
[2019-12-23 04:14] LABS: ABG Base Excess -0.1 MMOL/L (-2.5-2.5); ABG HCO3 24.4 MMOL/L (20-26); ABG Oxygen Saturation 99.5 % (95-100); ABG PCO2 34.6 MM HG (35-48); ABG PH 7.442 (7.35-7.45); ABG TCO2 21.5 MMOL/L (23-27)
[2019-12-23 04:36] LABS: Calcium 9.1 MG/DL (8.5-10.1); Osmolality,Calculated 271.4 MOS/KG (273-304)
[2019-12-23] MEDS: LORazepam INJ 40 MG in DEXTROSE 5% 30 ML IV PRN (06:10)
[2019-12-23] MEDS: ENOXAPARIN 30 MG/0.3 ML SYRINGE SUBCUT SCH (08:50)
[2019-12-23] MEDS: PANTOPRAZOLE 40 MG VIAL IV SCH (08:50)
[2019-12-23] MEDS: ASCORBIC ACID 500 MG TABLET NG SCH ×2 (11:35→20:27)
[2019-12-23] MEDS: ASPIRIN CHEW 81 MG TABLET PO SCH (11:35)
[2019-12-23] MEDS: LEVOFLOXACIN INJ 500 MG in PREMIX 1 EACH IV SCH (11:40)
[2019-12-23] MEDS: niCARdipine INJ 25 MG in SODIUM CHLORIDE 0.9% 240 ML IV PRN ×2 (12:30→16:10)
[2019-12-23 13:13] LABS: ABG Base Excess 4.7 MMOL/L (-2.5-2.5); ABG HCO3 28.6 MMOL/L (20-26); ABG Oxygen Saturation 99.3 % (95-100); ABG PCO2 38.9 MM HG (35-48); ABG PH 7.474 (7.35-7.45); ABG TCO2 25.7 MMOL/L (23-27); Allen Test Positive; Pt O2 Delivery Device Ventilator
[2019-12-23 14:43] LABS: ABG Base Excess 4.8 MMOL/L (-2.5-2.5); ABG HCO3 28.7 MMOL/L (20-26); ABG Oxygen Saturation 97.6 % (95-100); ABG PCO2 35.2 MM HG (35-48); ABG PH 7.507 (7.35-7.45); ABG PO2 85.8 MM HG (80-95); ABG TCO2 25.3 MMOL/L (23-27); Allen Test Positive
[2019-12-24] MEDS: INSULIN REGULAR 100 UNIT/ML SUBCUT SCH ×6 (00:42→20:12)
[2019-12-24] MEDS: HYDROCORTISONE 100 MG VIAL IV SCH ×4 (04:00→21:40)
[2019-12-24 06:24] LABS: Basophils % 0.1 % (0.0-0.8); Eosinophils % 0.1 % (0.00-10.9); Hematocrit 28.2 VOL% (35.7-47.0); Hemoglobin 8.9 GM/DL (12.0-16.0); Immature Granulocytes % 2.6 %; Immature Granulocytes Absolute 0.29 #; Lymphocytes # 1.3 10*3/uL (1.4-4.0); Lymphocytes % 11.2 % (21.3-54.2); Mean Corpuscular HGB Conc 31.6 GM/DL (32-36); Mean Corpuscular Volume 77.5 FL (87-102); Mean Platelet Volume 9.2 FL (9.6-12.0); Monocytes % 5.4 % (1.7-12.7); NRBC # 0.04 10*3/uL; Neutrophils % 80.6 % (38.7-73.9); Platelet Count 243 T/CUMM (130-400); Red Blood Count 3.64 MC/CUMM (3.8-5.5); Red Cell Distribution Width 24.1 % (9.3-17.3); White Blood Count 11.2 T/CUMM (4-12)
[2019-12-24 06:45] LABS: Hypochromasia 1+; Lymphocytes 15 % (20-55); Platelet Estimate Adequate; Segmented Neutrophils 82 % (50-85); Total Cells Counted 100
[2019-12-24 06:48] LABS: Osmolality,Calculated 270.7 MOS/KG (273-304)
[2019-12-24] MEDS ORDERED: NIFEdipine 10 MG CAPSULE PO PRN (08:12)
[2019-12-24] MEDS: LOSARTAN 50 MG TABLET PO SCH (09:30)
[2019-12-24] MEDS: PANTOPRAZOLE 40 MG VIAL IV SCH (09:30)
[2019-12-24] MEDS: ASPIRIN CHEW 81 MG TABLET PO SCH (09:30)
[2019-12-24] MEDS: ENOXAPARIN 30 MG/0.3 ML SYRINGE SUBCUT SCH (09:30)
[2019-12-24] MEDS: carvediloL 25 MG TABLET PO SCH ×2 (09:30→21:39)
[2019-12-24] MEDS: ASCORBIC ACID 500 MG TABLET NG SCH ×2 (09:30→21:39)
[2019-12-24] MEDS: cloNIDine 0.1 MG TABLET PO SCH ×2 (09:30→21:39)
[2019-12-24] MEDS: amLODIPine 10 MG TABLET PO SCH (09:30)
[2019-12-24] MEDS ORDERED: SUCROFERRIC OXYHYDROXIDE 1000 MG PO SCH (12:00)
[2019-12-24] MEDS: CINACALCET 30 MG TABLET PO SCH (16:51)
[2019-12-24] MEDS ORDERED: ALUM/MAG/SIMETH/LIDO VISC 1:1 30 ML BOTTLE PO ONE (23:47)
[2019-12-25] MEDS: INSULIN REGULAR 100 UNIT/ML SUBCUT SCH ×6 (00:58→21:30)
[2019-12-25] MEDS: HYDROCORTISONE 100 MG VIAL IV SCH ×4 (03:44→21:31)
[2019-12-25] MEDS: LEVOFLOXACIN INJ 500 MG in PREMIX 1 EACH IV SCH (08:35)
[2019-12-25] MEDS: PANTOPRAZOLE 40 MG VIAL IV SCH (08:37)
[2019-12-25] MEDS: ENOXAPARIN 30 MG/0.3 ML SYRINGE SUBCUT SCH (08:39)
[2019-12-25] MEDS: ASPIRIN CHEW 81 MG TABLET PO SCH (08:39)
[2019-12-25] MEDS: carvediloL 25 MG TABLET PO SCH ×2 (08:39→21:32)
[2019-12-25] MEDS: cloNIDine 0.1 MG TABLET PO SCH ×2 (08:39→21:32)
[2019-12-25] MEDS: amLODIPine 10 MG TABLET PO SCH (08:40)
[2019-12-25] MEDS: ASCORBIC ACID 500 MG TABLET NG SCH ×2 (08:40→21:32)
[2019-12-25] MEDS: LOSARTAN 50 MG TABLET PO SCH (08:40)
[2019-12-25] MEDS: CINACALCET 30 MG TABLET PO SCH (16:46)
[2019-12-26] MEDS: INSULIN REGULAR 100 UNIT/ML SUBCUT SCH ×6 (01:26→21:25)
[2019-12-26 05:23] LABS: Basophils % 0.1 % (0.0-0.8); Eosinophils % 0.1 % (0.00-10.9); Hematocrit 27.9 VOL% (35.7-47.0); Hemoglobin 8.7 GM/DL (12.0-16.0); Immature Granulocytes Absolute 0.49 #; Lymphocytes % 9.9 % (21.3-54.2); Mean Corpuscular HGB Conc 31.2 GM/DL (32-36); Mean Corpuscular Volume 79.3 FL (87-102); Mean Platelet Volume 9.6 FL (9.6-12.0); Monocytes % 8.4 % (1.7-12.7); NRBC # 0.07 10*3/uL; Neutrophils % 76.5 % (38.7-73.9); Platelet Count 233 T/CUMM (130-400); Red Blood Count 3.52 MC/CUMM (3.8-5.5); Red Cell Distribution Width 24.1 % (9.3-17.3); White Blood Count 9.8 T/CUMM (4-12)
[2019-12-26] MEDS: HYDROCORTISONE 100 MG VIAL IV SCH ×2 (05:28→18:36)
[2019-12-26 05:47] LABS: Band Neutrophils 1 % (0-10); Lymphocytes 12 % (20-55); Nucleated Red Blood Cells 1 (0-5); Segmented Neutrophils 80 % (50-85); Total Cells Counted 100
[2019-12-26 05:48] LABS: Hypochromasia 1+; Platelet Estimate Adequate
[2019-12-26 05:56] LABS: Calcium 7.7 MG/DL (8.5-10.1); Osmolality,Calculated 286.9 MOS/KG (273-304)
[2019-12-26] MEDS: ASPIRIN CHEW 81 MG TABLET PO SCH (12:51)
[2019-12-26] MEDS: cloNIDine 0.1 MG TABLET PO SCH ×2 (12:51→21:25)
[2019-12-26] MEDS: ENOXAPARIN 30 MG/0.3 ML SYRINGE SUBCUT SCH (12:52)
[2019-12-26] MEDS: LOSARTAN 50 MG TABLET PO SCH (12:52)
[2019-12-26] MEDS: PANTOPRAZOLE 40 MG VIAL IV SCH (12:52)
[2019-12-26] MEDS: carvediloL 25 MG TABLET PO SCH ×2 (12:52→21:25)
[2019-12-26] MEDS: amLODIPine 10 MG TABLET PO SCH (12:52)
[2019-12-26] MEDS: ASCORBIC ACID 500 MG TABLET NG SCH ×2 (12:52→21:24)
[2019-12-26] MEDS: CINACALCET 30 MG TABLET PO SCH (16:08)
[2019-12-27] MEDS: INSULIN REGULAR 100 UNIT/ML SUBCUT SCH ×6 (00:57→21:14)
[2019-12-27] MEDS: HYDROCORTISONE 100 MG VIAL IV SCH ×2 (05:22→17:41)
[2019-12-27 05:50] LABS: Basophils % 0.2 % (0.0-0.8); Eosinophils # 0.1 10*3/uL (0.0-0.87); Eosinophils % 0.6 % (0.00-10.9); Hematocrit 26.7 VOL% (35.7-47.0); Hemoglobin 8.3 GM/DL (12.0-16.0); Immature Granulocytes % 4.2 %; Immature Granulocytes Absolute 0.39 #; Lymphocytes # 1.5 10*3/uL (1.4-4.0); Lymphocytes % 16.6 % (21.3-54.2); Mean Corpuscular HGB Conc 31.1 GM/DL (32-36); Mean Corpuscular Volume 80.7 FL (87-102); Mean Platelet Volume 9.3 FL (9.6-12.0); Monocytes % 10.8 % (1.7-12.7); NRBC # 0.06 10*3/uL; Neutrophils % 67.6 % (38.7-73.9); Platelet Count 210 T/CUMM (130-400); Red Blood Count 3.31 MC/CUMM (3.8-5.5); Red Cell Distribution Width 25.8 % (9.3-17.3); White Blood Count 9.3 T/CUMM (4-12)
[2019-12-27 06:07] LABS: Calcium 7.6 MG/DL (8.5-10.1); Osmolality,Calculated 295.1 MOS/KG (273-304)
[2019-12-27 06:24] LABS: Hypochromasia 1+; Platelet Estimate Adequate
[2019-12-27 09:18] LABS: Lymphocytes,Pleural Fluid 90 %; Monocytes,Pleural Fluid 2 %; Neutrophils,Pleural Fluid 8 %
[2019-12-27 09:20] LABS: RBC,Pleural Fluid 7677 T/CUMM
[2019-12-27 09:32] LABS: Total Protein,Body Fluid 3.7 G/DL
[2019-12-27] MEDS: ENOXAPARIN 30 MG/0.3 ML SYRINGE SUBCUT SCH (09:52)
[2019-12-27] MEDS: ASCORBIC ACID 500 MG TABLET NG SCH ×2 (09:53→21:14)
[2019-12-27] MEDS: carvediloL 25 MG TABLET PO SCH ×2 (09:53→21:14)
[2019-12-27] MEDS: amLODIPine 10 MG TABLET PO SCH (09:53)
[2019-12-27] MEDS: cloNIDine 0.1 MG TABLET PO SCH ×2 (09:53→21:14)
[2019-12-27] MEDS: LOSARTAN 50 MG TABLET PO SCH (09:53)
[2019-12-27] MEDS: ASPIRIN CHEW 81 MG TABLET PO SCH (09:53)
[2019-12-27] MEDS: LEVOFLOXACIN INJ 500 MG in PREMIX 1 EACH IV SCH (09:54)
[2019-12-27] MEDS: PANTOPRAZOLE 40 MG VIAL IV SCH (09:55)
[2019-12-27] MEDS ORDERED: GLUCAGON 1 MG VIAL IM PRN (11:23)
[2019-12-27] MEDS ORDERED: DEXTROSE 50% 25 GM/50 ML VIAL IV PRN (11:23)
[2019-12-27 15:13] LABS: Alanine Aminotransferase < 9 U/L (13-56); Albumin 2.4 G/DL (3.4-5.0); Alkaline Phosphatase 242 U/L (45-117); Aspartate Amino Transferase 9 U/L (0-37); Bilirubin,Total < 0.39 MG/DL (0.2-1.0); Blood Urea Nitrogen 47 MG/DL (7-18); Calcium 7.7 MG/DL (8.5-10.1); Estimated Glom Filtration Rate 7 ML/MIN; Glucose 308 MG/DL (74-106); Osmolality,Calculated 289.4 MOS/KG (273-304); Total Protein 6.4 G/DL (6.4-8.3)
[2019-12-27] MEDS: CINACALCET 30 MG TABLET PO SCH (16:59)
[2019-12-28] MEDS: INSULIN REGULAR 100 UNIT/ML SUBCUT SCH ×4 (01:26→13:19)
[2019-12-28] MEDS: HYDROCORTISONE 100 MG VIAL IV SCH (07:07)
[2019-12-28 07:46] VITALS: BP 139/89
[2019-12-28 07:53] LABS: Osmolality,Calculated 284.4 MOS/KG (273-304)
[2019-12-28] MEDS: LOSARTAN 50 MG TABLET PO SCH (08:31)
[2019-12-28] MEDS: amLODIPine 10 MG TABLET PO SCH (08:31)
[2019-12-28] MEDS: PANTOPRAZOLE 40 MG VIAL IV SCH (08:32)
[2019-12-28] MEDS: ASCORBIC ACID 500 MG TABLET NG SCH (08:32)
[2019-12-28] MEDS: carvediloL 25 MG TABLET PO SCH (08:32)
[2019-12-28] MEDS: ASPIRIN CHEW 81 MG TABLET PO SCH (08:32)
[2019-12-28] MEDS: cloNIDine 0.1 MG TABLET PO SCH (08:32)
[2019-12-28] MEDS: ENOXAPARIN 30 MG/0.3 ML SYRINGE SUBCUT SCH (08:33)
== END 2019-12-28 13:10 | disposition home or self-care (01) | DRG 133 ==
LOC: EDUNIT# → EDBD → N.ED 00:15 → N.EDINP 02:47 → SUATTDRO 02:47 → N.ICU 03:12 → N.3E 12-24 14:21
PROVIDERS: ADMIT Internal Medicine; ATTEND Emergency Medicine

== ENCOUNTER 2020-03-13 10:57 | Observation (INO) ==
[2020-03-13 12:13] LABS: Albumin 2.9 G/DL (3.4-5.0); Bilirubin,Total 0.7 MG/DL (0.2-1.0); Calcium 9.7 MG/DL (8.5-10.1); Osmolality,Calculated 297.2 MOS/KG (273-304); Total Protein 8.6 G/DL (6.4-8.3)
[2020-03-13 12:38] LABS: Basophils % 0.5 % (0.0-0.8); Eosinophils # 0.3 10*3/uL (0.0-0.87); Eosinophils % 3.9 % (0.00-10.9); Hematocrit 25.5 VOL% (35.7-47.0); Hemoglobin 7.7 GM/DL (12.0-16.0); Immature Granulocytes % 0.5 %; Immature Granulocytes Absolute 0.04 #; Lymphocytes # 1.7 10*3/uL (1.4-4.0); Lymphocytes % 21.9 % (21.3-54.2); Mean Corpuscular HGB Conc 30.2 GM/DL (32-36); Mean Corpuscular Volume 78.2 FL (87-102); Mean Platelet Volume 9.4 FL (9.6-12.0); Monocytes % 4.5 % (1.7-12.7); Neutrophils % 68.7 % (38.7-73.9); Platelet Count 224 T/CUMM (130-400); Red Blood Count 3.26 MC/CUMM (3.8-5.5); Red Cell Distribution Width 24.7 % (9.3-17.3); White Blood Count 7.7 T/CUMM (4-12)
[2020-03-13 13:00] LABS: Anisocytosis 3+; Macrocytosis 1+; Platelet Estimate Normal
[2020-03-13 13:01] LABS: Polychromasia Slight
[2020-03-13] MEDS ORDERED: DEXTROSE 50% 25 GM/50 ML VIAL IV PRN ×3 (14:36→14:47)
[2020-03-13] MEDS ORDERED: GLUCAGON 1 MG VIAL IM PRN ×3 (14:36→14:47)
[2020-03-13] MEDS ORDERED: ACETAMINOPHEN 325 MG TABLET PO PRN (14:47)
[2020-03-13] MEDS ORDERED: ONDANSETRON 4 MG/2 ML VIAL IV PRN (16:08)
[2020-03-13] MEDS: INSULIN LISPRO 100 UNIT/ML SUBCUT SCH ×2 (21:00→23:28)
[2020-03-13] MEDS: NICOTINE 14 MG/24 HR PATCH TRANSDERM SCH (23:29)
[2020-03-14 06:17] LABS: Basophils % 0.6 % (0.0-0.8); Eosinophils # 0.4 10*3/uL (0.0-0.87); Eosinophils % 5.5 % (0.00-10.9); Hematocrit 25.1 VOL% (35.7-47.0); Hemoglobin 7.6 GM/DL (12.0-16.0); Immature Granulocytes % 0.6 %; Immature Granulocytes Absolute 0.04 #; Lymphocytes # 2.2 10*3/uL (1.4-4.0); Lymphocytes % 29.8 % (21.3-54.2); Mean Corpuscular HGB Conc 30.3 GM/DL (32-36); Mean Corpuscular Volume 79.4 FL (87-102); Mean Platelet Volume 10.9 FL (9.6-12.0); Neutrophils % 58.5 % (38.7-73.9); Platelet Count 259 T/CUMM (130-400); Red Blood Count 3.16 MC/CUMM (3.8-5.5); Red Cell Distribution Width 23.9 % (9.3-17.3); White Blood Count 7.2 T/CUMM (4-12)
[2020-03-14 06:38] LABS: Osmolality,Calculated 292.7 MOS/KG (273-304)
[2020-03-14 06:48] LABS: Platelet Estimate Normal
[2020-03-14 06:49] LABS: Hypochromasia 1+; Polychromasia Slight
[2020-03-14 06:50] LABS: Anisocytosis 3+
[2020-03-14] MEDS: INSULIN LISPRO 100 UNIT/ML SUBCUT SCH ×2 (08:55→12:46)
[2020-03-14] MEDS: NICOTINE 14 MG/24 HR PATCH TRANSDERM SCH (08:55)
[2020-03-14 11:37] VITALS: BP 177/90
[2020-03-14] MEDS ORDERED: CINACALCET 30 MG TABLET PO SCH (17:00)
[2020-03-14] MEDS ORDERED: SEVELAMER CARBONATE 800 MG TABLET PO SCH (17:00)
[2020-03-14] MEDS ORDERED: carvediloL 25 MG TABLET PO SCH (21:00)
[2020-03-14] MEDS ORDERED: cloNIDine 0.1 MG TABLET PO SCH (21:00)
[2020-03-14] MEDS ORDERED: INSULIN GLARGINE 100 UNIT/ML SUBCUT SCH (21:00)
[2020-03-15] MEDS ORDERED: amLODIPine 10 MG TABLET PO SCH (09:00)
[2020-03-15] MEDS ORDERED: LOSARTAN 50 MG TABLET PO SCH (09:00)
== END 2020-03-14 16:20 | disposition home or self-care (01) ==
LOC: N.EDINP 10:57 → N.ED 10:57 → N.EDINP 17:09 → N.3E 19:26
PROVIDERS: ADMIT Hospitalist; ATTEND Hospitalist

== ENCOUNTER 2020-03-30 13:38 | Observation (INO) ==
[2020-03-30 15:47] LABS: Basophils % 0.5 % (0.0-0.8); Eosinophils # 0.1 10*3/uL (0.0-0.87); Eosinophils % 1.9 % (0.00-10.9); Hematocrit 26.8 VOL% (35.7-47.0); Hemoglobin 8.2 GM/DL (12.0-16.0); Immature Granulocytes % 0.5 %; Immature Granulocytes Absolute 0.03 #; Lymphocytes # 1.4 10*3/uL (1.4-4.0); Lymphocytes % 21.8 % (21.3-54.2); Mean Corpuscular HGB Conc 30.6 GM/DL (32-36); Mean Corpuscular Volume 77.9 FL (87-102); Mean Platelet Volume 9.5 FL (9.6-12.0); Monocytes % 4.2 % (1.7-12.7); Neutrophils % 71.1 % (38.7-73.9); Platelet Count 218 T/CUMM (130-400); Red Blood Count 3.44 MC/CUMM (3.8-5.5); White Blood Count 6.5 T/CUMM (4-12)
[2020-03-30 15:58] LABS: INR 1.1; PT Patient Result 11.3 SECS (9.8-11.9)
[2020-03-30 16:06] LABS: Albumin 3.1 G/DL (3.4-5.0); Bilirubin,Total 0.6 MG/DL (0.2-1.0)
[2020-03-30] MEDS ORDERED: cefTRIAXone 1,000 MG in SODIUM CHLORIDE 0.9% 100 ML IV STA (16:16)
[2020-03-30] MEDS: INSULIN LISPRO 100 UNIT/ML SUBCUT SCH (20:07)
[2020-03-30] MEDS ORDERED: INSULIN GLARGINE 100 UNIT/ML SUBCUT SCH (21:00)
[2020-03-30] MEDS: cloNIDine 0.1 MG TABLET PO SCH (21:38)
[2020-03-30] MEDS: SEVELAMER CARBONATE 800 MG TABLET PO SCH (21:39)
[2020-03-30] MEDS: carvediloL 25 MG TABLET PO SCH (21:39)
[2020-03-31] MEDS: cloNIDine 0.1 MG TABLET PO SCH (08:27)
[2020-03-31] MEDS: SEVELAMER CARBONATE 800 MG TABLET PO SCH ×2 (08:28→11:40)
[2020-03-31] MEDS: carvediloL 25 MG TABLET PO SCH (08:28)
[2020-03-31] MEDS: INSULIN LISPRO 100 UNIT/ML SUBCUT SCH ×2 (08:55→11:36)
[2020-03-31] MEDS ORDERED: amLODIPine 10 MG TABLET PO SCH (09:00)
[2020-03-31] MEDS ORDERED: LOSARTAN 50 MG TABLET PO SCH ×2 (09:00)
[2020-03-31 11:55] VITALS: BP 128/74
== END 2020-03-31 11:55 | disposition home or self-care (01) ==
LOC: N.ED 13:38 → N.EDINP 13:38 → N.5E 17:09
PROVIDERS: ADMIT Hospitalist; ATTEND Hospitalist

== ENCOUNTER 2020-07-15 11:08 | Inpatient (IN) ==
[2020-07-15] MEDS ORDERED: niCARdipine INJ 25 MG in SODIUM CHLORIDE 0.9% 240 ML IV PRN (11:31)
[2020-07-15] MEDS ORDERED: niCARdipine 25 MG/10 ML VIAL IV ONE (11:55)
[2020-07-15 11:58] LABS: Basophils % 0.3 % (0.0-0.8); Eosinophils # 0.4 10*3/uL (0.0-0.87); Eosinophils % 2.5 % (0.00-10.9); Immature Granulocytes % 0.5 %; Immature Granulocytes Absolute 0.07 #; Lymphocytes # 1.3 10*3/uL (1.4-4.0); Lymphocytes % 9.4 % (21.3-54.2); Mean Corpuscular Volume 78.2 FL (87-102); Monocytes % 5.4 % (1.7-12.7); Neutrophils % 81.9 % (38.7-73.9); Platelet Count 188 T/CUMM (130-400); Red Blood Count 3.71 MC/CUMM (3.8-5.5); Red Cell Distribution Width 27.4 % (9.3-17.3); White Blood Count 13.9 T/CUMM (4-12)
[2020-07-15 12:05] LABS: PT Patient Result 11.2 SECS (9.8-11.9); Partial Thromboplastin Time 29.9 SECS (23.9-33.8)
[2020-07-15 12:25] LABS: Ferritin 1445.4 ng/ml (8-252)
[2020-07-15 12:34] LABS: Platelet Estimate Normal
[2020-07-15 12:35] LABS: Albumin 3.4 G/DL (3.4-5.0); Anisocytosis 3+; Bilirubin,Total 1.5 MG/DL (0.2-1.0); Calcium 8.5 MG/DL (8.5-10.1); Hypochromasia 2+; Osmolality,Calculated 289.8 MOS/KG (273-304); Poikilocytosis Slight; Polychromasia Slight; Total Protein 8.8 G/DL (6.4-8.3)
[2020-07-15] MEDS ORDERED: ALBUTEROL/IPRATROPIUM 3 ML NEB RESP TX STA (13:12)
[2020-07-15] MEDS ORDERED: GLUCAGON 1 MG VIAL IM PRN ×2 (13:18)
[2020-07-15] MEDS ORDERED: ONDANSETRON 4 MG/2 ML VIAL IV PRN (13:18)
[2020-07-15] MEDS ORDERED: DEXTROSE 50% 25 GM/50 ML VIAL IV PRN ×2 (13:18)
[2020-07-15] MEDS ORDERED: ACETAMINOPHEN 500 MG TABLET ONE (13:28)
[2020-07-15] MEDS ORDERED: ENOXAPARIN 30 MG/0.3 ML SYRINGE SUBCUT SCH (13:30)
[2020-07-15] MEDS: ACETAMINOPHEN 325 MG TABLET PO PRN (13:31)
[2020-07-15] MEDS: ALBUTEROL/IPRATROPIUM 3 ML NEB RESP TX SCH ×3 (14:02→23:50)
[2020-07-15] MEDS ORDERED: NALOXONE 0.4 MG/ML VIAL ONE (14:24)
[2020-07-15] MEDS: cefTRIAXone 1,000 MG in SYRINGE 1 EACH IV SCH (14:42)
[2020-07-15] MEDS: AZITHROMYCIN INJ 500 MG in SODIUM CHLORIDE 0.9% 250 ML IV SCH (14:53)
[2020-07-15] MEDS ORDERED: hydrALAZINE 20 MG/1 ML VIAL IV PRN (16:31)
[2020-07-15] MEDS: amLODIPine 10 MG TABLET PO SCH (16:48)
[2020-07-15] MEDS: LOSARTAN 50 MG TABLET PO SCH (16:48)
[2020-07-15] MEDS ORDERED: guaiFENesin/CODEINE 5 ML LIQUID PO PRN (17:34)
[2020-07-15] MEDS ORDERED: ALBUTEROL/IPRATROPIUM 3 ML NEB RESP TX PRN (17:36)
[2020-07-15] MEDS ORDERED: ALBUTEROL/IPRATROPIUM 3 ML NEB RESP TX SCH (19:00)
[2020-07-15] MEDS: INSULIN LISPRO 100 UNIT/ML SUBCUT SCH ×2 (19:12→20:44)
[2020-07-15] MEDS: carvediloL 25 MG TABLET PO SCH (20:45)
[2020-07-15] MEDS: cloNIDine 0.1 MG TABLET PO SCH (20:45)
[2020-07-16] MEDS: ALBUTEROL/IPRATROPIUM 3 ML NEB RESP TX SCH ×5 (03:15→18:58)
[2020-07-16 06:14] LABS: Basophils # 0.1 10*3/uL (0.0-0.2); Basophils % 0.4 % (0.0-0.8); Eosinophils # 0.3 10*3/uL (0.0-0.87); Eosinophils % 2.3 % (0.00-10.9); Hematocrit 24.1 VOL% (35.7-47.0); Hemoglobin 7.6 GM/DL (12.0-16.0); Immature Granulocytes % 0.5 %; Immature Granulocytes Absolute 0.06 #; Lymphocytes % 23.5 % (21.3-54.2); Mean Corpuscular HGB Conc 31.5 GM/DL (32-36); Mean Corpuscular Volume 77.5 FL (87-102); Monocytes % 5.7 % (1.7-12.7); Neutrophils % 67.6 % (38.7-73.9); Platelet Count 172 T/CUMM (130-400); Red Blood Count 3.11 MC/CUMM (3.8-5.5); Red Cell Distribution Width 27.1 % (9.3-17.3); White Blood Count 12.7 T/CUMM (4-12)
[2020-07-16 06:45] LABS: Calcium 8.5 MG/DL (8.5-10.1); Osmolality,Calculated 284.2 MOS/KG (273-304)
[2020-07-16 07:32] LABS: Platelet Estimate Normal
[2020-07-16 07:33] LABS: Anisocytosis 3+; Hypochromasia 1+; Macrocytosis 1+; Poikilocytosis Slight; Polychromasia Slight; Target Cells Few
[2020-07-16 07:34] LABS: Helmet Cells Few; Spherocytes Few
[2020-07-16] MEDS: INSULIN LISPRO 100 UNIT/ML SUBCUT SCH ×4 (09:42→21:59)
[2020-07-16] MEDS: carvediloL 25 MG TABLET PO SCH ×2 (09:47→21:59)
[2020-07-16] MEDS: cloNIDine 0.1 MG TABLET PO SCH ×2 (09:47→21:59)
[2020-07-16] MEDS: LOSARTAN 50 MG TABLET PO SCH (09:48)
[2020-07-16] MEDS: amLODIPine 10 MG TABLET PO SCH (09:48)
[2020-07-16] MEDS: cefTRIAXone 1,000 MG in SYRINGE 1 EACH IV SCH (15:12)
[2020-07-16] MEDS: AZITHROMYCIN INJ 500 MG in SODIUM CHLORIDE 0.9% 250 ML IV SCH (15:13)
[2020-07-16] MEDS: ACETAMINOPHEN 325 MG TABLET PO PRN (23:42)
[2020-07-17] MEDS: ALBUTEROL/IPRATROPIUM 3 ML NEB RESP TX SCH ×5 (02:45→14:03)
[2020-07-17 08:10] LABS: Basophils % 0.4 % (0.0-0.8); Eosinophils # 0.5 10*3/uL (0.0-0.87); Eosinophils % 5.9 % (0.00-10.9); Hemoglobin 7.9 GM/DL (12.0-16.0); Immature Granulocytes % 0.4 %; Immature Granulocytes Absolute 0.03 #; Lymphocytes # 1.7 10*3/uL (1.4-4.0); Lymphocytes % 21.5 % (21.3-54.2); Mean Corpuscular HGB Conc 31.6 GM/DL (32-36); Mean Corpuscular Volume 77.2 FL (87-102); Monocytes % 5.7 % (1.7-12.7); Neutrophils % 66.1 % (38.7-73.9); Platelet Count 203 T/CUMM (130-400); Red Blood Count 3.24 MC/CUMM (3.8-5.5); Red Cell Distribution Width 27.9 % (9.3-17.3)
[2020-07-17 08:21] LABS: Calcium 9.4 MG/DL (8.5-10.1); Osmolality,Calculated 287.5 MOS/KG (273-304)
[2020-07-17 08:26] LABS: White Blood Count 7.9 T/CUMM (4-12)
[2020-07-17 08:44] LABS: Hypochromasia 4+; Microcytosis 3+; Ovalocytes Few; Polychromasia Slight; Schistocytes Few
[2020-07-17 08:45] LABS: Platelet Estimate Normal
[2020-07-17] MEDS: carvediloL 25 MG TABLET PO SCH (09:11)
[2020-07-17] MEDS: cloNIDine 0.1 MG TABLET PO SCH (09:11)
[2020-07-17] MEDS: amLODIPine 10 MG TABLET PO SCH (09:12)
[2020-07-17] MEDS: LOSARTAN 50 MG TABLET PO SCH (09:12)
[2020-07-17] MEDS: INSULIN LISPRO 100 UNIT/ML SUBCUT SCH ×2 (09:15→12:32)
[2020-07-17 11:56] VITALS: BP 120/71
== END 2020-07-17 17:19 | disposition home or self-care (01) | DRG 139 ==
LOC: N.ED 11:08 → N.EDINP 14:18 → N.TELEN 15:31
PROVIDERS: ADMIT Internal Medicine; ATTEND Internal Medicine

== ENCOUNTER 2020-07-20 23:15 | Inpatient (IN) ==
[2020-07-20] MEDS ORDERED: NITROGLYCERIN 2% OINT 1 INCH/GM PACK TOP STA (23:38)
[2020-07-20] MEDS ORDERED: MORPHINE 4 MG/1 ML VIAL IV ONE (23:38)
[2020-07-20] MEDS ORDERED: NITROGLYCERIN SL 0.4 MG TABLET SL STA (23:38)
[2020-07-20] MEDS ORDERED: ASPIRIN 325 MG TABLET PO STA (23:38)
[2020-07-20] MEDS ORDERED: ONDANSETRON 4 MG/2 ML VIAL IV ONE (23:38)
[2020-07-21 00:12] LABS: Basophils # 0.1 10*3/uL (0.0-0.2); Basophils % 0.3 % (0.0-0.8); Eosinophils # 0.4 10*3/uL (0.0-0.87); Hematocrit 29.4 VOL% (35.7-47.0); Hemoglobin 8.9 GM/DL (12.0-16.0); Immature Granulocytes % 0.6 %; Immature Granulocytes Absolute 0.11 #; Lymphocytes # 2.5 10*3/uL (1.4-4.0); Lymphocytes % 13.8 % (21.3-54.2); Mean Corpuscular HGB Conc 30.3 GM/DL (32-36); Mean Platelet Volume 9.1 FL (9.6-12.0); Monocytes % 4.3 % (1.7-12.7); NRBC # 0.03 10*3/uL; Red Blood Count 3.72 MC/CUMM (3.8-5.5); Red Cell Distribution Width 28.3 % (9.3-17.3)
[2020-07-21 00:17] LABS: ABG Base Excess 3.3 MMOL/L (-2.5-2.5); ABG HCO3 28.4 MMOL/L (20-26); ABG Oxygen Saturation 97.2 % (95-100); ABG PCO2 45.8 MM HG (35-48); ABG PH 7.411 (7.35-7.45); ABG PO2 100.2 MM HG (80-95); ABG TCO2 29.9 MMOL/L (23-27); Allen Test Positive
[2020-07-21 00:17] LABS: White Blood Count 18.2 T/CUMM (4-12)
[2020-07-21 00:18] LABS: Platelet Count 279 T/CUMM (130-400)
[2020-07-21 00:31] LABS: Alanine Aminotransferase 25 U/L (13-56); Albumin 3.1 G/DL (3.4-5.0); Alkaline Phosphatase 100 U/L (45-117); Aspartate Amino Transferase 22 U/L (0-37); Blood Urea Nitrogen 31 MG/DL (7-18); Estimated Glom Filtration Rate 5 ML/MIN; Glucose 123 MG/DL (74-106); Osmolality,Calculated 284.5 MOS/KG (273-304); Total Protein 8.9 G/DL (6.4-8.3); Troponin I 0.045 NG/ML (0.00-0.045)
[2020-07-21] MEDS ORDERED: VANCOMYCIN INJ 1,000 MG in SODIUM CHLORIDE 0.9% 250 ML IV STA (00:36)
[2020-07-21] MEDS ORDERED: PIPERACILLIN/TAZOBACTAM 3,375 MG in SODIUM CHLORIDE 0.9% 100 ML IV STA (00:36)
[2020-07-21] MEDS ORDERED: LABETALOL 20 MG/4 ML SYRINGE IV STA (00:56)
[2020-07-21 01:14] LABS: PT Patient Result 11.2 SECS (9.8-11.9)
[2020-07-21] MEDS ORDERED: DEXTROSE 50% 25 GM/50 ML VIAL IV PRN (01:49)
[2020-07-21] MEDS ORDERED: diphenhydrAMINE CAP 25 MG CAPSULE PO PRN (01:49)
[2020-07-21] MEDS ORDERED: MORPHINE 4 MG/1 ML VIAL IV PRN (01:49)
[2020-07-21] MEDS ORDERED: ONDANSETRON 4 MG/2 ML VIAL IV PRN (01:49)
[2020-07-21] MEDS ORDERED: GLUCAGON 1 MG VIAL IM PRN (01:49)
[2020-07-21] MEDS ORDERED: NICOTINE 21 MG/24 HR PATCH TRANSDERM PRN (01:49)
[2020-07-21 02:27] LABS: Hypochromasia 4+; Platelet Estimate Normal
[2020-07-21 02:28] LABS: Microcytosis 1+; Polychromasia Few; Target Cells Few
[2020-07-21] MEDS: hydrALAZINE 20 MG/1 ML VIAL IV PRN ×2 (04:52→15:19)
[2020-07-21] MEDS ORDERED: VANCOMYCIN INJ 750 MG in SODIUM CHLORIDE 0.9% 250 ML IV PRN (04:54)
[2020-07-21] MEDS ORDERED: VANCOMYCIN INJ 1,500 MG in SODIUM CHLORIDE 0.9% 500 ML IV ONE (05:30)
[2020-07-21] MEDS ORDERED: VANCOMYCIN INJ 1,500 MG in SODIUM CHLORIDE 0.9% 250 ML IV ONE (05:30)
[2020-07-21] MEDS ORDERED: CLORAZEPATE 3.75 MG TABLET PO ONE (05:50)
[2020-07-21 06:16] LABS: ABG Base Excess 5.9 MMOL/L (-2.5-2.5); ABG HCO3 29.8 MMOL/L (20-26); ABG Oxygen Saturation 94.9 % (95-100); ABG PH 7.466 (7.35-7.45); ABG PO2 77.6 MM HG (80-95); ABG TCO2 27.7 MMOL/L (23-27); Allen Test Positive; Pt O2 Delivery Device BIPAP
[2020-07-21 06:17] LABS: Ferritin 1383.2 ng/ml (8-252)
[2020-07-21] MEDS: INSULIN REGULAR 100 UNIT/ML SUBCUT SCH ×4 (09:50→20:11)
[2020-07-21] MEDS: guaiFENesin 200 MG/10 ML UDCUP PO PRN ×2 (11:27→17:06)
[2020-07-21] MEDS ORDERED: VANCOMYCIN INJ 500 MG in SODIUM CHLORIDE 0.9% 100 ML IV PRN (13:49)
[2020-07-21] MEDS: PIPERACILLIN/TAZOBACTAM 3,375 MG in SODIUM CHLORIDE 0.9% 100 ML IV SCH (15:15)
[2020-07-21] MEDS ORDERED: guaiFENesin/CODEINE 5 ML LIQUID PO PRN (16:53)
[2020-07-21] MEDS: ACETAMINOPHEN 325 MG TABLET PO PRN (17:07)
[2020-07-21] MEDS ORDERED: VANCOMYCIN INJ 500 MG in SODIUM CHLORIDE 0.9% 100 ML IV ONE (20:00)
[2020-07-22 01:10] LABS: Allen Test Positive; Pt O2 Delivery Device Other
[2020-07-22 01:11] LABS: ABG Base Excess 5.4 MMOL/L (-2.5-2.5); ABG HCO3 29.2 MMOL/L (20-26); ABG Oxygen Saturation 92.6 % (95-100); ABG PCO2 38.2 MM HG (35-48); ABG PH 7.489 (7.35-7.45); ABG PO2 63.4 MM HG (80-95); ABG TCO2 26.9 MMOL/L (23-27)
[2020-07-22] MEDS: PIPERACILLIN/TAZOBACTAM 3,375 MG in SODIUM CHLORIDE 0.9% 100 ML IV SCH ×2 (01:39→12:22)
[2020-07-22] MEDS: ACETAMINOPHEN 325 MG TABLET PO PRN (01:41)
[2020-07-22 06:29] LABS: Basophils # 0.1 10*3/uL (0.0-0.2); Basophils % 0.3 % (0.0-0.8); Eosinophils # 0.1 10*3/uL (0.0-0.87); Eosinophils % 0.6 % (0.00-10.9); Hematocrit 27.8 VOL% (35.7-47.0); Hemoglobin 8.6 GM/DL (12.0-16.0); Immature Granulocytes % 1.3 %; Immature Granulocytes Absolute 0.28 #; Lymphocytes # 1.9 10*3/uL (1.4-4.0); Mean Corpuscular HGB Conc 30.9 GM/DL (32-36); Mean Corpuscular Volume 78.8 FL (87-102); Monocytes % 4.3 % (1.7-12.7); Neutrophils % 84.5 % (38.7-73.9); Platelet Count 205 T/CUMM (130-400); Red Blood Count 3.53 MC/CUMM (3.8-5.5); Red Cell Distribution Width 28.1 % (9.3-17.3); White Blood Count 21.2 T/CUMM (4-12)
[2020-07-22 06:48] LABS: Osmolality,Calculated 276.8 MOS/KG (273-304)
[2020-07-22 06:50] LABS: Hypochromasia 2+; Lymphocytes 9 % (20-55); Microcytosis 1+; Platelet Estimate Adequate; Segmented Neutrophils 90 % (50-85); Total Cells Counted 100
[2020-07-22] MEDS: INSULIN REGULAR 100 UNIT/ML SUBCUT SCH ×4 (08:18→20:07)
[2020-07-22] MEDS ORDERED: BENZONATATE 100 MG CAPSULE PO PRN (12:15)
[2020-07-22] MEDS ORDERED: ALBUTEROL 2.5 MG/3 ML NEB RESP TX PRN (12:15)
[2020-07-22] MEDS: amLODIPine 10 MG TABLET PO SCH (12:39)
[2020-07-22] MEDS: MULTIVITAMIN (BEROCCA) TABLET PO SCH (12:39)
[2020-07-22] MEDS: carvediloL 25 MG TABLET PO SCH (16:22)
[2020-07-22] MEDS: SEVELAMER CARBONATE 800 MG TABLET PO SCH (16:22)
[2020-07-23] MEDS: PIPERACILLIN/TAZOBACTAM 3,375 MG in SODIUM CHLORIDE 0.9% 100 ML IV SCH ×2 (00:07→14:17)
[2020-07-23 06:40] LABS: Basophils # 0.1 10*3/uL (0.0-0.2); Basophils % 0.4 % (0.0-0.8); Eosinophils # 0.8 10*3/uL (0.0-0.87); Eosinophils % 6.8 % (0.00-10.9); Hematocrit 24.6 VOL% (35.7-47.0); Hemoglobin 7.7 GM/DL (12.0-16.0); Immature Granulocytes % 0.9 %; Immature Granulocytes Absolute 0.11 #; Lymphocytes # 2.2 10*3/uL (1.4-4.0); Lymphocytes % 18.5 % (21.3-54.2); Mean Corpuscular HGB Conc 31.3 GM/DL (32-36); Mean Corpuscular Volume 77.4 FL (87-102); Monocytes % 3.2 % (1.7-12.7); Neutrophils % 70.2 % (38.7-73.9); Platelet Count 210 T/CUMM (130-400); Red Blood Count 3.18 MC/CUMM (3.8-5.5); Red Cell Distribution Width 27.1 % (9.3-17.3)
[2020-07-23 06:42] LABS: White Blood Count 12.1 T/CUMM (4-12)
[2020-07-23 06:58] LABS: Hypochromasia 2+; Microcytosis 1+; Platelet Estimate Adequate
[2020-07-23 07:11] LABS: Calcium 9.4 MG/DL (8.5-10.1); Osmolality,Calculated 279.2 MOS/KG (273-304)
[2020-07-23] MEDS: INSULIN REGULAR 100 UNIT/ML SUBCUT SCH ×4 (07:20→20:03)
[2020-07-23] MEDS: carvediloL 25 MG TABLET PO SCH ×2 (08:00→16:29)
[2020-07-23] MEDS: SEVELAMER CARBONATE 800 MG TABLET PO SCH ×3 (08:00→16:29)
[2020-07-23] MEDS ORDERED: VANCOMYCIN INJ 500 MG in SODIUM CHLORIDE 0.9% 100 ML IV ONE (09:00)
[2020-07-23] MEDS: MULTIVITAMIN (BEROCCA) TABLET PO SCH (12:22)
[2020-07-23] MEDS: LOSARTAN 50 MG TABLET PO SCH (12:22)
[2020-07-23] MEDS: amLODIPine 10 MG TABLET PO SCH (12:23)
[2020-07-24] MEDS: PIPERACILLIN/TAZOBACTAM 3,375 MG in SODIUM CHLORIDE 0.9% 100 ML IV SCH ×2 (01:14→13:06)
[2020-07-24 06:11] LABS: Basophils % 0.5 % (0.0-0.8); Eosinophils # 0.8 10*3/uL (0.0-0.87); Eosinophils % 10.5 % (0.00-10.9); Hematocrit 26.6 VOL% (35.7-47.0); Hemoglobin 8.3 GM/DL (12.0-16.0); Immature Granulocytes % 0.4 %; Immature Granulocytes Absolute 0.03 #; Lymphocytes # 2.3 10*3/uL (1.4-4.0); Lymphocytes % 29.2 % (21.3-54.2); Mean Corpuscular HGB Conc 31.2 GM/DL (32-36); Monocytes % 6.1 % (1.7-12.7); NRBC # 0.02 10*3/uL; Neutrophils % 53.3 % (38.7-73.9); Platelet Count 200 T/CUMM (130-400); Red Blood Count 3.41 MC/CUMM (3.8-5.5); White Blood Count 7.9 T/CUMM (4-12)
[2020-07-24 06:33] LABS: Hypochromasia 1+; Microcytosis 1+; Ovalocytes Slight; Platelet Estimate Adequate
[2020-07-24 06:44] LABS: Calcium 9.3 MG/DL (8.5-10.1); Osmolality,Calculated 273.4 MOS/KG (273-304)
[2020-07-24 06:48] LABS: Calcium 9.2 MG/DL (8.5-10.1); Osmolality,Calculated 270.7 MOS/KG (273-304)
[2020-07-24] MEDS: MULTIVITAMIN (BEROCCA) TABLET PO SCH (09:25)
[2020-07-24] MEDS: amLODIPine 10 MG TABLET PO SCH (09:25)
[2020-07-24] MEDS: SEVELAMER CARBONATE 800 MG TABLET PO SCH ×3 (09:25→16:10)
[2020-07-24] MEDS: INSULIN REGULAR 100 UNIT/ML SUBCUT SCH ×3 (09:25→16:10)
[2020-07-24] MEDS: carvediloL 25 MG TABLET PO SCH ×2 (09:26→16:09)
[2020-07-24] MEDS: LOSARTAN 50 MG TABLET PO SCH (09:26)
[2020-07-24 15:35] VITALS: BP 93/52
== END 2020-07-24 17:10 | disposition home or self-care (01) | DRG 194 ==
LOC: N.ED 23:15 → N.EDINP 07-21 01:49 → N.TELEN 07-21 02:25
PROVIDERS: ADMIT Internal Medicine; ATTEND Internal Medicine

== ENCOUNTER 2021-01-09 07:09 | Observation (INO) ==
[2021-01-09 08:47] LABS: Basophils # 0.1 10*3/uL (0.0-0.2); Basophils % 0.5 % (0.0-0.8); Eosinophils # 0.2 10*3/uL (0.0-0.87); Eosinophils % 1.6 % (0.00-10.9); Hematocrit 29.7 VOL% (35.7-47.0); Hemoglobin 9.2 GM/DL (12.0-16.0); Immature Granulocytes % 0.7 %; Lymphocytes # 2.4 10*3/uL (1.4-4.0); Mean Corpuscular Volume 85.8 FL (87-102); Mean Platelet Volume 9.8 FL (9.6-12.0); Monocytes % 5.8 % (1.7-12.7); NRBC # 0.03 10*3/uL; Neutrophils % 75.4 % (38.7-73.9); Platelet Count 244 T/CUMM (130-400); Red Blood Count 3.46 MC/CUMM (3.8-5.5); Red Cell Distribution Width 24.3 % (9.3-17.3); White Blood Count 14.9 T/CUMM (4-12)
[2021-01-09 08:58] LABS: PT Patient Result 11.5 SECS (10.5-12.0); Partial Thromboplastin Time 24.8 SECS (23.9-33.8)
[2021-01-09 09:05] LABS: Hypochromasia 2+
[2021-01-09 09:06] LABS: Microcytosis 2+; Platelet Estimate Normal; Polychromasia Slight
[2021-01-09 09:16] LABS: Albumin 3.3 G/DL (3.4-5.0); Bilirubin,Total 0.8 MG/DL (0.2-1.0); Osmolality,Calculated 284.7 MOS/KG (273-304); Potassium 4.6 MMOL/L (3.5-5.1)
[2021-01-09] MEDS ORDERED: DEXTROSE 50% 25 GM/50 ML VIAL IV PRN (11:28)
[2021-01-09] MEDS ORDERED: ONDANSETRON 4 MG/2 ML VIAL IV PRN (11:28)
[2021-01-09] MEDS ORDERED: ALBUTEROL/IPRATROPIUM 3 ML NEB RESP TX PRN (11:28)
[2021-01-09] MEDS ORDERED: ACETAMINOPHEN 325 MG TABLET PO PRN (11:28)
[2021-01-09] MEDS ORDERED: GLUCAGON 1 MG VIAL IM PRN (11:28)
[2021-01-09 18:10] VITALS: BP 132/82
[2021-01-10] MEDS ORDERED: PANTOPRAZOLE 40 MG TABLET PO SCH (09:00)
== END 2021-01-09 12:27 | disposition home or self-care (01) ==
LOC: N.ED 07:09 → N.EDINP 07:09
PROVIDERS: ADMIT Internal Medicine; ATTEND Internal Medicine

== ENCOUNTER 2021-03-10 14:59 | Inpatient (IN) ==
[2021-03-10] MEDS ORDERED: hydrALAZINE 20 MG/1 ML VIAL ONE (16:33)
[2021-03-10] MEDS ORDERED: ONDANSETRON 4 MG/2 ML VIAL ONE (16:33)
[2021-03-10] MEDS ORDERED: hydrALAZINE 20 MG/1 ML VIAL IV STA (16:47)
[2021-03-10] MEDS ORDERED: ONDANSETRON 4 MG/2 ML VIAL IV STA (16:47)
[2021-03-10] MEDS ORDERED: cefTRIAXone 1,000 MG in SODIUM CHLORIDE 0.9% 100 ML IV STA (17:00)
[2021-03-10 17:07] LABS: ABG Oxygen Saturation 87.7 % (95-100); ABG PCO2 39.3 MM HG (35-48); ABG PH 7.433 (7.35-7.45); ABG PO2 57.8 MM HG (80-95); ABG TCO2 24.1 MMOL/L (23-27)
[2021-03-10] MEDS ORDERED: AZITHROMYCIN INJ 500 MG in SODIUM CHLORIDE 0.9% 250 ML IV STA (17:09)
[2021-03-10] MEDS ORDERED: DEXAMETHASONE 4 MG/1 ML VIAL IV STA (17:09)
[2021-03-10 17:45] LABS: Basophils % 0.5 % (0.0-0.8); Hematocrit 34.3 VOL% (35.7-47.0); Hemoglobin 10.4 GM/DL (12.0-16.0); Immature Granulocytes Absolute 0.06 #; Lymphocytes # 0.4 10*3/uL (1.4-4.0); Lymphocytes % 6.7 % (21.3-54.2); Mean Corpuscular HGB Conc 30.3 GM/DL (32-36); Mean Corpuscular Volume 86.6 FL (87-102); Monocytes % 2.7 % (1.7-12.7); NRBC # 0.02 10*3/uL; Neutrophils % 89.1 % (38.7-73.9); Platelet Count 166 T/CUMM (130-400); Red Blood Count 3.96 MC/CUMM (3.8-5.5); Red Cell Distribution Width 19.6 % (9.3-17.3)
[2021-03-10 18:29] LABS: Albumin 3.3 G/DL (3.4-5.0); Bilirubin,Total 0.9 MG/DL (0.20-1.00); Calcium 9.2 MG/DL (8.5-10.1); Ferritin 15405.6 ng/ml (8-252); Osmolality,Calculated 274.7 MOS/KG (273-304); Potassium 3.7 MMOL/L (3.5-5.1); Total Protein 9.7 G/DL (6.4-8.2)
[2021-03-10] MEDS ORDERED: ONDANSETRON 4 MG/2 ML VIAL IV PRN (20:30)
[2021-03-10] MEDS ORDERED: MELATONIN 3 MG TABLET PO PRN (20:30)
[2021-03-10] MEDS ORDERED: ZALEPLON 5 MG CAPSULE PO PRN (20:30)
[2021-03-10] MEDS ORDERED: ENOXAPARIN 30 MG/0.3 ML SYRINGE SUBCUT SCH (20:30)
[2021-03-10] MEDS ORDERED: DEXTROSE 50% 25 GM/50 ML VIAL IV PRN (20:30)
[2021-03-10] MEDS ORDERED: GLUCAGON 1 MG VIAL IM PRN (20:30)
[2021-03-10] MEDS ORDERED: guaiFENesin/DM ER 600-30 MG TABLET PO PRN (20:30)
[2021-03-10 21:09] LABS: PT Patient Result 11.7 SECS (10.5-12.0)
[2021-03-10] MEDS: cloNIDine 0.1 MG TABLET PO SCH (21:29)
[2021-03-10] MEDS: INSULIN REGULAR 100 UNIT/ML SUBCUT SCH (21:29)
[2021-03-10] MEDS: ASCORBIC ACID 500 MG TABLET PO SCH (21:30)
[2021-03-10] MEDS: FAMOTIDINE 20 MG TABLET PO SCH (21:30)
[2021-03-11 04:08] LABS: Basophils % 0.2 % (0.0-0.8); Hematocrit 27.1 VOL% (35.7-47.0); Hemoglobin 8.4 GM/DL (12.0-16.0); Immature Granulocytes % 1.1 %; Immature Granulocytes Absolute 0.05 #; Lymphocytes # 0.3 10*3/uL (1.4-4.0); Lymphocytes % 6.3 % (21.3-54.2); Mean Corpuscular Volume 86.3 FL (87-102); Mean Platelet Volume 10.9 FL (9.6-12.0); Monocytes % 4.2 % (1.7-12.7); NRBC # 0.02 10*3/uL; Neutrophils % 88.2 % (38.7-73.9); Platelet Count 145 T/CUMM (130-400); Red Blood Count 3.14 MC/CUMM (3.8-5.5); Red Cell Distribution Width 19.7 % (9.3-17.3); White Blood Count 4.7 T/CUMM (4-12)
[2021-03-11 07:40] LABS: Calcium 8.7 MG/DL (8.5-10.1); Osmolality,Calculated 285.4 MOS/KG (273-304); Potassium 4.2 MMOL/L (3.5-5.1)
[2021-03-11] MEDS: INSULIN REGULAR 100 UNIT/ML SUBCUT SCH ×4 (08:49→21:45)
[2021-03-11] MEDS: ZINC GLUCONATE 50 MG TABLET PO SCH (08:50)
[2021-03-11] MEDS: SEVELAMER CARBONATE 800 MG TABLET PO SCH ×3 (08:50→18:12)
[2021-03-11] MEDS: amLODIPine 10 MG TABLET PO SCH (08:51)
[2021-03-11] MEDS: MULTIVITAMIN (BEROCCA) TABLET PO SCH (08:51)
[2021-03-11] MEDS: FAMOTIDINE 20 MG TABLET PO SCH ×2 (08:51→21:42)
[2021-03-11] MEDS: ASCORBIC ACID 500 MG TABLET PO SCH ×2 (08:51→21:42)
[2021-03-11] MEDS: cloNIDine 0.1 MG TABLET PO SCH ×2 (08:51→21:42)
[2021-03-11] MEDS: CETIRIZINE 10 MG TABLET PO SCH (08:52)
[2021-03-11] MEDS: AZITHROMYCIN 250 MG TABLET PO SCH (08:52)
[2021-03-11] MEDS: DEXAMETHASONE 4 MG/1 ML VIAL IV SCH (08:54)
[2021-03-11] MEDS: HEPARIN 5,000 UNIT/1 ML VIAL SUBCUT SCH (18:12)
[2021-03-12] MEDS: HEPARIN 5,000 UNIT/1 ML VIAL SUBCUT SCH ×3 (01:39→17:18)
[2021-03-12 06:08] LABS: Basophils % 0.3 % (0.0-0.8); Hematocrit 26.8 VOL% (35.7-47.0); Hemoglobin 8.8 GM/DL (12.0-16.0); Immature Granulocytes % 1.3 %; Immature Granulocytes Absolute 0.05 #; Lymphocytes # 0.6 10*3/uL (1.4-4.0); Lymphocytes % 14.5 % (21.3-54.2); Mean Corpuscular HGB Conc 32.8 GM/DL (32-36); Mean Corpuscular Volume 83.2 FL (87-102); Monocytes % 6.9 % (1.7-12.7); NRBC # 0.16 10*3/uL; Platelet Count 120 T/CUMM (130-400); Red Blood Count 3.22 MC/CUMM (3.8-5.5); Red Cell Distribution Width 19.3 % (9.3-17.3); White Blood Count 3.9 T/CUMM (4-12)
[2021-03-12 06:36] LABS: Hypochromasia 1+; Microcytosis 1+
[2021-03-12 06:57] LABS: Calcium 8.9 MG/DL (8.5-10.1); Ferritin 27796.3 ng/ml (8-252); Osmolality,Calculated 281.5 MOS/KG (273-304); Potassium 4.3 MMOL/L (3.5-5.1)
[2021-03-12] MEDS: AZITHROMYCIN 250 MG TABLET PO SCH (09:54)
[2021-03-12] MEDS: MULTIVITAMIN (BEROCCA) TABLET PO SCH (09:54)
[2021-03-12] MEDS: INSULIN REGULAR 100 UNIT/ML SUBCUT SCH ×4 (09:54→21:39)
[2021-03-12] MEDS: ASCORBIC ACID 500 MG TABLET PO SCH ×2 (09:55→21:56)
[2021-03-12] MEDS: SEVELAMER CARBONATE 800 MG TABLET PO SCH ×3 (09:55→17:17)
[2021-03-12] MEDS: CETIRIZINE 10 MG TABLET PO SCH (09:55)
[2021-03-12] MEDS: ZINC GLUCONATE 50 MG TABLET PO SCH (09:55)
[2021-03-12] MEDS: FAMOTIDINE 20 MG TABLET PO SCH ×2 (09:55→21:56)
[2021-03-12] MEDS: DEXAMETHASONE 4 MG/1 ML VIAL IV SCH (10:47)
[2021-03-12] MEDS: amLODIPine 10 MG TABLET PO SCH (10:48)
[2021-03-12] MEDS: cloNIDine 0.1 MG TABLET PO SCH ×3 (10:48→22:03)
[2021-03-13] MEDS: HEPARIN 5,000 UNIT/1 ML VIAL SUBCUT SCH ×2 (02:10→13:35)
[2021-03-13 06:25] LABS: Hematocrit 29.5 VOL% (35.7-47.0); Hemoglobin 9.2 GM/DL (12.0-16.0); Immature Granulocytes Absolute 0.05 #; Mean Corpuscular HGB Conc 31.2 GM/DL (32-36); Mean Corpuscular Volume 84.5 FL (87-102); Monocytes % 2.9 % (1.7-12.7); NRBC # 0.27 10*3/uL; Neutrophils % 77.1 % (38.7-73.9); Red Blood Count 3.49 MC/CUMM (3.8-5.5); Red Cell Distribution Width 20.1 % (9.3-17.3)
[2021-03-13 06:27] LABS: Platelet Count 112 T/CUMM (130-400); White Blood Count 5.2 T/CUMM (4-12)
[2021-03-13 06:48] LABS: Anisocytosis 1+; Hypochromasia 2+; Microcytosis 1+; Platelet Estimate Decreased
[2021-03-13 08:01] LABS: Calcium 8.9 MG/DL (8.5-10.1); Ferritin 76422.8 ng/ml (8-252)
[2021-03-13 08:02] LABS: Osmolality,Calculated 275.9 MOS/KG (273-304); Potassium 4.5 MMOL/L (3.5-5.1)
[2021-03-13] MEDS: INSULIN REGULAR 100 UNIT/ML SUBCUT SCH ×3 (08:36→17:27)
[2021-03-13] MEDS ORDERED: ETOMIDATE 20 MG/10 ML VIAL IV STA (10:03)
[2021-03-13] MEDS ORDERED: ROCURONIUM 100 MG/10 ML VIAL IV STA ×2 (10:03→10:17)
[2021-03-13] MEDS ORDERED: ROCURONIUM 500 MG in SODIUM CHLORIDE 0.9% 500 ML IV PRN (10:13)
[2021-03-13] MEDS ORDERED: fentaNYL INJ 1,250 MCG in SODIUM CHLORIDE 0.9% 225 ML IV PRN (10:15)
[2021-03-13] MEDS ORDERED: ROCURONIUM 100 MG/10 ML VIAL IV ONE ×2 (10:15→11:32)
[2021-03-13] MEDS ORDERED: HEPARIN LOCK FLUSH 500 UNIT/5 ML SYRINGE IV ONE (10:34)
[2021-03-13] MEDS: MIDAZOLAM 100 MG in SODIUM CHLORIDE 0.9% 80 ML IV PRN (11:18)
[2021-03-13 11:19] LABS: ABG Base Excess -8.5 MMOL/L (-2.5-2.5); ABG HCO3 17.2 MMOL/L (20-26); ABG Oxygen Saturation 71.1 % (95-100); ABG PO2 56.9 MM HG (80-95); ABG TCO2 21.3 MMOL/L (23-27)
[2021-03-13 11:25] LABS: ABG PCO2 70.1 MM HG (35-48)
[2021-03-13] MEDS ORDERED: ETOMIDATE 20 MG/10 ML VIAL IV ONE (11:32)
[2021-03-13 11:37] LABS: Calcium 8.7 MG/DL (8.5-10.1); Osmolality,Calculated 280.7 MOS/KG (273-304); Potassium 4.1 MMOL/L (3.5-5.1)
[2021-03-13] MEDS: SEVELAMER CARBONATE 800 MG TABLET PO SCH ×2 (13:34→16:52)
[2021-03-13] MEDS: cloNIDine 0.1 MG TABLET PO SCH ×2 (13:34→22:02)
[2021-03-13] MEDS: amLODIPine 10 MG TABLET PO SCH (13:34)
[2021-03-13] MEDS: FAMOTIDINE 20 MG TABLET PO SCH (13:35)
[2021-03-13] MEDS: MULTIVITAMIN (BEROCCA) TABLET PO SCH (13:45)
[2021-03-13] MEDS: DEXAMETHASONE 4 MG/1 ML VIAL IV SCH (13:45)
[2021-03-13] MEDS ORDERED: PHENYLEPHRINE DRIP 40 MG/250 ML PREMIX IV ONE (13:48)
[2021-03-13] MEDS ORDERED: NOREPINEPHRINE 8 MG in SODIUM CHLORIDE 0.9% 242 ML IV PRN (14:01)
[2021-03-13] MEDS ORDERED: NOREPINEPHRINE 4 MG/4 ML VIAL IV ONE (14:02)
[2021-03-13] MEDS: CETIRIZINE 10 MG TABLET PO SCH (14:10)
[2021-03-13] MEDS: HEPARIN DRIP 25,000 UNITS/500 ML PREMIX IV SCH (14:10)
[2021-03-13] MEDS: ASCORBIC ACID 500 MG TABLET PO SCH ×2 (14:10→21:55)
[2021-03-13] MEDS: AZITHROMYCIN 250 MG TABLET PO SCH (14:10)
[2021-03-13] MEDS: ZINC GLUCONATE 50 MG TABLET PO SCH (14:10)
[2021-03-13] MEDS ORDERED: SODIUM BICARBONATE 50 MEQ/50 ML VIAL IV STA (14:47)
[2021-03-13] MEDS: fentaNYL INJ 2,500 MCG in SODIUM CHLORIDE 0.9% 75 ML IV PRN (19:20)
[2021-03-13] MEDS: ROCURONIUM 1,000 MG in SODIUM CHLORIDE 0.9% 175 ML IV PRN (23:20)
[2021-03-14] MEDS: INSULIN REGULAR 100 UNIT/ML SUBCUT SCH ×4 (00:12→18:55)
[2021-03-14] MEDS: PHENYLEPHRINE INJ 80 MG in SODIUM CHLORIDE 0.9% 242 ML IV PRN (04:25)
[2021-03-14 04:26] LABS: ABG Base Excess 0.7 MMOL/L (-2.5-2.5); ABG HCO3 25.1 MMOL/L (20-26); ABG PCO2 40.1 MM HG (35-48); ABG PH 7.409 (7.35-7.45); ABG TCO2 23.5 MMOL/L (23-27); Allen Test Positive; Pt O2 Delivery Device Ventilator
[2021-03-14] MEDS: fentaNYL INJ 2,500 MCG in SODIUM CHLORIDE 0.9% 75 ML IV PRN ×3 (05:00→22:29)
[2021-03-14] MEDS ORDERED: NOREPINEPHRINE 4 MG/4 ML VIAL IV ONE (05:12)
[2021-03-14 05:48] LABS: Ferritin 170125.3 ng/ml (8-252)
[2021-03-14 05:50] LABS: Calcium 8.2 MG/DL (8.5-10.1); Osmolality,Calculated 281.1 MOS/KG (273-304); Potassium 4.6 MMOL/L (3.5-5.1)
[2021-03-14] MEDS: MIDAZOLAM 100 MG in SODIUM CHLORIDE 0.9% 80 ML IV PRN ×2 (06:00→23:24)
[2021-03-14] MEDS: SEVELAMER CARBONATE 800 MG TABLET PO SCH ×3 (08:00→18:20)
[2021-03-14] MEDS: cloNIDine 0.1 MG TABLET PO SCH ×2 (09:00→21:04)
[2021-03-14] MEDS: amLODIPine 10 MG TABLET PO SCH (09:00)
[2021-03-14] MEDS ORDERED: AZITHROMYCIN 250 MG TABLET ONE (10:23)
[2021-03-14 10:32] LABS: Albumin 2.4 G/DL (3.4-5.0); Bilirubin,Direct 0.19 MG/DL (0.0-0.20); Bilirubin,Indirect 0.3 MG/DL (0.0-1.0); Bilirubin,Total 0.5 MG/DL (0.20-1.00); Total Protein 7.4 G/DL (6.4-8.2)
[2021-03-14] MEDS: ZINC GLUCONATE 50 MG TABLET PO SCH (10:40)
[2021-03-14] MEDS: AZITHROMYCIN 250 MG TABLET PO SCH (10:40)
[2021-03-14] MEDS: MULTIVITAMIN (BEROCCA) TABLET PO SCH (10:40)
[2021-03-14] MEDS: ASCORBIC ACID 500 MG TABLET PO SCH ×2 (10:40→21:04)
[2021-03-14] MEDS: FAMOTIDINE 20 MG TABLET PO SCH (10:40)
[2021-03-14] MEDS: CETIRIZINE 10 MG TABLET PO SCH (10:40)
[2021-03-14] MEDS: DEXAMETHASONE 4 MG/1 ML VIAL IV SCH (10:40)
[2021-03-14] MEDS: HEPARIN DRIP 25,000 UNITS/500 ML PREMIX IV SCH (11:44)
[2021-03-14] MEDS: HYDROXYCHLOROQUINE 200 MG TABLET PER TUBE SCH ×2 (13:40→21:04)
[2021-03-14] MEDS ORDERED: ACETAMINOPHEN 500 MG TABLET ONE (13:51)
[2021-03-14] MEDS ORDERED: ACETAMINOPHEN 500 MG TABLET PO STA (13:55)
[2021-03-15] MEDS: INSULIN REGULAR 100 UNIT/ML SUBCUT SCH ×5 (00:16→23:59)
[2021-03-15 03:14] LABS: ABG Base Excess -3.9 MMOL/L (-2.5-2.5); ABG HCO3 21.1 MMOL/L (20-26); ABG Oxygen Saturation 91.5 % (95-100); ABG PCO2 40.1 MM HG (35-48); ABG PH 7.339 (7.35-7.45); ABG PO2 71.8 MM HG (80-95); ABG TCO2 20.1 MMOL/L (23-27)
[2021-03-15 04:45] LABS: Basophils % 0.1 % (0.0-0.8); Hematocrit 27.9 VOL% (35.7-47.0); Hemoglobin 8.5 GM/DL (12.0-16.0); Immature Granulocytes Absolute 0.27 #; Lymphocytes % 14.6 % (21.3-54.2); Mean Corpuscular HGB Conc 30.5 GM/DL (32-36); Mean Corpuscular Volume 86.6 FL (87-102); Monocytes % 3.7 % (1.7-12.7); Neutrophils % 77.6 % (38.7-73.9); Platelet Count 176 T/CUMM (130-400); Red Blood Count 3.22 MC/CUMM (3.8-5.5); Red Cell Distribution Width 21.2 % (9.3-17.3); White Blood Count 6.7 T/CUMM (4-12)
[2021-03-15 05:04] LABS: Albumin 2.4 G/DL (3.4-5.0); Bilirubin,Total 0.8 MG/DL (0.20-1.00); Osmolality,Calculated 277.8 MOS/KG (273-304); Potassium 5.9 MMOL/L (3.5-5.1); Total Protein 7.8 G/DL (6.4-8.2)
[2021-03-15 05:37] LABS: Eosinophils 1 % (0-10); Hypochromasia Slight; Lymphocytes 10 % (20-55); Nucleated Red Blood Cells 6 (0-5); Platelet Estimate Normal; Segmented Neutrophils 87 % (50-85); Total Cells Counted 100
[2021-03-15] MEDS: fentaNYL INJ 2,500 MCG in SODIUM CHLORIDE 0.9% 75 ML IV PRN ×2 (06:37→17:17)
[2021-03-15] MEDS: ROCURONIUM 1,000 MG in SODIUM CHLORIDE 0.9% 175 ML IV PRN (08:00)
[2021-03-15] MEDS: ZINC GLUCONATE 50 MG TABLET PO SCH (09:20)
[2021-03-15] MEDS: CETIRIZINE 10 MG TABLET PO SCH (09:20)
[2021-03-15] MEDS: SEVELAMER CARBONATE 800 MG TABLET PO SCH ×3 (09:20→17:17)
[2021-03-15] MEDS: ASCORBIC ACID 500 MG TABLET PO SCH ×2 (09:21→20:59)
[2021-03-15] MEDS: HYDROXYCHLOROQUINE 200 MG TABLET PER TUBE SCH ×2 (09:21→20:59)
[2021-03-15] MEDS: FAMOTIDINE 20 MG TABLET PO SCH (09:21)
[2021-03-15] MEDS: MULTIVITAMIN (BEROCCA) TABLET PO SCH (09:21)
[2021-03-15] MEDS: DEXAMETHASONE 4 MG/1 ML VIAL IV SCH (09:23)
[2021-03-15] MEDS: PHENYLEPHRINE INJ 80 MG in SODIUM CHLORIDE 0.9% 242 ML IV PRN (10:00)
[2021-03-15] MEDS: amLODIPine 10 MG TABLET PO SCH (10:12)
[2021-03-15] MEDS: cloNIDine 0.1 MG TABLET PO SCH ×2 (10:12→21:00)
[2021-03-15 10:39] LABS: Ferritin 190525.8 ng/ml (8-252)
[2021-03-15] MEDS: HEPARIN DRIP 25,000 UNITS/500 ML PREMIX IV SCH ×2 (17:15→18:24)
[2021-03-16 03:44] LABS: ABG Base Excess -0.3 MMOL/L (-2.5-2.5); ABG HCO3 24.1 MMOL/L (20-26); ABG Oxygen Saturation 92.6 % (95-100); ABG PCO2 44.8 MM HG (35-48); ABG PH 7.359 (7.35-7.45); ABG PO2 72.5 MM HG (80-95); ABG TCO2 23.4 MMOL/L (23-27)
[2021-03-16 04:13] LABS: Basophils % 0.2 % (0.0-0.8); Hematocrit 27.6 VOL% (35.7-47.0); Hemoglobin 8.6 GM/DL (12.0-16.0); Immature Granulocytes % 5.6 %; Lymphocytes % 10.7 % (21.3-54.2); Mean Corpuscular HGB Conc 31.2 GM/DL (32-36); Mean Corpuscular Volume 86.8 FL (87-102); Mean Platelet Volume 11.9 FL (9.6-12.0); Monocytes % 3.8 % (1.7-12.7); NRBC # 1.51 10*3/uL; Neutrophils % 79.7 % (38.7-73.9); Platelet Count 279 T/CUMM (130-400); Red Blood Count 3.18 MC/CUMM (3.8-5.5); Red Cell Distribution Width 21.7 % (9.3-17.3); White Blood Count 8.9 T/CUMM (4-12)
[2021-03-16 04:39] LABS: Band Neutrophils 1 % (0-10); Hypochromasia 1+; Lymphocytes 9 % (20-55); Microcytosis 1+; Myelocytes 1 %; Nucleated Red Blood Cells 22 (0-5); Platelet Estimate Adequate; Segmented Neutrophils 85 % (50-85); Total Cells Counted 100
[2021-03-16 04:41] LABS: Albumin 2.3 G/DL (3.4-5.0); Calcium 9.4 MG/DL (8.5-10.1); Osmolality,Calculated 278.4 MOS/KG (273-304); Total Protein 7.9 G/DL (6.4-8.2)
[2021-03-16] MEDS: INSULIN REGULAR 100 UNIT/ML SUBCUT SCH ×3 (06:17→18:55)
[2021-03-16] MEDS: cloNIDine 0.1 MG TABLET PO SCH ×2 (10:50→20:52)
[2021-03-16] MEDS: amLODIPine 10 MG TABLET PO SCH (10:51)
[2021-03-16] MEDS: SEVELAMER CARBONATE 800 MG TABLET PO SCH ×3 (11:20→18:00)
[2021-03-16] MEDS: MULTIVITAMIN (BEROCCA) TABLET PO SCH (11:20)
[2021-03-16] MEDS: FAMOTIDINE 20 MG TABLET PO SCH (11:20)
[2021-03-16] MEDS: ASCORBIC ACID 500 MG TABLET PO SCH ×2 (11:20→20:53)
[2021-03-16] MEDS: HYDROXYCHLOROQUINE 200 MG TABLET PER TUBE SCH ×2 (11:20→20:53)
[2021-03-16] MEDS: ZINC GLUCONATE 50 MG TABLET PO SCH (11:21)
[2021-03-16] MEDS: CETIRIZINE 10 MG TABLET PO SCH (11:22)
[2021-03-16] MEDS: DEXAMETHASONE 4 MG/1 ML VIAL IV SCH (11:22)
[2021-03-16] MEDS: HEPARIN DRIP 25,000 UNITS/500 ML PREMIX IV SCH (12:54)
[2021-03-16] MEDS ORDERED: IBUPROFEN 100 MG/5 ML UDCUP PO PRN (18:14)
[2021-03-16] MEDS: ACETAMINOPHEN 325 MG/10.15 ML UDCUP PO PRN (18:30)
[2021-03-17 03:25] LABS: ABG Base Excess -1.3 MMOL/L (-2.5-2.5); ABG HCO3 25.5 MMOL/L (20-26); ABG Oxygen Saturation 93.8 % (95-100); ABG PCO2 53.3 MM HG (35-48); ABG PH 7.298 (7.35-7.45); ABG PO2 81.7 MM HG (80-95); ABG TCO2 27.2 MMOL/L (23-27)
[2021-03-17 04:31] LABS: Basophils # 0.1 10*3/uL (0.0-0.2); Basophils % 0.4 % (0.0-0.8); Eosinophils % 0.1 % (0.00-10.9); Hematocrit 29.6 VOL% (35.7-47.0); Hemoglobin 9.1 GM/DL (12.0-16.0); Immature Granulocytes % 5.7 %; Immature Granulocytes Absolute 1.07 #; Lymphocytes # 1.4 10*3/uL (1.4-4.0); Lymphocytes % 7.7 % (21.3-54.2); Mean Corpuscular HGB Conc 30.7 GM/DL (32-36); Mean Corpuscular Volume 86.8 FL (87-102); Monocytes % 2.3 % (1.7-12.7); NRBC # 1.57 10*3/uL; Neutrophils % 83.8 % (38.7-73.9); Platelet Count 345 T/CUMM (130-400); Red Blood Count 3.41 MC/CUMM (3.8-5.5); Red Cell Distribution Width 22.2 % (9.3-17.3); White Blood Count 18.8 T/CUMM (4-12)
[2021-03-17 04:50] LABS: Albumin 2.4 G/DL (3.4-5.0); Bilirubin,Total 0.7 MG/DL (0.20-1.00); Calcium 9.8 MG/DL (8.5-10.1); Osmolality,Calculated 289.4 MOS/KG (273-304); Potassium 5.2 MMOL/L (3.5-5.1); Total Protein 8.4 G/DL (6.4-8.2)
[2021-03-17 04:58] LABS: Band Neutrophils 3 % (0-10); Lymphocytes 4 % (20-55); Nucleated Red Blood Cells 6 (0-5); Segmented Neutrophils 92 % (50-85); Total Cells Counted 100
[2021-03-17 04:59] LABS: Platelet Estimate Normal
[2021-03-17 05:10] LABS: Calcium 9.8 MG/DL (8.5-10.1); Osmolality,Calculated 284.7 MOS/KG (273-304); Potassium 5.2 MMOL/L (3.5-5.1)
[2021-03-17] MEDS: INSULIN REGULAR 100 UNIT/ML SUBCUT SCH ×4 (06:21→18:48)
[2021-03-17] MEDS: ASCORBIC ACID 500 MG TABLET PO SCH ×2 (08:13→22:08)
[2021-03-17] MEDS: ZINC GLUCONATE 50 MG TABLET PO SCH (08:13)
[2021-03-17] MEDS: SEVELAMER CARBONATE 800 MG TABLET PO SCH ×3 (08:13→18:08)
[2021-03-17] MEDS: cloNIDine 0.1 MG TABLET PO SCH (08:13)
[2021-03-17] MEDS: DEXAMETHASONE 4 MG/1 ML VIAL IV SCH ×2 (08:13→22:08)
[2021-03-17] MEDS: HYDROXYCHLOROQUINE 200 MG TABLET PER TUBE SCH (08:14)
[2021-03-17] MEDS: CETIRIZINE 10 MG TABLET PO SCH (08:14)
[2021-03-17] MEDS: amLODIPine 10 MG TABLET PO SCH (08:14)
[2021-03-17] MEDS: MULTIVITAMIN (BEROCCA) TABLET PO SCH (08:14)
[2021-03-17] MEDS: FAMOTIDINE 20 MG TABLET PO SCH (08:21)
[2021-03-17] MEDS: PHENYLEPHRINE INJ 80 MG in SODIUM CHLORIDE 0.9% 242 ML IV PRN (10:02)
[2021-03-17] MEDS ORDERED: MORPHINE 2 MG/1 ML SYRINGE ONE (11:54)
[2021-03-17] MEDS ORDERED: MORPHINE 2 MG/1 ML SYRINGE IV ONE (11:55)
[2021-03-17] MEDS: MIDAZOLAM 100 MG in SODIUM CHLORIDE 0.9% 80 ML IV PRN (12:00)
[2021-03-17] MEDS ORDERED: ROCURONIUM 100 MG/10 ML VIAL IV ONE ×2 (12:03→12:09)
[2021-03-17] MEDS ORDERED: MIDAZOLAM 10 MG/2 ML VIAL ONE (12:03)
[2021-03-17] MEDS ORDERED: MIDAZOLAM 2 MG/2 ML VIAL IV ONE (12:09)
[2021-03-17] MEDS ORDERED: ROCURONIUM 1,000 MG in SODIUM CHLORIDE 0.9% 175 ML IV PRN (12:43)
[2021-03-17 12:55] LABS: ABG Base Excess -9.3 MMOL/L (-2.5-2.5); ABG HCO3 21.6 MMOL/L (20-26); ABG Oxygen Saturation 82.8 % (95-100); ABG PO2 72.2 MM HG (80-95); ABG TCO2 24.1 MMOL/L (23-27)
[2021-03-17 12:57] LABS: ABG PCO2 79.8 MM HG (35-48); ABG PH 7.051 (7.35-7.45)
[2021-03-17] MEDS: HEPARIN DRIP 25,000 UNITS/500 ML PREMIX IV SCH (13:08)
[2021-03-17] MEDS: INSULIN GLARGINE 100 UNIT/ML SUBCUT SCH (13:08)
[2021-03-17] MEDS: ACETAMINOPHEN 325 MG/10.15 ML UDCUP PO PRN (13:30)
[2021-03-17] MEDS ORDERED: SODIUM BICARBONATE 50 MEQ/50 ML SYRINGE IV ONE (14:05)
[2021-03-17 14:06] LABS: ABG Base Excess -7.2 MMOL/L (-2.5-2.5); ABG HCO3 18.2 MMOL/L (20-26); ABG Oxygen Saturation 72.2 % (95-100); ABG PO2 55.8 MM HG (80-95); ABG TCO2 22.9 MMOL/L (23-27)
[2021-03-17 14:08] LABS: ABG PCO2 75.2 MM HG (35-48); ABG PH 7.104 (7.35-7.45)
[2021-03-17] MEDS ORDERED: NOREPINEPHRINE 16 MG in SODIUM CHLORIDE 0.9% 234 ML IV PRN (14:44)
[2021-03-17] MEDS: LACTULOSE 20 GM/30 ML UDCUP PO SCH ×2 (16:48→22:08)
[2021-03-17] MEDS: MEROPENEM 500 MG in SODIUM CHLORIDE 0.9% 100 ML IV SCH (16:48)
[2021-03-18] MEDS: INSULIN REGULAR 100 UNIT/ML SUBCUT SCH ×4 (00:04→17:48)
[2021-03-18] MEDS: MIDAZOLAM 100 MG in SODIUM CHLORIDE 0.9% 80 ML IV PRN (01:14)
[2021-03-18] MEDS: HEPARIN DRIP 25,000 UNITS/500 ML PREMIX IV SCH ×2 (01:33→10:26)
[2021-03-18] MEDS: PHENYLEPHRINE INJ 80 MG in SODIUM CHLORIDE 0.9% 242 ML IV PRN ×2 (01:38→14:51)
[2021-03-18 05:38] LABS: Allen Test Positive; Pt O2 Delivery Device Ventilator
[2021-03-18 05:39] LABS: ABG Base Excess 0.7 MMOL/L (-2.5-2.5); ABG HCO3 28.1 MMOL/L (20-26); ABG PCO2 61.3 MM HG (35-48); ABG PH 7.279 (7.35-7.45)
[2021-03-18 05:48] LABS: Basophils # 0.1 10*3/uL (0.0-0.2); Basophils % 0.4 % (0.0-0.8); Eosinophils % 0.1 % (0.00-10.9); Hematocrit 26.9 VOL% (35.7-47.0); Hemoglobin 8.3 GM/DL (12.0-16.0); Immature Granulocytes % 5.8 %; Immature Granulocytes Absolute 1.61 #; Lymphocytes # 1.8 10*3/uL (1.4-4.0); Lymphocytes % 6.3 % (21.3-54.2); Mean Corpuscular HGB Conc 30.9 GM/DL (32-36); Mean Corpuscular Volume 86.2 FL (87-102); Mean Platelet Volume 13.1 FL (9.6-12.0); Monocytes % 3.1 % (1.7-12.7); NRBC # 2.83 10*3/uL; Neutrophils % 84.3 % (38.7-73.9); Platelet Count 335 T/CUMM (130-400); Red Blood Count 3.12 MC/CUMM (3.8-5.5); Red Cell Distribution Width 22.6 % (9.3-17.3)
[2021-03-18 06:22] LABS: Hypochromasia 1+; Lymphocytes 4 % (20-55); Nucleated Red Blood Cells 7 (0-5); Platelet Estimate Adequate; Segmented Neutrophils 93 % (50-85); Target Cells Slight; Total Cells Counted 100
[2021-03-18 06:24] LABS: Albumin 2.1 G/DL (3.4-5.0); Bilirubin,Total 0.9 MG/DL (0.20-1.00); Calcium 9.3 MG/DL (8.5-10.1); Osmolality,Calculated 292.5 MOS/KG (273-304); Total Protein 8.4 G/DL (6.4-8.2)
[2021-03-18 06:26] LABS: Potassium 6.6 MMOL/L (3.5-5.1)
[2021-03-18] MEDS ORDERED: INSULIN REGULAR 10 UNIT, CALCIUM GLUCONATE 1,000 MG in DEXTROSE 10% 250 ML IV ONE (07:25)
[2021-03-18] MEDS: INSULIN GLARGINE 100 UNIT/ML SUBCUT SCH (08:14)
[2021-03-18] MEDS: MULTIVITAMIN (BEROCCA) TABLET PO SCH (08:16)
[2021-03-18] MEDS: SEVELAMER CARBONATE 800 MG TABLET PO SCH ×3 (08:16→17:48)
[2021-03-18] MEDS: ASCORBIC ACID 500 MG TABLET PO SCH ×2 (08:16→20:16)
[2021-03-18] MEDS: FAMOTIDINE 20 MG TABLET PO SCH (08:16)
[2021-03-18] MEDS: LACTULOSE 20 GM/30 ML UDCUP PO SCH (08:16)
[2021-03-18] MEDS: DEXAMETHASONE 4 MG/1 ML VIAL IV SCH ×2 (08:16→20:16)
[2021-03-18] MEDS: CETIRIZINE 10 MG TABLET PO SCH (08:16)
[2021-03-18] MEDS: ZINC GLUCONATE 50 MG TABLET PO SCH (08:16)
[2021-03-18] MEDS: MEROPENEM 500 MG in SODIUM CHLORIDE 0.9% 100 ML IV SCH (09:06)
[2021-03-18 09:17] LABS: Ferritin 73064.9 ng/mL (8-252)
[2021-03-18] MEDS ORDERED: VANCOMYCIN INJ 500 MG in SODIUM CHLORIDE 0.9% 100 ML IV PRN (11:35)
[2021-03-18] MEDS ORDERED: VANCOMYCIN INJ 1,250 MG in SODIUM CHLORIDE 0.9% 250 ML IV ONE (15:00)
[2021-03-19] MEDS: INSULIN REGULAR 100 UNIT/ML SUBCUT SCH ×5 (01:18→23:58)
[2021-03-19 04:20] LABS: Allen Test Positive; Pt O2 Delivery Device Ventilator
[2021-03-19 04:21] LABS: ABG Base Excess -0.6 MMOL/L (-2.5-2.5); ABG HCO3 29.6 MMOL/L (20-26); ABG PO2 65.7 MM HG (80-95); ABG TCO2 32.4 MMOL/L (23-27)
[2021-03-19 04:22] LABS: ABG PH 7.133 (7.35-7.45)
[2021-03-19 04:23] LABS: ABG PCO2 90.5 MM HG (35-48)
[2021-03-19 04:36] LABS: Basophils # 0.1 10*3/uL (0.0-0.2); Basophils % 0.3 % (0.0-0.8); Hematocrit 28.4 VOL% (35.7-47.0); Hemoglobin 8.2 GM/DL (12.0-16.0); Immature Granulocytes Absolute 1.84 #; Lymphocytes # 2.2 10*3/uL (1.4-4.0); Lymphocytes % 8.3 % (21.3-54.2); Mean Corpuscular HGB Conc 28.9 GM/DL (32-36); Mean Corpuscular Volume 91.6 FL (87-102); Mean Platelet Volume 10.9 FL (9.6-12.0); Monocytes % 3.7 % (1.7-12.7); NRBC # 1.71 10*3/uL; Neutrophils % 80.7 % (38.7-73.9); Platelet Count 283 T/CUMM (130-400); Red Cell Distribution Width 23.4 % (9.3-17.3); White Blood Count 26.3 T/CUMM (4-12)
[2021-03-19] MEDS: ACETAMINOPHEN 325 MG/10.15 ML UDCUP PO PRN ×2 (04:45→21:20)
[2021-03-19 05:00] LABS: Albumin 2.2 G/DL (3.4-5.0); Band Neutrophils 2 % (0-10); Bilirubin,Total 0.5 MG/DL (0.20-1.00); Calcium 9.9 MG/DL (8.5-10.1); Hypochromasia 1+; Lymphocytes 6 % (20-55); Microcytosis 1+; Nucleated Red Blood Cells 7 (0-5); Osmolality,Calculated 293.2 MOS/KG (273-304); Platelet Estimate Adequate; Potassium 5.6 MMOL/L (3.5-5.1); Segmented Neutrophils 88 % (50-85); Total Cells Counted 100; Total Protein 8.7 G/DL (6.4-8.2)
[2021-03-19 06:53] LABS: Ferritin 68649.6 ng/mL (8-252)
[2021-03-19] MEDS: INSULIN GLARGINE 100 UNIT/ML SUBCUT SCH (09:10)
[2021-03-19] MEDS: ASCORBIC ACID 500 MG TABLET PO SCH ×2 (09:11→21:07)
[2021-03-19] MEDS: FAMOTIDINE 20 MG TABLET PO SCH (09:11)
[2021-03-19] MEDS: methylPREDNISolone SOD SUC 40 MG/1 ML VIAL IV SCH ×3 (09:11→23:58)
[2021-03-19] MEDS: SEVELAMER CARBONATE 800 MG TABLET PO SCH ×2 (09:11→13:01)
[2021-03-19] MEDS: ZINC GLUCONATE 50 MG TABLET PO SCH (09:11)
[2021-03-19] MEDS: CETIRIZINE 10 MG TABLET PO SCH (09:11)
[2021-03-19] MEDS: MULTIVITAMIN (BEROCCA) TABLET PO SCH (09:11)
[2021-03-19 09:45] LABS: ABG Base Excess 0.2 MMOL/L (-2.5-2.5); ABG HCO3 24.4 MMOL/L (20-26); ABG Oxygen Saturation 86.4 % (95-100); ABG PCO2 60.6 MM HG (35-48); ABG PO2 61.1 MM HG (80-95); ABG TCO2 26.4 MMOL/L (23-27)
[2021-03-19] MEDS: MEROPENEM 500 MG in SODIUM CHLORIDE 0.9% 100 ML IV SCH (10:26)
[2021-03-19] MEDS ORDERED: SODIUM POLYSTYRENE SULFATE 15 GM/60 ML BOTTLE PO ONE (10:57)
[2021-03-19] MEDS ORDERED: MORPHINE 2 MG/1 ML SYRINGE IV ONE (11:41)
[2021-03-19] MEDS ORDERED: METOPROLOL TARTRATE 5 MG/5 ML VIAL IV ONE ×2 (11:42→22:06)
[2021-03-19] MEDS: FLUCONAZOLE INJ 200 MG/100 ML PREMIX IV SCH (12:59)
[2021-03-19] MEDS: METOCLOPRAMIDE 10 MG/2 ML VIAL IV SCH ×3 (13:00→23:58)
[2021-03-19] MEDS: HEPARIN DRIP 25,000 UNITS/500 ML PREMIX IV SCH (14:23)
[2021-03-19] MEDS ORDERED: cloNIDine 0.1 MG TABLET PO PRN (15:31)
[2021-03-20 03:38] LABS: ABG Base Excess 0.7 MMOL/L (-2.5-2.5); ABG HCO3 24.9 MMOL/L (20-26); ABG Oxygen Saturation 82.7 % (95-100); ABG PH 7.258 (7.35-7.45); ABG PO2 57.7 MM HG (80-95); ABG TCO2 27.4 MMOL/L (23-27)
[2021-03-20] MEDS: METOCLOPRAMIDE 10 MG/2 ML VIAL IV SCH ×4 (04:17→22:42)
[2021-03-20 04:23] LABS: Basophils # 0.1 10*3/uL (0.0-0.2); Basophils % 0.3 % (0.0-0.8); Hemoglobin 6.9 GM/DL (12.0-16.0); Immature Granulocytes % 7.6 %; Immature Granulocytes Absolute 2.03 #; Lymphocytes # 2.9 10*3/uL (1.4-4.0); Lymphocytes % 10.7 % (21.3-54.2); Mean Corpuscular Volume 89.1 FL (87-102); Mean Platelet Volume 10.8 FL (9.6-12.0); Monocytes % 3.6 % (1.7-12.7); NRBC # 1.41 10*3/uL; Neutrophils % 77.8 % (38.7-73.9); Platelet Count 225 T/CUMM (130-400); Red Blood Count 2.58 MC/CUMM (3.8-5.5); Red Cell Distribution Width 23.1 % (9.3-17.3); White Blood Count 26.6 T/CUMM (4-12)
[2021-03-20 04:43] LABS: Lymphocytes 9 % (20-55); Nucleated Red Blood Cells 5 (0-5); Platelet Estimate Adequate; Segmented Neutrophils 87 % (50-85); Total Cells Counted 100
[2021-03-20 04:44] LABS: Hypochromasia 2+; Microcytosis 1+
[2021-03-20 04:46] LABS: Calcium 9.6 MG/DL (8.5-10.1); Osmolality,Calculated 299.7 MOS/KG (273-304); Potassium 5.3 MMOL/L (3.5-5.1); Total Protein 7.6 G/DL (6.4-8.2)
[2021-03-20] MEDS: INSULIN REGULAR 100 UNIT/ML SUBCUT SCH ×3 (05:46→19:04)
[2021-03-20] MEDS: methylPREDNISolone SOD SUC 40 MG/1 ML VIAL IV SCH ×3 (09:17→22:42)
[2021-03-20] MEDS: MULTIVITAMIN (BEROCCA) TABLET PO SCH (09:18)
[2021-03-20] MEDS: FAMOTIDINE 20 MG TABLET PO SCH (09:18)
[2021-03-20] MEDS: ZINC GLUCONATE 50 MG TABLET PO SCH (09:18)
[2021-03-20] MEDS: INSULIN GLARGINE 100 UNIT/ML SUBCUT SCH (09:18)
[2021-03-20] MEDS: ASCORBIC ACID 500 MG TABLET PO SCH ×2 (09:18→20:11)
[2021-03-20] MEDS: CETIRIZINE 10 MG TABLET PO SCH (09:20)
[2021-03-20] MEDS ORDERED: MORPHINE 2 MG/1 ML SYRINGE ONE (10:48)
[2021-03-20] MEDS: MORPHINE 2 MG/1 ML SYRINGE IV PRN (10:49)
[2021-03-20] MEDS: MEROPENEM 500 MG in SODIUM CHLORIDE 0.9% 100 ML IV SCH (11:14)
[2021-03-20] MEDS ORDERED: METOPROLOL TARTRATE 5 MG/5 ML VIAL IV ONE ×2 (11:22→11:23)
[2021-03-20] MEDS ORDERED: VANCOMYCIN INJ 500 MG in SODIUM CHLORIDE 0.9% 100 ML IV ONE ×2 (12:00→16:00)
[2021-03-20] MEDS: FLUCONAZOLE INJ 200 MG/100 ML PREMIX IV SCH (12:23)
[2021-03-20] MEDS ORDERED: METOPROLOL TARTRATE 5 MG/5 ML VIAL IV PRN (14:02)
[2021-03-21] MEDS: INSULIN REGULAR 100 UNIT/ML SUBCUT SCH ×4 (00:02→18:41)
[2021-03-21 04:13] LABS: Basophils # 0.1 10*3/uL (0.0-0.2); Basophils % 0.2 % (0.0-0.8); Hematocrit 31.2 VOL% (35.7-47.0); Immature Granulocytes % 7.1 %; Immature Granulocytes Absolute 2.05 #; Lymphocytes # 2.7 10*3/uL (1.4-4.0); Lymphocytes % 9.5 % (21.3-54.2); Mean Corpuscular HGB Conc 30.1 GM/DL (32-36); Mean Corpuscular Volume 91.5 FL (87-102); Mean Platelet Volume 11.1 FL (9.6-12.0); Monocytes % 2.5 % (1.7-12.7); Neutrophils % 80.7 % (38.7-73.9); Red Cell Distribution Width 19.9 % (9.3-17.3); White Blood Count 28.7 T/CUMM (4-12)
[2021-03-21 04:19] LABS: Red Blood Count 3.41 MC/CUMM (3.8-5.5)
[2021-03-21 04:20] LABS: Hemoglobin 9.4 GM/DL (12.0-16.0); Platelet Count 152 T/CUMM (130-400)
[2021-03-21 04:36] LABS: Hypochromasia 1+; Lymphocytes 7 % (20-55); Microcytosis 1+; Nucleated Red Blood Cells 4 (0-5); Platelet Estimate Adequate; Segmented Neutrophils 91 % (50-85); Total Cells Counted 100
[2021-03-21 04:41] LABS: Albumin 2.2 G/DL (3.4-5.0); Bilirubin,Total 0.6 MG/DL (0.20-1.00); Calcium 9.6 MG/DL (8.5-10.1); Total Protein 7.8 G/DL (6.4-8.2)
[2021-03-21 04:54] LABS: ABG Base Excess 1.2 MMOL/L (-2.5-2.5); ABG HCO3 25.3 MMOL/L (20-26); ABG Oxygen Saturation 89.4 % (95-100); ABG PCO2 60.4 MM HG (35-48); ABG PH 7.288 (7.35-7.45); ABG PO2 63.8 MM HG (80-95); ABG TCO2 26.8 MMOL/L (23-27)
[2021-03-21 05:17] LABS: Ferritin 30424.8 ng/mL (8-252)
[2021-03-21] MEDS: METOCLOPRAMIDE 10 MG/2 ML VIAL IV SCH ×4 (06:10→23:19)
[2021-03-21] MEDS: methylPREDNISolone SOD SUC 40 MG/1 ML VIAL IV SCH ×3 (08:52→23:19)
[2021-03-21] MEDS: INSULIN GLARGINE 100 UNIT/ML SUBCUT SCH (08:59)
[2021-03-21] MEDS: CETIRIZINE 10 MG TABLET PO SCH (08:59)
[2021-03-21] MEDS: MULTIVITAMIN (BEROCCA) TABLET PO SCH (08:59)
[2021-03-21] MEDS: ZINC GLUCONATE 50 MG TABLET PO SCH (08:59)
[2021-03-21] MEDS: ASCORBIC ACID 500 MG TABLET PO SCH ×2 (08:59→20:54)
[2021-03-21] MEDS: FAMOTIDINE 20 MG TABLET PO SCH (09:01)
[2021-03-21] MEDS: MEROPENEM 500 MG in SODIUM CHLORIDE 0.9% 100 ML IV SCH (09:05)
[2021-03-21] MEDS: FLUCONAZOLE INJ 200 MG/100 ML PREMIX IV SCH (12:56)
[2021-03-21] MEDS: MORPHINE 2 MG/1 ML SYRINGE IV PRN (15:07)
[2021-03-21] MEDS: MIDAZOLAM 100 MG in SODIUM CHLORIDE 0.9% 80 ML IV PRN (15:21)
[2021-03-21] MEDS ORDERED: cloNIDine 0.1 MG TABLET PO PRN (15:26)
[2021-03-21] MEDS ORDERED: METOPROLOL TARTRATE 5 MG/5 ML VIAL IV ONE (15:28)
[2021-03-21] MEDS: METOPROLOL TARTRATE 5 MG/5 ML VIAL IV PRN (15:30)
[2021-03-22] MEDS: INSULIN REGULAR 100 UNIT/ML SUBCUT SCH ×4 (00:01→17:31)
[2021-03-22 04:11] LABS: ABG Base Excess -1.5 MMOL/L (-2.5-2.5); ABG PCO2 66.9 MM HG (35-48); ABG PH 7.223 (7.35-7.45); ABG PO2 79.4 MM HG (80-95); Allen Test Positive; Pt O2 Delivery Device Ventilator
[2021-03-22 04:16] LABS: Basophils # 0.1 10*3/uL (0.0-0.2); Basophils % 0.2 % (0.0-0.8); Hematocrit 30.8 VOL% (35.7-47.0); Hemoglobin 9.5 GM/DL (12.0-16.0); Immature Granulocytes % 5.4 %; Immature Granulocytes Absolute 1.63 #; Lymphocytes # 2.4 10*3/uL (1.4-4.0); Lymphocytes % 8.1 % (21.3-54.2); Mean Corpuscular HGB Conc 30.8 GM/DL (32-36); Mean Corpuscular Volume 90.6 FL (87-102); Monocytes % 3.5 % (1.7-12.7); NRBC # 0.64 10*3/uL; Neutrophils % 82.8 % (38.7-73.9); Red Cell Distribution Width 20.1 % (9.3-17.3); White Blood Count 30.1 T/CUMM (4-12)
[2021-03-22 04:17] LABS: Platelet Count 101 T/CUMM (130-400)
[2021-03-22 04:55] LABS: Calcium 9.3 MG/DL (8.5-10.1); Ferritin 21510.1 ng/mL (8-252); Osmolality,Calculated 286.2 MOS/KG (273-304); Potassium 4.3 MMOL/L (3.5-5.1)
[2021-03-22] MEDS: METOCLOPRAMIDE 10 MG/2 ML VIAL IV SCH ×3 (05:44→17:22)
[2021-03-22 07:00] LABS: Anisocytosis 2+; Band Neutrophils 16 % (0-10); Basophilic Stippling Slight; Hypochromasia Slight; Lymphocytes 7 % (20-55); Metamyelocytes 3 %; Nucleated Red Blood Cells 1 (0-5); Platelet Estimate Adequate; Segmented Neutrophils 71 % (50-85); Smudge Cells Few; Total Cells Counted 100
[2021-03-22 07:01] LABS: Macrocytosis 1+
[2021-03-22] MEDS: methylPREDNISolone SOD SUC 40 MG/1 ML VIAL IV SCH ×2 (07:03→19:55)
[2021-03-22] MEDS ORDERED: MINERAL OIL/PETROLATUM OPH OINT 3.5 GM TUBE BOTH EYES PRN (07:58)
[2021-03-22] MEDS: INSULIN GLARGINE 100 UNIT/ML SUBCUT SCH (09:14)
[2021-03-22] MEDS: CETIRIZINE 10 MG TABLET PO SCH (09:16)
[2021-03-22] MEDS: ZINC GLUCONATE 50 MG TABLET PO SCH (09:16)
[2021-03-22] MEDS: ASCORBIC ACID 500 MG TABLET PO SCH ×2 (09:16→20:00)
[2021-03-22] MEDS: MULTIVITAMIN (BEROCCA) TABLET PO SCH (09:16)
[2021-03-22] MEDS: FAMOTIDINE 20 MG TABLET PO SCH (09:16)
[2021-03-22] MEDS: MEROPENEM 500 MG in SODIUM CHLORIDE 0.9% 100 ML IV SCH (09:17)
[2021-03-22] MEDS: MINERAL OIL/PETROLATUM OPH OINT 3.5 GM TUBE BOTH EYES SCH ×2 (09:18→21:26)
[2021-03-22] MEDS: FLUCONAZOLE INJ 200 MG/100 ML PREMIX IV SCH (12:05)
[2021-03-22] MEDS: HEPARIN DRIP 25,000 UNITS/500 ML PREMIX IV SCH (12:10)
[2021-03-22] MEDS ORDERED: PHENYLEPHRINE DRIP 40 MG/250 ML PREMIX IV ONE (13:21)
[2021-03-22] MEDS ORDERED: PHENYLEPHRINE DRIP 40 MG/250 ML PREMIX IV PRN (13:22)
[2021-03-22] MEDS ORDERED: HEPARIN 5,000 UNIT/1 ML VIAL IV PRN (18:57)
[2021-03-23] MEDS: METOCLOPRAMIDE 10 MG/2 ML VIAL IV SCH ×5 (00:35→22:46)
[2021-03-23] MEDS: INSULIN REGULAR 100 UNIT/ML SUBCUT SCH ×4 (01:06→18:01)
[2021-03-23 03:59] LABS: Basophils # 0.1 10*3/uL (0.0-0.2); Basophils % 0.2 % (0.0-0.8); Hematocrit 31.1 VOL% (35.7-47.0); Hemoglobin 9.4 GM/DL (12.0-16.0); Immature Granulocytes % 6.1 %; Immature Granulocytes Absolute 1.87 #; Lymphocytes # 1.5 10*3/uL (1.4-4.0); Lymphocytes % 4.9 % (21.3-54.2); Mean Corpuscular HGB Conc 30.2 GM/DL (32-36); Mean Corpuscular Volume 91.7 FL (87-102); Monocytes % 3.9 % (1.7-12.7); NRBC # 0.63 10*3/uL; Neutrophils % 84.9 % (38.7-73.9); Red Blood Count 3.39 MC/CUMM (3.8-5.5); Red Cell Distribution Width 20.4 % (9.3-17.3); White Blood Count 30.9 T/CUMM (4-12)
[2021-03-23 04:06] LABS: Platelet Count 103 T/CUMM (130-400)
[2021-03-23 04:10] LABS: ABG Base Excess -5.8 MMOL/L (-2.5-2.5); ABG HCO3 21.8 MMOL/L (20-26); ABG Oxygen Saturation 94.3 % (95-100); ABG PCO2 52.5 MM HG (35-48); ABG PH 7.236 (7.35-7.45); ABG PO2 87.3 MM HG (80-95); ABG TCO2 23.4 MMOL/L (23-27); Allen Test Positive; Pt O2 Delivery Device Ventilator
[2021-03-23 04:26] LABS: Albumin 2.1 G/DL (3.4-5.0); Bilirubin,Total 1.4 MG/DL (0.20-1.00); Calcium 8.7 MG/DL (8.5-10.1); Ferritin 16820.3 ng/mL (8-252); Osmolality,Calculated 281.2 MOS/KG (273-304); Potassium 4.4 MMOL/L (3.5-5.1); Total Protein 7.7 G/DL (6.4-8.2)
[2021-03-23 05:41] LABS: Anisocytosis 2+; Band Neutrophils 9 % (0-10); Lymphocytes 3 % (20-55); Macrocytosis 1+; Metamyelocytes 3 %; Myelocytes 1 %; Nucleated Red Blood Cells 5 (0-5); Platelet Estimate Adequate; Polychromasia Slight; Segmented Neutrophils 79 % (50-85); Smudge Cells 1+; Total Cells Counted 100
[2021-03-23] MEDS: methylPREDNISolone SOD SUC 40 MG/1 ML VIAL IV SCH ×2 (06:29→18:30)
[2021-03-23] MEDS: MIDAZOLAM 100 MG in SODIUM CHLORIDE 0.9% 80 ML IV PRN (07:50)
[2021-03-23] MEDS ORDERED: SODIUM CHLORIDE 0.9% 1,000 ML IV SCH (08:00)
[2021-03-23] MEDS: PANTOPRAZOLE 40 MG VIAL IV SCH ×2 (09:25→21:46)
[2021-03-23] MEDS: ASCORBIC ACID 500 MG TABLET PO SCH ×2 (09:25→21:41)
[2021-03-23] MEDS: INSULIN GLARGINE 100 UNIT/ML SUBCUT SCH (09:26)
[2021-03-23] MEDS: MULTIVITAMIN (BEROCCA) TABLET PO SCH (09:26)
[2021-03-23] MEDS: MINERAL OIL/PETROLATUM OPH OINT 3.5 GM TUBE BOTH EYES SCH ×2 (09:26→21:41)
[2021-03-23] MEDS: ZINC GLUCONATE 50 MG TABLET PO SCH (09:26)
[2021-03-23] MEDS: CETIRIZINE 10 MG TABLET PO SCH (09:26)
[2021-03-23] MEDS: METOPROLOL TARTRATE 5 MG/5 ML VIAL IV PRN (11:11)
[2021-03-23] MEDS: MEROPENEM 500 MG in SODIUM CHLORIDE 0.9% 100 ML IV SCH (11:16)
[2021-03-23 11:59] LABS: Hematocrit 33.9 VOL% (35.7-47.0); Hemoglobin 10.1 GM/DL (12.0-16.0)
[2021-03-23] MEDS: ACETAMINOPHEN 325 MG/10.15 ML UDCUP PO PRN (12:57)
[2021-03-23] MEDS: FLUCONAZOLE INJ 200 MG/100 ML PREMIX IV SCH (12:58)
[2021-03-23 18:07] LABS: Hematocrit 29.2 VOL% (35.7-47.0); Hemoglobin 8.9 GM/DL (12.0-16.0)
[2021-03-24] MEDS: INSULIN REGULAR 100 UNIT/ML SUBCUT SCH ×2 (01:48→06:11)
[2021-03-24] MEDS: METOPROLOL TARTRATE 5 MG/5 ML VIAL IV PRN (03:58)
[2021-03-24 04:18] LABS: ABG Base Excess -8.4 MMOL/L (-2.5-2.5); ABG HCO3 17.1 MMOL/L (20-26); ABG Oxygen Saturation 61.5 % (95-100); ABG PCO2 59.4 MM HG (35-48); ABG PO2 42.8 MM HG (80-95); ABG TCO2 19.9 MMOL/L (23-27); Allen Test Positive; Pt O2 Delivery Device Ventilator
[2021-03-24 05:02] LABS: Basophils # 0.1 10*3/uL (0.0-0.2); Basophils % 0.2 % (0.0-0.8); Eosinophils # 0.2 10*3/uL (0.0-0.87); Eosinophils % 0.5 % (0.00-10.9); Hematocrit 35.3 VOL% (35.7-47.0); Hemoglobin 10.6 GM/DL (12.0-16.0); Immature Granulocytes % 6.9 %; Immature Granulocytes Absolute 2.65 #; Lymphocytes % 2.6 % (21.3-54.2); Mean Corpuscular Volume 93.9 FL (87-102); Monocytes % 2.3 % (1.7-12.7); NRBC # 0.94 10*3/uL; Neutrophils % 87.5 % (38.7-73.9); Platelet Count 118 T/CUMM (130-400); Red Blood Count 3.76 MC/CUMM (3.8-5.5); Red Cell Distribution Width 21.2 % (9.3-17.3); White Blood Count 38.2 T/CUMM (4-12)
[2021-03-24 05:24] LABS: Band Neutrophils 2 % (0-10); Lymphocytes 2 % (20-55); Platelet Estimate Decreased; Segmented Neutrophils 94 % (50-85); Total Cells Counted 100
[2021-03-24 05:25] LABS: Hypochromasia Slight; Macrocytosis Slight; Polychromasia Slight
[2021-03-24] MEDS: METOCLOPRAMIDE 10 MG/2 ML VIAL IV SCH ×2 (05:45→11:24)
[2021-03-24 06:17] LABS: Albumin 2.2 G/DL (3.4-5.0); Bilirubin,Total 1.1 MG/DL (0.20-1.00); Calcium 8.9 MG/DL (8.5-10.1); Ferritin 19366.6 ng/mL (8-252); Osmolality,Calculated 280.7 MOS/KG (273-304); Potassium 4.4 MMOL/L (3.5-5.1); Total Protein 8.4 G/DL (6.4-8.2)
[2021-03-24 07:24] VITALS: BP 106/52
[2021-03-24] MEDS ORDERED: methylPREDNISolone SOD SUC 40 MG/1 ML VIAL IV SCH (09:00)
[2021-03-24] MEDS: ASCORBIC ACID 500 MG TABLET PO SCH (09:10)
[2021-03-24] MEDS: ZINC GLUCONATE 50 MG TABLET PO SCH (09:10)
[2021-03-24] MEDS: CETIRIZINE 10 MG TABLET PO SCH (09:10)
[2021-03-24] MEDS: INSULIN GLARGINE 100 UNIT/ML SUBCUT SCH (09:11)
[2021-03-24] MEDS: MULTIVITAMIN (BEROCCA) TABLET PO SCH (09:11)
[2021-03-24] MEDS: PANTOPRAZOLE 40 MG VIAL IV SCH (09:11)
[2021-03-24] MEDS: MEROPENEM 500 MG in SODIUM CHLORIDE 0.9% 100 ML IV SCH (09:12)
[2021-03-24] MEDS: MINERAL OIL/PETROLATUM OPH OINT 3.5 GM TUBE BOTH EYES SCH (09:12)
[2021-03-24] MEDS ORDERED: LORazepam 2 MG/1 ML VIAL IV PRN (11:21)
[2021-03-24] MEDS ORDERED: MORPHINE 2 MG/1 ML SYRINGE IV PRN (11:21)
== END 2021-03-24 12:27 | disposition expired | DRG 130 ==
LOC: EDUNIT# → EDBD → N.ED 14:59 → SUATTDRO 20:30 → N.EDINP 20:30 → N.2E 03-11 05:13 → N.EDINP 03-13 11:41 → N.ICU 03-14 16:13
PROVIDERS: ADMIT Hospitalist; ATTEND Internal Medicine